=== PATIENT | male | born 1945 | race Caucasian/White ===

== ENCOUNTER → 2017-04-20 | Outpatient (CLI) | payer MEDICARE, OTHER ==
[2015-01-25 20:20] VITALS: BP 122/57
--- NOTE | 2017-04-20 11:28 | RAD ---
INDICATION: Abdominal pain. COMPARISON: None. TECHNIQUE: Grayscale and color ultrasound images obtained through the abdomen. FINDINGS: Aorta/IVC: Largely obscured. Pancreas: Poorly seen. Gallbladder: Gallbladder wall measures up to about 6 mm in portion. Liver: Echogenicity is unremarkable in the visualized portions. Common Bile Duct: Not dilated. Right Kidney: No hydronephrosis. Partially obscured. Left Kidney: No hydronephrosis. Spleen: Unremarkable. IMPRESSION: Thickening of the gallbladder wall is seen. This is a nonspecific finding and could be reactive to adjacent hepatic inflammation, from primary gallbladder inflammation or a systemic process such as hypoproteinemia. If further clarification is desired nuclear hepatobiliary scan may be helpful to further evaluate to ensure that this is not from causes such as cholecystitis. Common bile duct is not dilated.
== END | disposition home or self-care (01) ==
LOC: US 10:50
PROVIDERS: ATTEND Emergency Medicine
DX: K81.9 Cholecystitis, unspecified (principal)
CPT/HCPCS: 76700

== ENCOUNTER → 2017-05-28 | Outpatient (CLI) | payer MEDICARE, OTHER ==
[2015-01-25 20:20] VITALS: BP 122/57
[~2017-05-28] MED LIST: ALPR0.5T6 PO; ASPI-612 PO; CLON0.5T3 PO; ERGO500027 PO; ESOM40CA PO; GADOBUTROL 7.5 MMOL/7.5 ML VIAL IV ONE; IOHEXOL 300 MG/ML 100ML VIAL. IV ONE; LEVO50TA5 PO; LOVA20TA2 PO; MELO7.5T29 PO; PARO40TA3 PO; TAMS0.4C2 PO
--- NOTE | 2017-05-28 12:42 | KCIC ---
EXAM: Brain and internal auditory canal MRI with and without contrast. HISTORY: Retrocochlear masses. Cochlear implant preoperative evaluation. TECHNIQUE: Multiplanar, multisequence magnetic resonance imaging of the brain an internal auditory canals was performed prior to and following the administration of 7 cc Gadavist intravenous contrast. COMPARISON: Correlation is made with a temporal bone CT performed on the same date. FINDINGS: There is no restricted diffusion to suggest acute or subacute infarction. There is no susceptibility effect to suggest hemorrhage. There is no mass effect or midline shift. There is no hydrocephalus. There are a few scattered foci of T2/FLAIR hyperintensity within the cerebral white matter, a nonspecific finding. There is severe paranasal sinus mucosal thickening with maxillary sinus air-fluid levels. There is evidence of lens surgery. The mastoid air cells are clear. There are normal flow voids within the cerebral vessels. The internal auditory canals, membranous labyrinths, facial and vestibulocochlear nerves and trigeminal nerve complexes are unremarkable. The cerebellopontine angles are unremarkable. The postcontrast images are slightly limited due to motion. No suspicious enhancing lesion is seen. IMPRESSION: 1. No acute intracranial finding. 2. Few foci of signal change within the cerebral white matter, likely due to chronic small vessel disease. 3. Severe pansinusitis. 4. Unremarkable internal auditory canals. Please refer to the separate report for the temporal bone CT on the same date for additional findings. Electronically signed by: Malorie Castillo MD (05/28/2017 12:39 PM) [facility]
--- NOTE | 2017-05-28 13:19 | KCIC ---
EXAM: Temporal bone CT with and without contrast. HISTORY: Hearing loss. Cochlear implant preoperative evaluation. TECHNIQUE: Computed tomographic images of the temporal bones were obtained according to high-resolution protocol prior to and following the administration of 50 cc Omnipaque 300 intravenous contrast. *One or more of the following individualized dose reduction techniques were utilized for this examination: 1. Automated exposure control. 2. Adjustment of the mA and/or kV according to patient size. 3. Use of iterative reconstruction technique. COMPARISON: Correlation is made with a brain and internal auditory canal MRI performed on the same date. FINDINGS: The mastoid air cells are clear. The external auditory canals are clear. The tympanic membranes and ossicular chains are intact. There is no abnormal middle ear opacification. The bony labyrinths are unremarkable. There is no evidence of dehiscence. The carotid and jugular canals are normal in position. The temporomandibular joints are intact. There is severe paranasal sinus mucosal thickening with bilateral maxillary sinus air-fluid levels. There is a right maxillary sinus wall thickening due to the sequela of chronic sinusitis. The visualized portions of the brain and calvarium are unremarkable. IMPRESSION: 1. Unremarkable temporal bones. No findings correlate with hearing loss. 2. Severe pansinusitis. Electronically signed by: Malorie Castillo MD (05/28/2017 1:15 PM) [facility]
== END | disposition home or self-care (01) ==
LOC: KCIC MRI 09:58
DX: Z01.818 Encounter for other preprocedural examination (principal); J32.4 Chronic pansinusitis
CPT/HCPCS: 70553; 82565; A9585; Q9967

== ENCOUNTER 2018-10-10 01:58 | Inpatient (IN) | payer MEDICARE, OTHER ==
[2018-10-10] VITALS (8 sets, daily range): BP systolic 84–119; BP diastolic 46–67
[~2018-10-10] VITALS: Ht 177.8 cm; Wt 74.1 kg
[~2018-10-10 01:58] MED LIST changes: +CLON0.5T11 PO; -CLON0.5T3 PO; -GADOBUTROL 7.5 MMOL/7.5 ML VIAL IV ONE; -IOHEXOL 300 MG/ML 100ML VIAL. IV ONE
[2018-10-10 02:20] LABS: BASO % 0 % (0-3); EOS % 0 % (0-3); HEMATOCRIT 43.7 % (39.0-53.0); HEMOGLOBIN 14.8 g/dL (13.0-17.5); LYMPH # 0.2 x10^3/uL (1.0-4.8); LYMPH % 4 % (24-48); MEAN CORPUSCULAR HEMOGLOBIN 33 pg (25-35); MEAN CORPUSCULAR HGB CONC 34 g/dL (31-37); MEAN CORPUSCULAR VOLUME 97 fL (79-100); MONO # 0.1 x10^3/uL (0.0-1.1); MONO % 3 % (0-9); NEUT # 3.8 x10^3uL (1.8-7.7); NEUT % 93 % (31-73); PLATELET COUNT 208 x10^3/uL (140-400); RED BLOOD COUNT 4.53 x10^6/uL (4.30-5.70); RED CELL DISTRIBUTION WIDTH 13.3 % (11.5-14.5); WHITE BLOOD COUNT 4.1 x10^3/uL (4.0-11.0)
--- NOTE | 2018-10-10 02:28 | PHYS DOC ---
Past Medical History Past Medical History: Anxiety, Asthma, Depression, GERD, High Cholesterol, Other Additional Past Medical Histor: CHRONIC FOOT PAIN Past Surgical History: Tonsillectomy, Other Additional Past Surgical Histo: BILAT CATARACT REMOVAL Alcohol Use: None Drug Use: None Adult General Chief Complaint Chief Complaint: CHEST PAIN HPI HPI Patient is a 72 year old male who presents with abdominal pain. Pain started around 2pm yesterday. By 4pm he ate [employer] and the pain had gotten worse. The pain is located in his lower abdomen. Rated a 10/10 and sharp. Now the pain has moved up to his chest and he is SOA. Described as a cramping pain. He feels like he just "ran two miles" and cant catch his breath. He is nauseous, started vomiting and has dry heaves. No diarrhea. Denies any lung or heart conditions. Denies any abdominal surgeries. Denies fever, chills or recent illness. HE DOES DDRINK ALCOHOL BUT NOT EVERY DAY[] Review of Systems Review of Systems Constitutional: Denies fever or chills [] Eyes: Denies change in visual acuity, redness, or eye pain [] HENT: Denies nasal congestion or sore throat [] Respiratory: Denies cough. Complains of shortness of breath [] Cardiovascular: No additional information not addressed in HPI [] GI: Abdominal pain, nausea, vomiting. Denies bloody stools or diarrhea [] : Denies dysuria or hematuria [] Musculoskeletal: Denies back pain or joint pain [] Integument: Denies rash or skin lesions [] Neurologic: Denies headache, focal weakness or sensory changes [] Endocrine: Denies polyuria or polydipsia [] All other systems were reviewed and found to be within normal limits, except as documented in this note. Allergies Allergies Allergies Coded Allergies Type Severity Reaction Last Updated Verified bee venom protein (honey bee) Allergy Intermediate ITCHING, BLOTCHY 05/28/17 No venom-wasp Allergy Intermediate 05/28/17 No Physical Exam Physical Exam Constitutional: Well developed, well nourished, acute distress, non-toxic appearance. [] HENT: Normocephalic, atraumatic, bilateral external ears normal, oropharynx moist, no oral exudates, nose normal. [] Eyes: PERRLA, EOMI, conjunctiva normal, no discharge. [] Neck: Normal range of motion, no tenderness, supple, no stridor. [] Cardiovascular:HTACHYARDIA NO DEFINITE MURMURS Lungs & Thorax: Bilateral breath sounds clear to auscultation [] Abdomen: Bowel sounds normal, soft, no masses, no pulsatile masses. Diffuse tenderness with voluntary guarding. [] Skin: Warm, dry, no erythema, no rash. [] Back: No tenderness, no CVA tenderness. [] Extremities: No tenderness, no cyanosis, no clubbing, ROM intact, no edema. [] Neurologic: Alert and oriented X 3, normal motor function, normal sensory function, no focal deficits noted. [] Psychologic: Affect normal, judgement normal, mood normal. [] EKG EKG []EKG shows a probably sinus rhythm poor baseline no definite ischemia was identified this is a fairly poor quality EKG in general Radiology/Procedures Radiology/Procedures [] Impressions: IMPRESSION: 1. Acute pancreatitis. 2. Wall thickening throughout much of the colon suspicious for colitis. 3. The appendix is negative. 4. Pulmonary nodules of the right lung base largest measuring 4 mm. Per Fleischner guidelines in a patient with risk factors for malignancy optional CT follow-up in 12 months would be advised. Otherwise no follow-up is necessary. Electronically signed by: Philly Mercedes MD (10/10/2018 4:18 AM) [facility] [place] FINDINGS: Heart size normal. Mediastinal silhouette is normal. Calcified granulomas right lung base. No pneumothorax, pulmonary opacities or pleural effusions. Bones are unremarkable. IMPRESSION: No acute process. Electronically signed by: Philly Mercedes MD (10/10/2018 3:48 AM) [facility] [place] DICTATED and SIGNED BY: PHILLY MERCEDES MD DATE: 10/10/18 0348 Course & Med Decision Making Course & Med Decision Making Pertinent Labs and Imaging studies reviewed. (See chart for details) 72-year-old male presenting with abdominal pain burning pain cramping. Initially broad workup was performed initially some concern for chest pain but it sounded more like started with abdominal pain patient does drink alcohol but not every day did have a fatty meal at the onset of symptoms CT scan noted suspect acute pancreatitis lipase normal however but the LFTs are elevated. I did give a dose of Zosyn in the emergency room for possible colitis finding as well as pain control and IV fluids and he did feel better I spoke with Dr. Tucker per usual protocol at 5:30 AM abdominal ultrasound pending we reviewed the CT scan results as well as the need for follow-up of the pulmonary NODULE. inpt gi consult as well. Dragon Disclaimer Dragon Disclaimer This electronic medical record was generated, in whole or in part, using a voice recognition dictation system. Departure Departure Impression: Primary Impression: Elevated LFTs Additional Impressions: Acute pancreatitis Colitis Disposition: ADMITTED INPATIENT Admitting Physician: Enrike Briceño Condition: STABLE Referrals: ELEUTERIO JAQUEZ (PCP) Problem Qualifiers JAGUAR DYER MD Oct 10, 2018 02:28
[2018-10-10 02:29] LABS: PROTHROMBIN TIME PATIENT 13.1 SEC (11.7-14.0)
[2018-10-10 02:34] LABS: CALCIUM 8.7 mg/dL (8.5-10.1); CREATININE 0.8 mg/dL (0.7-1.3); GFR 94.5
[2018-10-10 02:40] LABS: ALBUMIN 3.5 g/dL (3.4-5.0); ALBUMIN/GLOBULIN RATIO 1.2 (1.0-1.7); TOTAL BILIRUBIN 1.2 mg/dL (0.2-1.0); TOTAL PROTEIN 6.5 g/dL (6.4-8.2)
[2018-10-10] MEDS ORDERED: ONDANSETRON PF 4 MG/2 ML VIAL. IV ONE (03:00)
[2018-10-10] MEDS ORDERED: LIDO:MAALOX 1:1 20 ML SINGLE DOSE. SWSW ONE (03:00)
[2018-10-10] MEDS ORDERED: fentaNYL PF VIAL 100 MCG/2 ML VIAL IV ONE (03:00)
[2018-10-10] MEDS ORDERED: CONTRAST GIVEN. MC PRN (03:30)
[2018-10-10] MEDS ORDERED: IV NORMAL SALINE 1000ML BAG 1,000 ML IV ONE ×2 (03:30→16:30)
--- NOTE | 2018-10-10 03:50 | RAD ---
AP chest x-ray HISTORY: Chest pain FINDINGS: Heart size normal. Mediastinal silhouette is normal. Calcified granulomas right lung base. No pneumothorax, pulmonary opacities or pleural effusions. Bones are unremarkable. IMPRESSION: No acute process. Electronically signed by: Giorgi Mercedes MD (10/10/2018 3:48 AM) [facility] [place]
[2018-10-10] MEDS ORDERED: IOHEXOL 300 MG/ML 100ML VIAL. IV ONE (04:00)
--- NOTE | 2018-10-10 04:20 | RAD ---
CT abdomen and pelvis with contrast PQRS statement: CT scans at this facility use dose reduction including either automated exposure control, iterative reconstructions, and /or weight based radiation dosing via mA and kV modification when appropriate to reduce radiation dose to as low as reasonably achievable. HISTORY: Abdominal pain, elevated liver function tests. TECHNIQUE: Helical CT imaging abdomen and pelvis with 75 mL Omnipaque 300 intravenous contrast. Abdomen findings: 4 mm pulmonary nodule right middle lobe image 4. 4 mm nodule right lower lobe image 10. Lower lumbar disc disease and facet arthritis with spinal canal and neural frontal stenoses of L5 on S1. Acute pancreatitis with edema throughout the gland. Liver, gallbladder, adrenals and spleen are unremarkable. Small scar left renal upper pole. Small right renal lower pole 2 mm calculus. Subcentimeter hypodense lesion right kidney too small to characterize. Descending duodenal diverticulum adjacent of the pancreas, as well as edema surrounding the duodenum as well as surrounding the neck of the gallbladder from pancreatitis. There is wall thickening of the cecum, ascending, transverse and ascending colon likely colitis. No bowel obstruction. Appendix is negative. No abdominal fluid or adenopathy. Pelvis findings: Bladder, prostate, rectum and bones are unremarkable. IMPRESSION: 1. Acute pancreatitis. 2. Wall thickening throughout much of the colon suspicious for colitis. 3. The appendix is negative. 4. Pulmonary nodules of the right lung base largest measuring 4 mm. Per Fleischner guidelines in a patient with risk factors for malignancy optional CT follow-up in 12 months would be advised. Otherwise no follow-up is necessary. Electronically signed by: Giorgi Mercedes MD (10/10/2018 4:18 AM) [facility]
[2018-10-10] MEDS ORDERED: ONDANSETRON PF 4 MG/2 ML VIAL. IV PRN (04:30)
[2018-10-10] MEDS ORDERED: TAMS0.4C97 PO (05:03)
[2018-10-10] MEDS ORDERED: GARL100T2 PO (05:03)
[2018-10-10] MEDS ORDERED: MULT1CAP12 PO (05:03)
[2018-10-10] MEDS ORDERED: OMEP40CA5 PO (05:03)
[2018-10-10] MEDS ORDERED: FLUT10.6 IH (05:03)
[2018-10-10] MEDS ORDERED: ALPR0.5T6 PO (05:03)
[2018-10-10] MEDS: MORPHINE SULFATE 4 MG/ML VIAL. IV PRN ×3 (05:05→21:04)
[2018-10-10 05:38] LABS: % BANDS 16 % (0-9); % LYMPHS 12 % (24-48); % MONOS 2 % (0-10); % SEGS 70 % (35-66)
[2018-10-10 05:39] LABS: PLT ESTIMATE ADEQUATE (ADEQUATE)
[2018-10-10] MEDS: IV NORMAL SALINE 1000ML BAG 1,000 ML IV SCH ×3 (06:01→21:00)
--- NOTE | 2018-10-10 08:50 | RAD ---
Ultrasound of the abdomen limited. HISTORY: Right upper quadrant pain, elevated LFTs Ultrasound was used to evaluate the right upper quadrant of the abdomen. Liver is difficult to fully evaluate. A focal liver lesion was not identified. Pancreas was obscured. Liver is normal in size. Vena cava at the liver was unremarkable. There is flow with color imaging in the portal vein. There is sludge noted in the gallbladder. Definite gallstones were not identified. Gallbladder wall is mildly thickened measuring 5 mm. Common duct was normal measuring 5 mm. Right kidney is 10.9 cm in length without hydronephrosis. IMPRESSION: 1. Sludge noted in the gallbladder with gallbladder wall thickening possible cholecystitis. 2. Liver incompletely evaluated but no focal liver lesion noted. 3. Poor visualization of the pancreas. 4. No right hydronephrosis. Electronically signed by: Aron Smith MD (10/10/2018 8:47 AM) [facility]
--- NOTE | 2018-10-10 10:27 | EKG ---
[facility] [address] [place] [address] Test Date: 2018-10-10 Test Time: 02:07:28 Pat Name: MAGI VIERA Department: Room: [facility] Gender: M [employer] Att[employer]: : 1945 Requested By: JAGUAR YDER Order Number: [id number] Reading MD: Kael Lawrence Measurements Intervals [place] Rate: 100 P: 0 UT: 92 QRS: -56 QRSD: 92 T: 26 QT: 330 QTc: 429 Interpretive Statements SINUS RHYTHM ABNORMAL LEFT AXIS DEVIATION LEFT ANTERIOR FASCICULAR BLOCK QRS(T) CONTOUR ABNORMALITY CONSIDER ANTEROLATERAL MYOCARDIAL DAMAGE ABNORMAL ECG Electronically Signed On 10-18-2018 12:50:41 CDT by Kael Lawrence
--- NOTE | 2018-10-10 11:08 | PDOC2 ---
CONSULT Date of Consult Date of Consult DATE: 10/10/18 TIME: 10:59 Reason for Consult Reason for Consult: abd and chest pain, pancreatitis on CT and abn LFT History of Present Illness Reason for Visit: This is a 72 yo male with history of GERD on nexium for several years and mild constipation on stool softeners, who presents with acute onset abdominal pain radiating into chest yesterday. No prior similar symptoms, but was told LFTS off a little on recent blood work by PCP, Dr. mitchell. Does drink alcohol regularly but has never been told he has liver disease or pancreatitis related. US from several years ago here showed sludge but was otherwise normal. Reports normal colonoscopy a few years ago as well Past Medical History GI: Constipation, GERD Musculoskeletal: Osteoarthritis Past Surgical History Past Surgical History: Cataract Removal, Tonsillectomy Social History Quit ALCOHOL: other (daily) Current Problem List Problem List Problems Medical Problems: (1) Acute pancreatitis Status: Acute (2) Colitis Status: Acute Current Medications Current Medications Current Medications Fentanyl Citrate (Fentanyl 2ml Vial) 50 mcg 1X ONCE IV Last administered on at 02:29; Start 10/10/18 at 03:00; Stop 10/10/18 at 03:01; Status DC Ondansetron HCl (Zofran) 4 mg 1X ONCE IV Last administered on 10/10/18at 02:29 ; Start 10/10/18 at 03:00; Stop 10/10/18 at 03:01; Status DC Multi-Ingredient Mouthwash/Gargle (Gi Cocktail) 20 ml 1X ONCE SWSW Last administered on 10/10/18at 02:30; Start 10/10/18 at 03:00; Stop 10/10/18 at 03:01 ; Status DC Sodium Chloride 1,000 ml @ 1,000 mls/hr 1X ONCE IV Last administered on at 03:18; Start 10/10/18 at 03:30; Stop 10/10/18 at 04:29; Status DC Iohexol (Omnipaque 300 Mg/ml) 75 ml 1X ONCE IV Last administered on 10/10/18at 03:49; Start 10/10/18 at 04:00; Stop 10/10/18 at 04:01; Status DC Info (CONTRAST GIVEN -- Rx MONITORING) 1 each PRN DAILY PRN MC SEE COMMENTS; Start 10/10/18 at 03:30; Stop 10/12/18 at 03:29 Ondansetron HCl (Zofran) 4 mg PRN Q8HRS PRN IV NAUSEA/VOMITING 1ST CHOICE; Start 10/10/18 at 04:30; Stop 10/11/18 at 04:29 Morphine Sulfate (Morphine Sulfate) 4 mg PRN Q2HR PRN IV SEVERE PAIN Last administered on 10/10/18at 05:05; Start 10/10/18 at 04:30; Stop 10/11/18 at 04:29 Sodium Chloride 1,000 ml @ 125 mls/hr Q8H IV Last administered on 10/10/18at 06 :01; Start 10/10/18 at 05:00; Stop 10/11/18 at 04:59 Active Scripts Active Reported Flovent 44MCG Hfa (Fluticasone Propionate) 10.6 Gm Aer.w.adap 2 Puff IH BID PRN Alprazolam 0.5 Mg Tablet 1 Tab PO DAILY PRN Omeprazole 40 Mg Capsule.dr 1 Cap PO HS Odor Free Garlic (Garlic) 100 Mg Tablet 100 Mg PO HS Urinozinc Prostate Formula Cap (Multivits-Min/Hrb Cb121) 1 Each Capsule 2 Each PO DAILY Flomax (Tamsulosin Hcl) 0.4 Mg Cap.er.24h 2 Cap PO DAILY Paroxetine Hcl 40 Mg Tablet 1 Tab PO DAILY Meloxicam 7.5 Mg Tablet 1 Tab PO DAILY Lovastatin 20 Mg Tablet 1 Tab PO DAILY Levothyroxine Sodium 50 Mcg Tablet 1 Tab PO DAILY Vitamin D2 (Ergocalciferol (Vitamin D2)) 50,000 Unit Capsule 1 Cap PO WEEKLY Aspirin Ec (Aspirin) 81 Mg Tablet.dr 1 Tab PO DAILY Allergies Allergies: Coded Allergies: bee venom protein (honey bee) (Unverified Allergy, Intermediate, ITCHING, BLOTCHY, 05/28/17) venom-wasp (Unverified Allergy, Intermediate, 05/28/17) ROS Cardiovascular: yes Chest Pain Gastrointestinal: Yes Abdominal Pain, Yes Constipation Physical Exam General: Alert, Oriented X3 HEENT: PERRLA Lungs: Clear to auscultation Heart: Regular rate, Normal S1, Normal S2 Abdomen: Normal bowel sounds, Soft, No hepatosplenomegaly, Other (very little tenderness today) Extremities: No clubbing, No cyanosis Skin: No rashes Psych/Mental Status: Mental status NL Vitals VITALS Vital Signs Date Time Temp Pulse Resp B/P (MAP) Pulse Ox O2 Delivery O2 Flow Rate FiO2 10/10/18 08:20 Nasal Cannula 2.0 10/10/18 07:00 97.6 119 20 100/52 (68) 92 97.6 Labs Labs Laboratory Tests Test 10/10/18 02:05 White Blood Count 4.1 x10^3/uL (4.0-11.0) Red Blood Count 4.53 x10^6/uL (4.30-5.70) Hemoglobin 14.8 g/dL (13.0-17.5) Hematocrit 43.7 % (39.0-53.0) Mean Corpuscular Volume 97 fL (79-100) Mean Corpuscular Hemoglobin 33 pg (25-35) Mean Corpuscular Hemoglobin Concent 34 g/dL (31-37) Red Cell Distribution Width 13.3 % (11.5-14.5) Platelet Count 208 x10^3/uL (140-400) Neutrophils (%) (Auto) 93 % (31-73) Lymphocytes (%) (Auto) 4 % (24-48) Monocytes (%) (Auto) 3 % (0-9) Eosinophils (%) (Auto) 0 % (0-3) Basophils (%) (Auto) 0 % (0-3) Neutrophils # (Auto) 3.8 x10^3uL (1.8-7.7) Lymphocytes # (Auto) 0.2 x10^3/uL (1.0-4.8) Monocytes # (Auto) 0.1 x10^3/uL (0.0-1.1) Eosinophils # (Auto) 0.0 x10^3/uL (0.0-0.7) Basophils # (Auto) 0.0 x10^3/uL (0.0-0.2) Segmented Neutrophils % 70 % (35-66) Band Neutrophils % 16 % (0-9) Lymphocytes % 12 % (24-48) Monocytes % 2 % (0-10) Platelet Estimate Adequate (ADEQUATE) Prothrombin Time 13.1 SEC (11.7-14.0) Prothromb Time International Ratio 1.0 (0.8-1.1) Sodium Level 142 mmol/L (136-145) Potassium Level 4.0 mmol/L (3.5-5.1) Chloride Level 103 mmol/L (98-107) Carbon Dioxide Level 23 mmol/L (21-32) Anion Gap 16 (6-14) Blood Urea Nitrogen 20 mg/dL (8-26) Creatinine 0.8 mg/dL (0.7-1.3) Estimated GFR (Cockcroft-Gault) 94.5 BUN/Creatinine Ratio 25 (6-20) Glucose Level 158 mg/dL (70-99) Calcium Level 8.7 mg/dL (8.5-10.1) Total Bilirubin 1.2 mg/dL (0.2-1.0) Aspartate Amino Transf (AST/SGOT) 523 U/L (15-37) Alanine Aminotransferase (ALT/SGPT) 183 U/L (16-63) Alkaline Phosphatase 433 U/L (46-116) Troponin I Quantitative < 0.017 ng/mL (0.000-0.055) GT-Fas-C-Type Natriuretic Peptide 289 pg/mL (0-124) Total Protein 6.5 g/dL (6.4-8.2) Albumin 3.5 g/dL (3.4-5.0) Albumin/Globulin Ratio 1.2 (1.0-1.7) Lipase 53 U/L (73-393) Laboratory Tests Test 10/10/18 02:05 White Blood Count 4.1 x10^3/uL (4.0-11.0) Red Blood Count 4.53 x10^6/uL (4.30-5.70) Hemoglobin 14.8 g/dL (13.0-17.5) Hematocrit 43.7 % (39.0-53.0) Mean Corpuscular Volume 97 fL (79-100) Mean Corpuscular Hemoglobin 33 pg (25-35) Mean Corpuscular Hemoglobin Concent 34 g/dL (31-37) Red Cell Distribution Width 13.3 % (11.5-14.5) Platelet Count 208 x10^3/uL (140-400) Neutrophils (%) (Auto) 93 % (31-73) Lymphocytes (%) (Auto) 4 % (24-48) Monocytes (%) (Auto) 3 % (0-9) Eosinophils (%) (Auto) 0 % (0-3) Basophils (%) (Auto) 0 % (0-3) Neutrophils # (Auto) 3.8 x10^3uL (1.8-7.7) Lymphocytes # (Auto) 0.2 x10^3/uL (1.0-4.8) Monocytes # (Auto) 0.1 x10^3/uL (0.0-1.1) Eosinophils # (Auto) 0.0 x10^3/uL (0.0-0.7) Basophils # (Auto) 0.0 x10^3/uL (0.0-0.2) Segmented Neutrophils % 70 % (35-66) Band Neutrophils % 16 % (0-9) Lymphocytes % 12 % (24-48) Monocytes % 2 % (0-10) Platelet Estimate Adequate (ADEQUATE) Prothrombin Time 13.1 SEC (11.7-14.0) Prothromb Time International Ratio 1.0 (0.8-1.1) Sodium Level 142 mmol/L (136-145) Potassium Level 4.0 mmol/L (3.5-5.1) Chloride Level 103 mmol/L (98-107) Carbon Dioxide Level 23 mmol/L (21-32) Anion Gap 16 (6-14) Blood Urea Nitrogen 20 mg/dL (8-26) Creatinine 0.8 mg/dL (0.7-1.3) Estimated GFR (Cockcroft-Gault) 94.5 BUN/Creatinine Ratio 25 (6-20) Glucose Level 158 mg/dL (70-99) Calcium Level 8.7 mg/dL (8.5-10.1) Total Bilirubin 1.2 mg/dL (0.2-1.0) Aspartate Amino Transf (AST/SGOT) 523 U/L (15-37) Alanine Aminotransferase (ALT/SGPT) 183 U/L (16-63) Alkaline Phosphatase 433 U/L (46-116) Troponin I Quantitative < 0.017 ng/mL (0.000-0.055) DN-Bcs-N-Type Natriuretic Peptide 289 pg/mL (0-124) Total Protein 6.5 g/dL (6.4-8.2) Albumin 3.5 g/dL (3.4-5.0) Albumin/Globulin Ratio 1.2 (1.0-1.7) Lipase 53 U/L (73-393) Images Images CT- pancreatitis- US sludge but no stones and normal CBD Assessment/Plan Assessment/Plan Acute onset abd pain rad into chest yesterday- with associated pancreatitis on CT but NORMAL lipase- however abnormal LFTS- with pattern that is mixed , could represent alcohol but also cant exclude passing gallstone etc- EKG reported as normal. Abn LFTS SGOT greater than SGPT- and pancreatitis with normal LIPASE- imaging mixed as well- unclear source Pancreatitis on CT- this fits with symptoms yesterday but none temder today and LIPASE normal Plan- repeat labs trial of liquid diet and monitor JEREMIAH CARRENO MD Oct 10, 2018 11:08
[2018-10-10] MEDS ORDERED: PANTOPRAZOLE IV PUSH 40 MG VIAL. IVP SCH (11:30)
--- NOTE | 2018-10-10 11:33 | PDOC1 ---
History and Physical Date of Admission Date of Admission DATE: 10/10/18 TIME: 11:33 Identification/Chief Complaint Chief Complaint presents with abdominal pain. Pain started around 2pm 10/09 By 4pm he ate [employer] and the pain had gotten worse. The pain is located in his lower abdomen. Rated a 10/10 and sharp. Now the pain has moved up to his chest and he is SOA. Described as a cramping pain. feels like he just "ran two miles" and cant catch his breath. He WAS nauseous, started vomiting and HAD dry heaves. Sludge noted in the gallbladder with gallbladder wall thickening possible cholecystitis. ON SONO Past Medical History Past Medical History Past Medical History Past Medical History Past Medical History: Anxiety, Asthma, Depression, GERD, High Cholesterol, Other Additional Past Medical Histor: CHRONIC FOOT PAIN Past Surgical History: Tonsillectomy, Other Additional Past Surgical Histo: BILAT CATARACT REMOVAL Alcohol Use: None Drug Use: None family hx hyperlipidemia Cardiovascular: Hyperlipidemia Pulmonary: COPD GI: Constipation, GERD Musculoskeletal: Osteoarthritis Rheumatologic: No pertinent hx ENT: No pertinent hx, Other (COCHLEAR IMPLANT [facility]) Past Surgical History Past Surgical History: Cataract Removal, Tonsillectomy Family History Family History Past Medical History GI: Constipation, GERD Musculoskeletal: Osteoarthritis Past Surgical History Past Surgical History: Cataract Removal, Tonsillectomy Social History Quit tobacco ALCOHOL: other (daily) Family History: High Cholestrol, Hypertension Social History Smoke: Quit ALCOHOL: other (THREE TIME A WEEK, 2 SHOTS [place]) Drugs: None Current Problem List Problem List Problems Medical Problems: (1) Acute pancreatitis Status: Acute (2) Colitis Status: Acute Current Medications Current Medications Current Medications Fentanyl Citrate (Fentanyl 2ml Vial) 50 mcg 1X ONCE IV Last administered on at 02:29; Start 10/10/18 at 03:00; Stop 10/10/18 at 03:01; Status DC Ondansetron HCl (Zofran) 4 mg 1X ONCE IV Last administered on 10/10/18at 02:29 ; Start 10/10/18 at 03:00; Stop 10/10/18 at 03:01; Status DC Multi-Ingredient Mouthwash/Gargle (Gi Cocktail) 20 ml 1X ONCE SWSW Last administered on 10/10/18at 02:30; Start 10/10/18 at 03:00; Stop 10/10/18 at 03:01 ; Status DC Sodium Chloride 1,000 ml @ 1,000 mls/hr 1X ONCE IV Last administered on at 03:18; Start 10/10/18 at 03:30; Stop 10/10/18 at 04:29; Status DC Iohexol (Omnipaque 300 Mg/ml) 75 ml 1X ONCE IV Last administered on 10/10/18at 03:49; Start 10/10/18 at 04:00; Stop 10/10/18 at 04:01; Status DC Info (CONTRAST GIVEN -- Rx MONITORING) 1 each PRN DAILY PRN MC SEE COMMENTS; Start 10/10/18 at 03:30; Stop 10/12/18 at 03:29 Ondansetron HCl (Zofran) 4 mg PRN Q8HRS PRN IV NAUSEA/VOMITING 1ST CHOICE; Start 10/10/18 at 04:30; Stop 10/11/18 at 04:29 Morphine Sulfate (Morphine Sulfate) 4 mg PRN Q2HR PRN IV SEVERE PAIN Last administered on 10/10/18at 05:05; Start 10/10/18 at 04:30; Stop 10/11/18 at 04:29 Sodium Chloride 1,000 ml @ 125 mls/hr Q8H IV Last administered on 10/10/18at 06 :01; Start 10/10/18 at 05:00; Stop 10/11/18 at 04:59 Active Scripts Active Reported Flovent 44MCG Hfa (Fluticasone Propionate) 10.6 Gm Aer.w.adap 2 Puff IH BID PRN Alprazolam 0.5 Mg Tablet 1 Tab PO DAILY PRN Omeprazole 40 Mg Capsule.dr Jolley Cap PO HS Odor Free Garlic (Garlic) 100 Mg Tablet 100 Mg PO HS Urinozinc Prostate Formula Cap (Multivits-Min/Hrb Cb121) 1 Each Capsule 2 Each PO DAILY Flomax (Tamsulosin Hcl) 0.4 Mg Cap.er.24h 2 Cap PO DAILY Paroxetine Hcl 40 Mg Tablet 1 Tab PO DAILY Meloxicam 7.5 Mg Tablet 1 Tab PO DAILY Lovastatin 20 Mg Tablet 1 Tab PO DAILY Levothyroxine Sodium 50 Mcg Tablet 1 Tab PO DAILY Vitamin D2 (Ergocalciferol (Vitamin D2)) 50,000 Unit Capsule 1 Cap PO WEEKLY Aspirin Ec (Aspirin) 81 Mg Tablet.dr 1 Tab PO DAILY Allergies Allergies: Coded Allergies: bee venom protein (honey bee) (Unverified Allergy, Intermediate, ITCHING, BLOTCHY, 05/28/17) venom-wasp (Unverified Allergy, Intermediate, 05/28/17) ROS Review of System Review of Systems Review of Systems Constitutional: Denies fever or chills [] Eyes: Denies change in visual acuity, redness, or eye pain [] HENT: Denies nasal congestion or sore throat [] Respiratory: Denies cough. Complains of shortness of breath [] Cardiovascular: No additional information not addressed in HPI [] GI: Abdominal pain, nausea, vomiting. Denies bloody stools or diarrhea [] : Denies dysuria or hematuria [] Musculoskeletal: Denies back pain or joint pain [] Integument: Denies rash or skin lesions [] Neurologic: Denies headache, focal weakness or sensory changes [] Endocrine: Denies polyuria or polydipsia [] 14 PT systems were reviewed and found to be within normal limits, except as documented Physical Exam Physical Exam Physical Exam Physical Exam Constitutional: Well developed, well nourished, acute distress, non-toxic appearance. [] HENT: Normocephalic, atraumatic, bilateral external ears normal, oropharynx moist, no oral exudates, nose normal. [] Eyes: PERRLA, EOMI, conjunctiva normal, no discharge. [] Neck: Normal range of motion, no tenderness, supple, no stridor. [] Cardiovascular:HTACHYARDIA NO DEFINITE MURMURS Lungs & Thorax: Bilateral breath sounds clear to auscultation [] Abdomen: Bowel sounds normal, soft, no masses, no pulsatile masses. Diffuse tenderness with voluntary guarding. [] Skin: Warm, dry, no erythema, no rash. [] Back: No tenderness, no CVA tenderness. [] Extremities: No tenderness, no cyanosis, no clubbing, ROM intact, no edema. [] Neurologic: Alert and oriented X 3, normal motor function, normal sensory function, no focal deficits noted. [] Psychologic: Affect normal, judgement normal, mood normal. [] General: Alert, Oriented X3, Cooperative, mild distress HEENT: Atraumatic, PERRLA Lungs: Clear to auscultation Heart: S1S2, no thrills, no rubs, no gallops, no murmurs Cardiovascular: S1 Abdomen: Normal bowel sounds, Soft Rectal Exam: not examined Neuro: Normal speech, Cranial nerves 3-12 NL Psych/Mental Status: Mental status NL, Mood NL Vitals Vitals Vital Signs Date Time Temp Pulse Resp B/P (MAP) Pulse Ox O2 Delivery O2 Flow Rate FiO2 10/10/18 11:05 110 90/51 (64) 10/10/18 11:00 98.0 18 91 Nasal Cannula 2.0 98.0 Labs Labs Laboratory Tests Test 10/10/18 02:05 White Blood Count 4.1 x10^3/uL (4.0-11.0) Red Blood Count 4.53 x10^6/uL (4.30-5.70) Hemoglobin 14.8 g/dL (13.0-17.5) Hematocrit 43.7 % (39.0-53.0) Mean Corpuscular Volume 97 fL (79-100) Mean Corpuscular Hemoglobin 33 pg (25-35) Mean Corpuscular Hemoglobin Concent 34 g/dL (31-37) Red Cell Distribution Width 13.3 % (11.5-14.5) Platelet Count 208 x10^3/uL (140-400) Neutrophils (%) (Auto) 93 % (31-73) Lymphocytes (%) (Auto) 4 % (24-48) Monocytes (%) (Auto) 3 % (0-9) Eosinophils (%) (Auto) 0 % (0-3) Basophils (%) (Auto) 0 % (0-3) Neutrophils # (Auto) 3.8 x10^3uL (1.8-7.7) Lymphocytes # (Auto) 0.2 x10^3/uL (1.0-4.8) Monocytes # (Auto) 0.1 x10^3/uL (0.0-1.1) Eosinophils # (Auto) 0.0 x10^3/uL (0.0-0.7) Basophils # (Auto) 0.0 x10^3/uL (0.0-0.2) Segmented Neutrophils % 70 % (35-66) Band Neutrophils % 16 % (0-9) Lymphocytes % 12 % (24-48) Monocytes % 2 % (0-10) Platelet Estimate Adequate (ADEQUATE) Prothrombin Time 13.1 SEC (11.7-14.0) Prothromb Time International Ratio 1.0 (0.8-1.1) Sodium Level 142 mmol/L (136-145) Potassium Level 4.0 mmol/L (3.5-5.1) Chloride Level 103 mmol/L (98-107) Carbon Dioxide Level 23 mmol/L (21-32) Anion Gap 16 (6-14) Blood Urea Nitrogen 20 mg/dL (8-26) Creatinine 0.8 mg/dL (0.7-1.3) Estimated GFR (Cockcroft-Gault) 94.5 BUN/Creatinine Ratio 25 (6-20) Glucose Level 158 mg/dL (70-99) Calcium Level 8.7 mg/dL (8.5-10.1) Total Bilirubin 1.2 mg/dL (0.2-1.0) Aspartate Amino Transf (AST/SGOT) 523 U/L (15-37) Alanine Aminotransferase (ALT/SGPT) 183 U/L (16-63) Alkaline Phosphatase 433 U/L (46-116) Troponin I Quantitative < 0.017 ng/mL (0.000-0.055) ZE-Qug-V-Type Natriuretic Peptide 289 pg/mL (0-124) Total Protein 6.5 g/dL (6.4-8.2) Albumin 3.5 g/dL (3.4-5.0) Albumin/Globulin Ratio 1.2 (1.0-1.7) Lipase 53 U/L (73-393) Laboratory Tests Test 10/10/18 02:05 White Blood Count 4.1 x10^3/uL (4.0-11.0) Red Blood Count 4.53 x10^6/uL (4.30-5.70) Hemoglobin 14.8 g/dL (13.0-17.5) Hematocrit 43.7 % (39.0-53.0) Mean Corpuscular Volume 97 fL (79-100) Mean Corpuscular Hemoglobin 33 pg (25-35) Mean Corpuscular Hemoglobin Concent 34 g/dL (31-37) Red Cell Distribution Width 13.3 % (11.5-14.5) Platelet Count 208 x10^3/uL (140-400) Neutrophils (%) (Auto) 93 % (31-73) Lymphocytes (%) (Auto) 4 % (24-48) Monocytes (%) (Auto) 3 % (0-9) Eosinophils (%) (Auto) 0 % (0-3) Basophils (%) (Auto) 0 % (0-3) Neutrophils # (Auto) 3.8 x10^3uL (1.8-7.7) Lymphocytes # (Auto) 0.2 x10^3/uL (1.0-4.8) Monocytes # (Auto) 0.1 x10^3/uL (0.0-1.1) Eosinophils # (Auto) 0.0 x10^3/uL (0.0-0.7) Basophils # (Auto) 0.0 x10^3/uL (0.0-0.2) Segmented Neutrophils % 70 % (35-66) Band Neutrophils % 16 % (0-9) Lymphocytes % 12 % (24-48) Monocytes % 2 % (0-10) Platelet Estimate Adequate (ADEQUATE) Prothrombin Time 13.1 SEC (11.7-14.0) Prothromb Time International Ratio 1.0 (0.8-1.1) Sodium Level 142 mmol/L (136-145) Potassium Level 4.0 mmol/L (3.5-5.1) Chloride Level 103 mmol/L (98-107) Carbon Dioxide Level 23 mmol/L (21-32) Anion Gap 16 (6-14) Blood Urea Nitrogen 20 mg/dL (8-26) Creatinine 0.8 mg/dL (0.7-1.3) Estimated GFR (Cockcroft-Gault) 94.5 BUN/Creatinine Ratio 25 (6-20) Glucose Level 158 mg/dL (70-99) Calcium Level 8.7 mg/dL (8.5-10.1) Total Bilirubin 1.2 mg/dL (0.2-1.0) Aspartate Amino Transf (AST/SGOT) 523 U/L (15-37) Alanine Aminotransferase (ALT/SGPT) 183 U/L (16-63) Alkaline Phosphatase 433 U/L (46-116) Troponin I Quantitative < 0.017 ng/mL (0.000-0.055) ZO-Olb-O-Type Natriuretic Peptide 289 pg/mL (0-124) Total Protein 6.5 g/dL (6.4-8.2) Albumin 3.5 g/dL (3.4-5.0) Albumin/Globulin Ratio 1.2 (1.0-1.7) Lipase 53 U/L (73-393) Images Images REASON: RUQ U/S, NEW PANCREATITIS, ELEV LFT'S, R/O GALLSTONE DISEASE PROCEDURE: ABDOMEN LTD Ultrasound of the abdomen limited. HISTORY: Right upper quadrant pain, elevated LFTs Ultrasound was used to evaluate the right upper quadrant of the abdomen. Liver is difficult to fully evaluate. A focal liver lesion was not identified. Pancreas was obscured. Liver is normal in size. Vena cava at the liver was unremarkable. There is flow with color imaging in the portal vein. There is sludge noted in the gallbladder. Definite gallstones were not identified. Gallbladder wall is mildly thickened measuring 5 mm. Common duct was normal measuring 5 mm. Right kidney is 10.9 cm in length without hydronephrosis. IMPRESSION: 1. Sludge noted in the gallbladder with gallbladder wall thickening possible cholecystitis. 2. Liver incompletely evaluated but no focal liver lesion noted. 3. Poor visualization of the pancreas. 4. No right hydronephrosis. Electronically signed by: Aron Smith MD (10/10/2018 8:47 AM) [facility] DICTATED and SIGNED BY: ARON SMITH MD DATE: 10/10/[address] abdomen and pelvis with contrast PQRS statement: CT scans at this facility use dose reduction including either automated exposure control, iterative reconstructions, and /or weight based radiation dosing via mA and kV modification when appropriate to reduce radiation dose to as low as reasonably achievable. HISTORY: Abdominal pain, elevated liver function tests. TECHNIQUE: Helical CT imaging abdomen and pelvis with 75 mL Omnipaque 300 intravenous contrast. Abdomen findings: 4 mm pulmonary nodule right middle lobe image 4. 4 mm nodule right lower lobe image 10. Lower lumbar disc disease and facet arthritis with spinal canal and neural frontal stenoses of L5 on S1. Acute pancreatitis with edema throughout the gland. Liver, gallbladder, adrenals and spleen are unremarkable. Small scar left renal upper pole. Small right renal lower pole 2 mm calculus. Subcentimeter hypodense lesion right kidney too small to characterize. Descending duodenal diverticulum adjacent of the pancreas, as well as edema surrounding the duodenum as well as surrounding the neck of the gallbladder from pancreatitis. There is wall thickening of the cecum, ascending, transverse and ascending colon likely colitis. No bowel obstruction. Appendix is negative. No abdominal fluid or adenopathy. Pelvis findings: Bladder, prostate, rectum and bones are unremarkable. IMPRESSION: 1. Acute pancreatitis. 2. Wall thickening throughout much of the colon suspicious for colitis. 3. The appendix is negative. 4. Pulmonary nodules of the right lung base largest measuring 4 mm. Per Fleischner guidelines in a patient with risk factors for malignancy optional CT follow-up in 12 months would be advised. Otherwise no follow-up is necessary. Electronically signed by: Philly Mercedes MD (10/10/2018 4:18 AM) [facility] DICTATED and SIGNED BY: PHILLY MERCEDES MD DATE: 10/10/18 0418 VTE Prophylaxis Ordered VTE Prophylaxis Devices: Yes VTE Pharmacological Prophylaxi: Yes Assessment/Plan Assessment/Plan IMPRESSION: 1. Acute pancreatitis.POSSIBLE PASSED STONE 2. Wall thickening throughout much of the colon suspicious for colitis. 3. The appendix is negative. 4. Pulmonary nodules of the right lung base largest measuring 4 mm. Per Fleischner guidelines in a patient with risk factors for malignancy optional CT follow-up in 12 months would be advised. 5. Sludge noted in the gallbladder with gallbladder wall thickening possible cholecystitis. 6.GERD 7.BPH 8.HYPERLIPIDEMIA plan gi consult gen surgery consult dvt prophylaxis iv fluid support iv protonix npo HOME MEDS 58 MIN PT EXAM, CHART REVIEW, > 50% of time spent with exam, chart review, pt care coordination KUMAR TALLEY MD Oct 10, 2018 11:33
[2018-10-10] MEDS: LEVOTHYROXINE 50 MCG TABLET PO SCH (15:00)
[2018-10-10] MEDS: ENOXAPARIN 40 MG/0.4 ML SYRINGE. SQ SCH (16:22)
[2018-10-10] MEDS: ASPIRIN ENTERIC COATED 81 MG TABLET.DR. PO SCH (16:23)
[2018-10-10] MEDS: PARoxetine 20 MG TABLET PO SCH (16:23)
[2018-10-10] MEDS: MULTIVITAMIN with MINERAL TABLET. PO SCH (16:23)
[2018-10-10] MEDS: TAMSULOSIN 0.4 MG CAP.ER.24H. PO SCH (16:24)
[2018-10-10] MEDS: ATORVASTATIN CALCIUM 10 MG TABLET. PO SCH (21:03)
[2018-10-10] MEDS: ALPRAZolam 0.5 MG TABLET PO PRN (21:04)
[2018-10-10] MEDS: BUDESONIDE 0.5 MG/2 ML NEBU. NEB SCH (21:37)
[2018-10-11 02:27] VITALS: BP 108/60
[2018-10-11 05:07] LABS: ALBUMIN 2.3 g/dL (3.4-5.0); DIRECT BILIRUBIN 2.9 mg/dL (0.0-0.2); TOTAL BILIRUBIN 3.7 mg/dL (0.2-1.0); TOTAL PROTEIN 5.2 g/dL (6.4-8.2)
[2018-10-11 06:55] VITALS: BP 116/66
[2018-10-11] MEDS: BUDESONIDE 0.5 MG/2 ML NEBU. NEB SCH ×2 (07:58→19:34)
[2018-10-11] MEDS: PARoxetine 20 MG TABLET PO SCH (09:00)
[2018-10-11] MEDS: TAMSULOSIN 0.4 MG CAP.ER.24H. PO SCH (09:00)
[2018-10-11] MEDS: PANTOPRAZOLE 40 MG TABLET.DR. PO SCH (09:00)
[2018-10-11] MEDS: ASPIRIN ENTERIC COATED 81 MG TABLET.DR. PO SCH (09:00)
[2018-10-11] MEDS: LEVOTHYROXINE 50 MCG TABLET PO SCH (09:00)
[2018-10-11] MEDS: MULTIVITAMIN with MINERAL TABLET. PO SCH (09:00)
[2018-10-11] MEDS ORDERED: ERGOCALCIFEROL (VITAMIN D2) 50,000 UNIT CAPSULE. PO SCH (09:00)
--- NOTE | 2018-10-11 09:28 | PDOC ---
PROGRESS NOTES History of Present Illness History of Present Illness Assessment/Plan Assessment/Plan IMPRESSION: 1. Acute pancreatitis.POSSIBLE PASSED STONE 2. Wall thickening throughout much of the colon suspicious for colitis. 3. The appendix is negative. 4. Pulmonary nodules of the right lung base largest measuring 4 mm. Per Fleischner guidelines in a patient with risk factors for malignancy optional CT follow-up in 12 months would be advised. 5. Sludge noted in the gallbladder with gallbladder wall thickening possible cholecystitis. 6.GERD 7.BPH 8.HYPERLIPIDEMIA 9. transaminitis plan gi following gen surgery consult dvt prophylaxis iv fluid support iv protonix trial of liquid diet and monitor HOME MEDS 33 MIN PT EXAM, CHART REVIEW, > 50% of time spent with exam, chart review, pt care coordination Vitals Vitals Vital Signs Date Time Temp Pulse Resp B/P (MAP) Pulse Ox O2 Delivery O2 Flow Rate FiO2 10/11/18 07:59 96 Nasal Cannula 2.0 10/11/18 06:55 98.1 94 24 116/66 (83) 98.1 Physical Exam General: Alert, Oriented X3, Cooperative, mild distress Heart: Regular rate, Normal S1, Normal S2 Lungs: Clear Abdomen: Normal bowel sounds, Soft, No tenderness Extremities: No clubbing, No cyanosis Skin: No rashes Labs LABS Laboratory Tests Test 10/11/18 03:35 Total Bilirubin 3.7 mg/dL (0.2-1.0) Direct Bilirubin 2.9 mg/dL (0.0-0.2) Aspartate Amino Transf (AST/SGOT) 281 U/L (15-37) Alanine Aminotransferase (ALT/SGPT) 298 U/L (16-63) Alkaline Phosphatase 217 U/L (46-116) Total Protein 5.2 g/dL (6.4-8.2) Albumin 2.3 g/dL (3.4-5.0) Lipase 4325 U/L (73-393) Assessment and Plan Assessmemt and Plan Problems Medical Problems: (1) Acute pancreatitis Status: Acute (2) Colitis Status: Acute Comment Review of Relevant I have reviewed the following items idalmis (where applicable) has been applied. Labs Laboratory Tests Test 10/10/18 02:05 10/11/18 03:35 White Blood Count 4.1 x10^3/uL (4.0-11.0) Red Blood Count 4.53 x10^6/uL (4.30-5.70) Hemoglobin 14.8 g/dL (13.0-17.5) Hematocrit 43.7 % (39.0-53.0) Mean Corpuscular Volume 97 fL (79-100) Mean Corpuscular Hemoglobin 33 pg (25-35) Mean Corpuscular Hemoglobin Concent 34 g/dL (31-37) Red Cell Distribution Width 13.3 % (11.5-14.5) Platelet Count 208 x10^3/uL (140-400) Neutrophils (%) (Auto) 93 % (31-73) Lymphocytes (%) (Auto) 4 % (24-48) Monocytes (%) (Auto) 3 % (0-9) Eosinophils (%) (Auto) 0 % (0-3) Basophils (%) (Auto) 0 % (0-3) Neutrophils # (Auto) 3.8 x10^3uL (1.8-7.7) Lymphocytes # (Auto) 0.2 x10^3/uL (1.0-4.8) Monocytes # (Auto) 0.1 x10^3/uL (0.0-1.1) Eosinophils # (Auto) 0.0 x10^3/uL (0.0-0.7) Basophils # (Auto) 0.0 x10^3/uL (0.0-0.2) Segmented Neutrophils % 70 % (35-66) Band Neutrophils % 16 % (0-9) Lymphocytes % 12 % (24-48) Monocytes % 2 % (0-10) Platelet Estimate Adequate (ADEQUATE) Prothrombin Time 13.1 SEC (11.7-14.0) Prothromb Time International Ratio 1.0 (0.8-1.1) Sodium Level 142 mmol/L (136-145) Potassium Level 4.0 mmol/L (3.5-5.1) Chloride Level 103 mmol/L (98-107) Carbon Dioxide Level 23 mmol/L (21-32) Anion Gap 16 (6-14) Blood Urea Nitrogen 20 mg/dL (8-26) Creatinine 0.8 mg/dL (0.7-1.3) Estimated GFR (Cockcroft-Gault) 94.5 BUN/Creatinine Ratio 25 (6-20) Glucose Level 158 mg/dL (70-99) Calcium Level 8.7 mg/dL (8.5-10.1) Total Bilirubin 1.2 mg/dL (0.2-1.0) 3.7 mg/dL (0.2-1.0) Aspartate Amino Transf (AST/SGOT) 523 U/L (15-37) 281 U/L (15-37) Alanine Aminotransferase (ALT/SGPT) 183 U/L (16-63) 298 U/L (16-63) Alkaline Phosphatase 433 U/L (46-116) 217 U/L (46-116) Troponin I Quantitative < 0.017 ng/mL (0.000-0.055) UW-Wmk-X-Type Natriuretic Peptide 289 pg/mL (0-124) Total Protein 6.5 g/dL (6.4-8.2) 5.2 g/dL (6.4-8.2) Albumin 3.5 g/dL (3.4-5.0) 2.3 g/dL (3.4-5.0) Albumin/Globulin Ratio 1.2 (1.0-1.7) Lipase 53 U/L (73-393) 4325 U/L (73-393) Direct Bilirubin 2.9 mg/dL (0.0-0.2) Laboratory Tests Test 10/11/18 03:35 Total Bilirubin 3.7 mg/dL (0.2-1.0) Direct Bilirubin 2.9 mg/dL (0.0-0.2) Aspartate Amino Transf (AST/SGOT) 281 U/L (15-37) Alanine Aminotransferase (ALT/SGPT) 298 U/L (16-63) Alkaline Phosphatase 217 U/L (46-116) Total Protein 5.2 g/dL (6.4-8.2) Albumin 2.3 g/dL (3.4-5.0) Lipase 4325 U/L (73-393) Medications Current Medications Fentanyl Citrate (Fentanyl 2ml Vial) 50 mcg 1X ONCE IV Last administered on at 02:29; Start 10/10/18 at 03:00; Stop 10/10/18 at 03:01; Status DC Ondansetron HCl (Zofran) 4 mg 1X ONCE IV Last administered on 10/10/18at 02:29 ; Start 10/10/18 at 03:00; Stop 10/10/18 at 03:01; Status DC Multi-Ingredient Mouthwash/Gargle (Gi Cocktail) 20 ml 1X ONCE SWSW Last administered on 10/10/18at 02:30; Start 10/10/18 at 03:00; Stop 10/10/18 at 03:01 ; Status DC Sodium Chloride 1,000 ml @ 1,000 mls/hr 1X ONCE IV Last administered on at 03:18; Start 10/10/18 at 03:30; Stop 10/10/18 at 04:29; Status DC Iohexol (Omnipaque 300 Mg/ml) 75 ml 1X ONCE IV Last administered on 10/10/18at 03:49; Start 10/10/18 at 04:00; Stop 10/10/18 at 04:01; Status DC Info (CONTRAST GIVEN -- Rx MONITORING) 1 each PRN DAILY PRN MC SEE COMMENTS; Start 10/10/18 at 03:30; Stop 10/12/18 at 03:29 Ondansetron HCl (Zofran) 4 mg PRN Q8HRS PRN IV NAUSEA/VOMITING 1ST CHOICE; Start 10/10/18 at 04:30; Stop 10/11/18 at 04:29; Status DC Morphine Sulfate (Morphine Sulfate) 4 mg PRN Q2HR PRN IV SEVERE PAIN Last administered on 10/10/18at 21:04; Start 10/10/18 at 04:30; Stop 10/11/18 at 04:29 ; Status DC Sodium Chloride 1,000 ml @ 125 mls/hr Q8H IV Last administered on 10/10/18at 12 :00; Start 10/10/18 at 05:00; Stop 10/11/18 at 04:59; Status DC Pantoprazole Sodium (PROTONIX VIAL for IV PUSH) 40 mg DAILYAC IVP Last administered on 10/10/18at 12:00; Start 10/10/18 at 11:30; Stop 10/10/18 at 14:42 ; Status DC Alprazolam (Xanax) 0.5 mg PRN DAILY PRN PO ANXIETY / AGITATION Last administered on 10/10/18at 21:04; Start 10/10/18 at 13:45 Aspirin (Ecotrin) 81 mg DAILY08 PO Last administered on 4/15/19at 09:00; Start 10/10/18 at 15:00 Ergocalciferol (Vitamin D2) 50,000 unit WEEKLY PO Last administered on 08:59; Start 10/11/18 at 09:00 Tamsulosin HCl (Flomax) 0.8 mg DAILY PO Last administered on 10/11/18 09:00; Start 10/10/18 at 15:00 Budesonide (Pulmicort) 0.5 mg RTBID NEB Last administered on 10/11/18 07:58; Start 10/10/18 at 20:00 Levothyroxine Sodium (Synthroid) 50 mcg DAILY06 PO Last administered on 09:00; Start 10/10/18 at 15:00 Atorvastatin Calcium (Lipitor) 5 mg QHS PO Last administered on 10/10/18 21:03 ; Start 10/10/18 at 21:00 Multivitamins (Thera M Plus) 1 tab DAILY PO Last administered on 10/11/18 09: 00; Start 10/10/18 at 15:00 Pantoprazole Sodium (Protonix) 40 mg DAILYAC PO Last administered on 10/11/18 09:00; Start 10/11/18 at 07:30 Paroxetine HCl (Paxil) 40 mg DAILY PO Last administered on 10/11/18 09:00; Start 10/10/18 at 15:00 Enoxaparin Sodium (Lovenox 40mg Syringe) 40 mg Q24H SQ Last administered on 16:22; Start 10/10/18 at 15:00 Sodium Chloride 1,000 ml @ 1,000 mls/hr 1X ONCE IV Last administered on 16:30; Start 10/10/18 at 16:30; Stop 10/10/18 at 17:29; Status DC Active Scripts Active Reported Flovent 44MCG Hfa (Fluticasone Propionate) 10.6 Gm Aer.w.adap 2 Puff IH BID PRN Alprazolam 0.5 Mg Tablet 1 Tab PO DAILY PRN Omeprazole 40 Mg Capsule.dr 1 Cap PO HS Odor Free Garlic (Garlic) 100 Mg Tablet 100 Mg PO HS Urinozinc Prostate Formula Cap (Multivits-Min/Hrb Cb121) 1 Each Capsule 2 Each PO DAILY Flomax (Tamsulosin Hcl) 0.4 Mg Cap.er.24h 2 Cap PO DAILY Paroxetine Hcl 40 Mg Tablet 1 Tab PO DAILY Meloxicam 7.5 Mg Tablet 1 Tab PO DAILY Lovastatin 20 Mg Tablet 1 Tab PO DAILY Levothyroxine Sodium 50 Mcg Tablet 1 Tab PO DAILY Vitamin D2 (Ergocalciferol (Vitamin D2)) 50,000 Unit Capsule 1 Cap PO WEEKLY Aspirin Ec (Aspirin) 81 Mg Tablet.dr 1 Tab PO DAILY Vitals/I & O Vital Sign - Last 24 Hours 10/10/18 10/10/18 10/10/18 10/10/18 11:00 11:05 12:00 12:56 Temp 98.0 98.0 Pulse 104 110 Resp 18 B/P (MAP) 87/51 (63) 90/51 (64) Pulse Ox 91 91 91 O2 Delivery Nasal Cannula Room Air O2 Flow Rate 2.0 2.0 10/10/18 10/10/18 10/10/18 10/10/18 15:00 16:26 19:54 20:10 Temp 97.3 97.3 97.9 97.3 97.3 97.9 Pulse 93 93 90 Resp 18 18 20 B/P (MAP) 84/46 (59) 93/56 (68) 103/61 (75) Pulse Ox 95 95 99 O2 Delivery Nasal Cannula Nasal Cannula Nasal Cannula Nasal Cannula O2 Flow Rate 2.0 2.0 2.0 2.0 10/10/18 10/10/18 10/10/18 10/10/18 21:04 21:34 21:39 22:57 Temp 98.1 98.1 Pulse 96 Resp 22 20 20 B/P (MAP) 115/57 (76) Pulse Ox 96 94 O2 Delivery Nasal Cannula Nasal Cannula Nasal Cannula Nasal Cannula O2 Flow Rate 2.0 2.0 10/11/18 10/11/18 10/11/18 02:27 06:55 07:59 Temp 98.2 98.1 98.2 98.1 Pulse 87 94 Resp 20 24 B/P (MAP) 108/60 (76) 116/66 (83) Pulse Ox 97 95 96 O2 Delivery Nasal Cannula Nasal Cannula Nasal Cannula O2 Flow Rate 2.0 2.0 2.0 Intake and Output 4/14/19 4/14/19 4/15/19 14:59 22:59 06:59 Intake Total 350 ml 100 ml Balance 350 ml 100 ml KUMAR TALLEY MD Oct 11, 2018 09:28
--- NOTE | 2018-10-11 09:57 | PDOC2 ---
BERTA CALDERON FIELD ARTILLERY CANNONEER 10/11/18 0957: CONSULT Date of Consult Date of Consult DATE: 10/11/18 TIME: 09:51 Reason for Consult Reason for Consult: pancreatitis Referring Physician Referring Physician: ER Identification/Chief Complaint Chief Complaint abdominal pain Source Source: Chart review, Patient History of Present Illness Reason for Visit: Acute onset abdominal pain with radiation to chest. Associated nausea and emesis. Denies diarrhea Currently feels better, wants to go home Reports frequent alcohol use(daily 3-4 shots) Past Medical History Cardiovascular: Hyperlipidemia Pulmonary: COPD GI: Constipation, GERD Musculoskeletal: Osteoarthritis Rheumatologic: No pertinent hx ENT: No pertinent hx, Other (CO[facility]LE[facility] IMPLANT [facility]) Past Surgical History Past Surgical History: Cataract Removal, Tonsillectomy Family History Family History: High Cholestrol, Hypertension Social History Quit ALCOHOL: other (THREE TIME A WEEK, 2 SHOTS [place]) Drugs: None Current Problem List Problem List Problems Medical Problems: (1) Acute pancreatitis Status: Acute (2) Colitis Status: Acute Current Medications Current Medications Current Medications Fentanyl Citrate (Fentanyl 2ml Vial) 50 mcg 1X ONCE IV Last administered on at 02:29; Start 10/10/18 at 03:00; Stop 10/10/18 at 03:01; Status DC Ondansetron HCl (Zofran) 4 mg 1X ONCE IV Last administered on 10/10/18at 02:29 ; Start 10/10/18 at 03:00; Stop 10/10/18 at 03:01; Status DC Multi-Ingredient Mouthwash/Gargle (Gi Cocktail) 20 ml 1X ONCE SWSW Last administered on 10/10/18at 02:30; Start 10/10/18 at 03:00; Stop 10/10/18 at 03:01 ; Status DC Sodium Chloride 1,000 ml @ 1,000 mls/hr 1X ONCE IV Last administered on at 03:18; Start 10/10/18 at 03:30; Stop 10/10/18 at 04:29; Status DC Iohexol (Omnipaque 300 Mg/ml) 75 ml 1X ONCE IV Last administered on 10/10/18at 03:49; Start 10/10/18 at 04:00; Stop 10/10/18 at 04:01; Status DC Info (CONTRAST GIVEN -- Rx MONITORING) 1 each PRN DAILY PRN MC SEE COMMENTS; Start 10/10/18 at 03:30; Stop 10/12/18 at 03:29 Ondansetron HCl (Zofran) 4 mg PRN Q8HRS PRN IV NAUSEA/VOMITING 1ST CHOICE; Start 10/10/18 at 04:30; Stop 10/11/18 at 04:29; Status DC Morphine Sulfate (Morphine Sulfate) 4 mg PRN Q2HR PRN IV SEVERE PAIN Last administered on 10/10/18at 21:04; Start 10/10/18 at 04:30; Stop 10/11/18 at 04:29 ; Status DC Sodium Chloride 1,000 ml @ 125 mls/hr Q8H IV Last administered on 10/10/18at 12 :00; Start 10/10/18 at 05:00; Stop 10/11/18 at 04:59; Status DC Pantoprazole Sodium (PROTONIX VIAL for IV PUSH) 40 mg DAILYAC IVP Last administered on 10/10/18 12:00; Start 10/10/18 at 11:30; Stop 10/10/18 at 14:42 ; Status DC Alprazolam (Xanax) 0.5 mg PRN DAILY PRN PO ANXIETY / AGITATION Last administered on 10/10/18 21:04; Start 10/10/18 at 13:45 Aspirin (Ecotrin) 81 mg DAILY08 PO Last administered on 10/11/18 09:00; Start 10/10/18 at 15:00 Ergocalciferol (Vitamin D2) 50,000 unit WEEKLY PO Last administered on 08:59; Start 10/11/18 at 09:00 Tamsulosin HCl (Flomax) 0.8 mg DAILY PO Last administered on 10/11/18 09:00; Start 10/10/18 at 15:00 Budesonide (Pulmicort) 0.5 mg RTBID NEB Last administered on 10/11/18 07:58; Start 10/10/18 at 20:00 Levothyroxine Sodium (Synthroid) 50 mcg DAILY06 PO Last administered on 09:00; Start 10/10/18 at 15:00 Atorvastatin Calcium (Lipitor) 5 mg QHS PO Last administered on 10/10/18at 21:03 ; Start 10/10/18 at 21:00 Multivitamins (Thera M Plus) 1 tab DAILY PO Last administered on 10/11/18at 09: 00; Start 10/10/18 at 15:00 Pantoprazole Sodium (Protonix) 40 mg DAILYAC PO Last administered on 10/11/18at 09:00; Start 10/11/18 at 07:30 Paroxetine HCl (Paxil) 40 mg DAILY PO Last administered on 10/11/18 09:00; Start 10/10/18 at 15:00 Enoxaparin Sodium (Lovenox 40mg Syringe) 40 mg Q24H SQ Last administered on 16:22; Start 10/10/18 at 15:00 Sodium Chloride 1,000 ml @ 1,000 mls/hr 1X ONCE IV Last administered on 16:30; Start 10/10/18 at 16:30; Stop 10/10/18 at 17:29; Status DC Active Scripts Active Reported Flovent 44MCG Hfa (Fluticasone Propionate) 10.6 Gm Aer.w.adap 2 Puff IH BID PRN Alprazolam 0.5 Mg Tablet 1 Tab PO DAILY PRN Omeprazole 40 Mg Capsule.dr 1 Cap PO HS Odor Free Garlic (Garlic) 100 Mg Tablet 100 Mg PO HS Urinozinc Prostate Formula Cap (Multivits-Min/Hrb Cb121) 1 Each Capsule 2 Each PO DAILY Flomax (Tamsulosin Hcl) 0.4 Mg Cap.er.24h 2 Cap PO DAILY Paroxetine Hcl 40 Mg Tablet 1 Tab PO DAILY Meloxicam 7.5 Mg Tablet 1 Tab PO DAILY Lovastatin 20 Mg Tablet 1 Tab PO DAILY Levothyroxine Sodium 50 Mcg Tablet 1 Tab PO DAILY Vitamin D2 (Ergocalciferol (Vitamin D2)) 50,000 Unit Capsule 1 Cap PO WEEKLY Aspirin Ec (Aspirin) 81 Mg Tablet.dr 1 Tab PO DAILY Allergies Allergies: Coded Allergies: bee venom protein (honey bee) (Unverified Allergy, Intermediate, ITCHING, BLOTCHY, 05/28/17) venom-wasp (Unverified Allergy, Intermediate, 05/28/17) ROS General: No: Chills, Other (fevers) PSYCHOLOGICAL ROS: No: Anxiety, Depression Eyes: No Blurry vision, No Double vision HEENT: No: Heacaches, Sore Throat Respiratory: YES: Shortness of breath; No: Cough Cardiovascular: yes Chest Pain; No Palpitations Gastrointestinal: Yes Other (see hpi) Genitourinary: No Dysuria, No Hematuria Musculoskeletal: No Joint Pain, No Muscle Pain Neurological: No Impaired Coord/balance, No Numbness/Tingling Skin: No Pruritus, No Rash Physical Exam General: Alert, Oriented X3, Cooperative, No acute distress HEENT: PERRLA, Mucous membr. moist/pink Lungs: Clear to auscultation, Normal air movement Heart: Regular rate, Normal S1, Normal S2, No murmurs Abdomen: Soft, No tenderness Extremities: No clubbing, No cyanosis Skin: No rashes, No breakdown Neuro: Normal gait, Normal speech Psych/Mental Status: Mental status NL, Mood NL MUSCULOSKELETAL: No deformity, No swelling Vitals VITALS Vital Signs Date Time Temp Pulse Resp B/P (MAP) Pulse Ox O2 Delivery O2 Flow Rate FiO2 10/11/18 07:59 96 Nasal Cannula 2.0 10/11/18 06:55 98.1 94 24 116/66 (83) 98.1 Labs Labs Laboratory Tests Test 10/10/18 02:05 10/11/18 03:35 White Blood Count 4.1 x10^3/uL (4.0-11.0) Red Blood Count 4.53 x10^6/uL (4.30-5.70) Hemoglobin 14.8 g/dL (13.0-17.5) Hematocrit 43.7 % (39.0-53.0) Mean Corpuscular Volume 97 fL (79-100) Mean Corpuscular Hemoglobin 33 pg (25-35) Mean Corpuscular Hemoglobin Concent 34 g/dL (31-37) Red Cell Distribution Width 13.3 % (11.5-14.5) Platelet Count 208 x10^3/uL (140-400) Neutrophils (%) (Auto) 93 % (31-73) Lymphocytes (%) (Auto) 4 % (24-48) Monocytes (%) (Auto) 3 % (0-9) Eosinophils (%) (Auto) 0 % (0-3) Basophils (%) (Auto) 0 % (0-3) Neutrophils # (Auto) 3.8 x10^3uL (1.8-7.7) Lymphocytes # (Auto) 0.2 x10^3/uL (1.0-4.8) Monocytes # (Auto) 0.1 x10^3/uL (0.0-1.1) Eosinophils # (Auto) 0.0 x10^3/uL (0.0-0.7) Basophils # (Auto) 0.0 x10^3/uL (0.0-0.2) Segmented Neutrophils % 70 % (35-66) Band Neutrophils % 16 % (0-9) Lymphocytes % 12 % (24-48) Monocytes % 2 % (0-10) Platelet Estimate Adequate (ADEQUATE) Prothrombin Time 13.1 SEC (11.7-14.0) Prothromb Time International Ratio 1.0 (0.8-1.1) Sodium Level 142 mmol/L (136-145) Potassium Level 4.0 mmol/L (3.5-5.1) Chloride Level 103 mmol/L (98-107) Carbon Dioxide Level 23 mmol/L (21-32) Anion Gap 16 (6-14) Blood Urea Nitrogen 20 mg/dL (8-26) Creatinine 0.8 mg/dL (0.7-1.3) Estimated GFR (Cockcroft-Gault) 94.5 BUN/Creatinine Ratio 25 (6-20) Glucose Level 158 mg/dL (70-99) Calcium Level 8.7 mg/dL (8.5-10.1) Total Bilirubin 1.2 mg/dL (0.2-1.0) 3.7 mg/dL (0.2-1.0) Aspartate Amino Transf (AST/SGOT) 523 U/L (15-37) 281 U/L (15-37) Alanine Aminotransferase (ALT/SGPT) 183 U/L (16-63) 298 U/L (16-63) Alkaline Phosphatase 433 U/L (46-116) 217 U/L (46-116) Troponin I Quantitative < 0.017 ng/mL (0.000-0.055) KZ-Gci-K-Type Natriuretic Peptide 289 pg/mL (0-124) Total Protein 6.5 g/dL (6.4-8.2) 5.2 g/dL (6.4-8.2) Albumin 3.5 g/dL (3.4-5.0) 2.3 g/dL (3.4-5.0) Albumin/Globulin Ratio 1.2 (1.0-1.7) Lipase 53 U/L (73-393) 4325 U/L (73-393) Direct Bilirubin 2.9 mg/dL (0.0-0.2) Hepatitis A IgM Antibody Nonreactive (Nonreactive) Hepatitis B Surface Antigen Nonreactive (Nonreactive) Hepatitis B Core IgM Antibody Nonreactive (Nonreactive) Hepatitis C IgG Antibody Nonreactive (Nonreactive) Laboratory Tests Test 10/11/18 03:35 Total Bilirubin 3.7 mg/dL (0.2-1.0) Direct Bilirubin 2.9 mg/dL (0.0-0.2) Aspartate Amino Transf (AST/SGOT) 281 U/L (15-37) Alanine Aminotransferase (ALT/SGPT) 298 U/L (16-63) Alkaline Phosphatase 217 U/L (46-116) Total Protein 5.2 g/dL (6.4-8.2) Albumin 2.3 g/dL (3.4-5.0) Lipase 4325 U/L (73-393) Hepatitis A IgM Antibody Nonreactive (Nonreactive) Hepatitis B Surface Antigen Nonreactive (Nonreactive) Hepatitis B Core IgM Antibody Nonreactive (Nonreactive) Hepatitis C IgG Antibody Nonreactive (Nonreactive) Assessment/Plan Assessment/Plan pancreatitis-elevated lipase today, no significant pain today noted T bili rising CT concerning for colitis also significant alcohol use GI management no current surgical plans WENDY VARELA MD 10/11/18 1622: CONSULT Assessment/Plan Assessment/Plan pt seen, interviewed and examined for MRCP tomorrow await those results Thanks for consult BERTA CALDERON [employer]ER Oct 11, 2018 09:57 WENDY VARELA MD Oct 11, 2018 16:22
[2018-10-11 10:31] VITALS: BP 105/58
[2018-10-11 11:23] LABS: BASO % 0 % (0-3); EOS % 0 % (0-3); HEMATOCRIT 36.8 % (39.0-53.0); LYMPH # 0.5 x10^3/uL (1.0-4.8); LYMPH % 4 % (24-48); MEAN CORPUSCULAR HEMOGLOBIN 32 pg (25-35); MEAN CORPUSCULAR HGB CONC 33 g/dL (31-37); MEAN CORPUSCULAR VOLUME 99 fL (79-100); MONO # 0.9 x10^3/uL (0.0-1.1); MONO % 7 % (0-9); NEUT # 11.7 x10^3uL (1.8-7.7); NEUT % 89 % (31-73); PLATELET COUNT 143 x10^3/uL (140-400); RED BLOOD COUNT 3.72 x10^6/uL (4.30-5.70); RED CELL DISTRIBUTION WIDTH 14.2 % (11.5-14.5); WHITE BLOOD COUNT 13.1 x10^3/uL (4.0-11.0)
--- NOTE | 2018-10-11 12:11 | PDOC ---
Subjective: Subjective: Abd is sore w/ movement from previous retching. Previously reported abd/chest pain has resolved. Asks to advance diet and go home - says "I'm really hungry" and doesn't want cream of wheat again. Has had three stools - denies diarrhea. Objective: Vital Signs: Vital Signs Date Time Temp Pulse Resp B/P (MAP) Pulse Ox O2 Delivery O2 Flow Rate FiO2 10/11/18 10:31 98.0 74 20 105/58 (74) 97 Nasal Cannula 2.0 98.0 Labs: Laboratory Tests Test 10/11/18 03:35 White Blood Count 13.1 x10^3/uL Red Blood Count 3.72 x10^6/uL Hemoglobin 12.0 g/dL Hematocrit 36.8 % Mean Corpuscular Volume 99 fL Mean Corpuscular Hemoglobin 32 pg Mean Corpuscular Hemoglobin Concent 33 g/dL Red Cell Distribution Width 14.2 % Platelet Count 143 x10^3/uL Neutrophils (%) (Auto) 89 % Lymphocytes (%) (Auto) 4 % Monocytes (%) (Auto) 7 % Eosinophils (%) (Auto) 0 % Basophils (%) (Auto) 0 % Neutrophils # (Auto) 11.7 x10^3uL Lymphocytes # (Auto) 0.5 x10^3/uL Monocytes # (Auto) 0.9 x10^3/uL Eosinophils # (Auto) 0.0 x10^3/uL Basophils # (Auto) 0.0 x10^3/uL Platelet Estimate Pending Total Bilirubin 3.7 mg/dL Direct Bilirubin 2.9 mg/dL Aspartate Amino Transf (AST/SGOT) 281 U/L Alanine Aminotransferase (ALT/SGPT) 298 U/L Alkaline Phosphatase 217 U/L Total Protein 5.2 g/dL Albumin 2.3 g/dL Lipase 4325 U/L Hepatitis A IgM Antibody Nonreactive Hepatitis B Surface Antigen Nonreactive Hepatitis B Core IgM Antibody Nonreactive Hepatitis C IgG Antibody Nonreactive Imaging: CT A/P 10/10 IMPRESSION: 1. Acute pancreatitis. 2. Wall thickening throughout much of the colon suspicious for colitis. 3. The appendix is negative. 4. Pulmonary nodules of the right lung base largest measuring 4 mm. Per Fleischner guidelines in a patient with risk factors for malignancy optional CT follow-up in 12 months would be advised. Otherwise no follow-up is necessary. Abd US IMPRESSION: 1. Sludge noted in the gallbladder with gallbladder wall thickening possible cholecystitis. 2. Liver incompletely evaluated but no focal liver lesion noted. 3. Poor visualization of the pancreas. 4. No right hydronephrosis. PE: GEN: NAD LUNGS: NC HEART: RRR ABD: soft, very mild periumbilical discomfort, BS+ NEURO/PSYCH: A & O 3 A/P: Abdominal soreness Pancreatitis - on CT, now w/ elevated lipase as well, no cholelithiasis, CBD WNL Abnormal LFTs - bili worse, AP better Leukocytosis, normocytic anemia -- Reviewed w/ Propeck - check MRCP. He asks to advance diet. Unclear significance of colonic wall thickening on CT w/o diarrhea, bleeding, etc. ARIANA SARMIENTO Oct 11, 2018 12:11
[2018-10-11 12:49] LABS: % BANDS 8 % (0-9); % LYMPHS 8 % (24-48); % MONOS 2 % (0-10); % SEGS 82 % (35-66); PLT ESTIMATE ADEQUATE (ADEQUATE)
[2018-10-11 14:23] VITALS: BP 109/56
[2018-10-11] MEDS: ENOXAPARIN 40 MG/0.4 ML SYRINGE. SQ SCH (15:26)
--- NOTE | 2018-10-11 15:44 | NUR ---
SW following pt for anticipated dc needs. Chart reviewed and DW RN. Pt lives at home with family. RN reported pt does not need skilled intervention at this time. No discharge recommendations noted at this time. Will continue to evaluate needs.
[2018-10-11 18:55] VITALS: BP 119/71
[2018-10-11] MEDS: ALPRAZolam 0.5 MG TABLET PO PRN (20:42)
[2018-10-11] MEDS: ATORVASTATIN CALCIUM 10 MG TABLET. PO SCH (20:42)
[2018-10-11 23:00] VITALS: BP 116/66
[2018-10-12 03:00] VITALS: BP 135/70
[2018-10-12 04:22] LABS: HEMATOCRIT 36.9 % (39.0-53.0); HEMOGLOBIN 12.2 g/dL (13.0-17.5); RED BLOOD COUNT 3.82 x10^6/uL (4.30-5.70); RED CELL DISTRIBUTION WIDTH 13.3 % (11.5-14.5); WHITE BLOOD COUNT 11.2 x10^3/uL (4.0-11.0)
[2018-10-12 04:29] LABS: ALBUMIN 2.3 g/dL (3.4-5.0); ALBUMIN/GLOBULIN RATIO 0.7 (1.0-1.7); CALCIUM 8.1 mg/dL (8.5-10.1); CREATININE 0.9 mg/dL (0.7-1.3); GFR 82.5; POTASSIUM 3.4 mmol/L (3.5-5.1); TOTAL BILIRUBIN 4.3 mg/dL (0.2-1.0); TOTAL PROTEIN 5.5 g/dL (6.4-8.2)
[2018-10-12 04:32] LABS: CHOLESTEROL/HDL RATIO 2.9
[2018-10-12] MEDS: LEVOTHYROXINE 50 MCG TABLET PO SCH (05:34)
[2018-10-12 07:00] VITALS: BP 103/59
[2018-10-12] MEDS: BUDESONIDE 0.5 MG/2 ML NEBU. NEB SCH ×2 (07:16→19:27)
--- NOTE | 2018-10-12 09:44 | PDOC ---
BERTA CALDERON CONSULTING SOLUTION MANAGER 10/12/18 0944: SURGICAL PROGRESS NOTE Subjective no pain no n/v awaiting MRCP Vital Signs Vital Signs Date Time Temp Pulse Resp B/P (MAP) Pulse Ox O2 Delivery O2 Flow Rate FiO2 10/12/18 07:16 92 Room Air 10/12/18 07:00 97.9 82 20 103/59 (74) 2.0 97.9 I&O Intake and Output 10/12/18 06:59 Intake Total 1780 ml Balance 1780 ml Intake Oral 1780 ml # Voids 6 # Bowel Movements 2 General: Alert, Oriented X3, Cooperative, No acute distress Abdomen: Soft, No tenderness Labs Laboratory Tests Test 10/11/18 03:35 10/11/18 19:45 10/12/18 03:50 White Blood Count 13.1 x10^3/uL (4.0-11.0) 11.2 x10^3/uL (4.0-11.0) Red Blood Count 3.72 x10^6/uL (4.30-5.70) 3.82 x10^6/uL (4.30-5.70) Hemoglobin 12.0 g/dL (13.0-17.5) 12.2 g/dL (13.0-17.5) Hematocrit 36.8 % (39.0-53.0) 36.9 % (39.0-53.0) Mean Corpuscular Volume 99 fL (79-100) 97 fL (79-100) Mean Corpuscular Hemoglobin 32 pg (25-35) 32 pg (25-35) Mean Corpuscular Hemoglobin Concent 33 g/dL (31-37) 33 g/dL (31-37) Red Cell Distribution Width 14.2 % (11.5-14.5) 13.3 % (11.5-14.5) Platelet Count 143 x10^3/uL (140-400) 141 x10^3/uL (140-400) Neutrophils (%) (Auto) 89 % (31-73) Lymphocytes (%) (Auto) 4 % (24-48) Monocytes (%) (Auto) 7 % (0-9) Eosinophils (%) (Auto) 0 % (0-3) Basophils (%) (Auto) 0 % (0-3) Neutrophils # (Auto) 11.7 x10^3uL (1.8-7.7) Lymphocytes # (Auto) 0.5 x10^3/uL (1.0-4.8) Monocytes # (Auto) 0.9 x10^3/uL (0.0-1.1) Eosinophils # (Auto) 0.0 x10^3/uL (0.0-0.7) Basophils # (Auto) 0.0 x10^3/uL (0.0-0.2) Segmented Neutrophils % 82 % (35-66) Band Neutrophils % 8 % (0-9) Lymphocytes % 8 % (24-48) Monocytes % 2 % (0-10) Platelet Estimate Adequate (ADEQUATE) Total Bilirubin 3.7 mg/dL (0.2-1.0) 4.3 mg/dL (0.2-1.0) Direct Bilirubin 2.9 mg/dL (0.0-0.2) Aspartate Amino Transf (AST/SGOT) 281 U/L (15-37) 109 U/L (15-37) Alanine Aminotransferase (ALT/SGPT) 298 U/L (16-63) 196 U/L (16-63) Alkaline Phosphatase 217 U/L (46-116) 200 U/L (46-116) Total Protein 5.2 g/dL (6.4-8.2) 5.5 g/dL (6.4-8.2) Albumin 2.3 g/dL (3.4-5.0) 2.3 g/dL (3.4-5.0) Lipase 4325 U/L (73-393) Hepatitis A IgM Antibody Nonreactive (Nonreactive) Hepatitis B Surface Antigen Nonreactive (Nonreactive) Hepatitis B Core IgM Antibody Nonreactive (Nonreactive) Hepatitis C IgG Antibody Nonreactive (Nonreactive) Heparin Anti-Xa Act, Unfractionated 0.18 IU/mL (0.30-0.70) Sodium Level 139 mmol/L (136-145) Potassium Level 3.4 mmol/L (3.5-5.1) Chloride Level 104 mmol/L (98-107) Carbon Dioxide Level 23 mmol/L (21-32) Anion Gap 12 (6-14) Blood Urea Nitrogen 14 mg/dL (8-26) Creatinine 0.9 mg/dL (0.7-1.3) Estimated GFR (Cockcroft-Gault) 82.5 BUN/Creatinine Ratio 16 (6-20) Glucose Level 87 mg/dL (70-99) Calcium Level 8.1 mg/dL (8.5-10.1) Albumin/Globulin Ratio 0.7 (1.0-1.7) Triglycerides Level 61 mg/dL (0-150) Cholesterol Level 106 mg/dL (0-200) LDL Cholesterol, Calculated 57 mg/dL (0-100) VLDL Cholesterol, Calculated 12 mg/dL (0-40) Non-HDL Cholesterol Calculated 69 mg/dL (0-129) HDL Cholesterol 37 mg/dL (40-60) Cholesterol/HDL Ratio 2.9 Laboratory Tests Test 10/11/18 19:45 10/12/18 03:50 Heparin Anti-Xa Act, Unfractionated 0.18 IU/mL (0.30-0.70) White Blood Count 11.2 x10^3/uL (4.0-11.0) Red Blood Count 3.82 x10^6/uL (4.30-5.70) Hemoglobin 12.2 g/dL (13.0-17.5) Hematocrit 36.9 % (39.0-53.0) Mean Corpuscular Volume 97 fL (79-100) Mean Corpuscular Hemoglobin 32 pg (25-35) Mean Corpuscular Hemoglobin Concent 33 g/dL (31-37) Red Cell Distribution Width 13.3 % (11.5-14.5) Platelet Count 141 x10^3/uL (140-400) Sodium Level 139 mmol/L (136-145) Potassium Level 3.4 mmol/L (3.5-5.1) Chloride Level 104 mmol/L (98-107) Carbon Dioxide Level 23 mmol/L (21-32) Anion Gap 12 (6-14) Blood Urea Nitrogen 14 mg/dL (8-26) Creatinine 0.9 mg/dL (0.7-1.3) Estimated GFR (Cockcroft-Gault) 82.5 BUN/Creatinine Ratio 16 (6-20) Glucose Level 87 mg/dL (70-99) Calcium Level 8.1 mg/dL (8.5-10.1) Total Bilirubin 4.3 mg/dL (0.2-1.0) Aspartate Amino Transf (AST/SGOT) 109 U/L (15-37) Alanine Aminotransferase (ALT/SGPT) 196 U/L (16-63) Alkaline Phosphatase 200 U/L (46-116) Total Protein 5.5 g/dL (6.4-8.2) Albumin 2.3 g/dL (3.4-5.0) Albumin/Globulin Ratio 0.7 (1.0-1.7) Triglycerides Level 61 mg/dL (0-150) Cholesterol Level 106 mg/dL (0-200) LDL Cholesterol, Calculated 57 mg/dL (0-100) VLDL Cholesterol, Calculated 12 mg/dL (0-40) Non-HDL Cholesterol Calculated 69 mg/dL (0-129) HDL Cholesterol 37 mg/dL (40-60) Cholesterol/HDL Ratio 2.9 Problem List Problems Medical Problems: (1) Acute pancreatitis Status: Acute (2) Colitis Status: Acute Assessment/Plan await MRCP WENDY VARELA MD 10/12/18 1335: SURGICAL PROGRESS NOTE Assessment/Plan pt seen awaiting equipment to facilitate MRCP BERTA CALDERON CONSULTING SOLUTION MANAGER Oct 12, 2018 09:44 WENDY VARELA MD Oct 12, 2018 13:35
[2018-10-12 10:44] VITALS: BP 110/64
--- NOTE | 2018-10-12 10:45 | PDOC ---
PROGRESS NOTES History of Present Illness History of Present Illness Assessment/Plan Assessment/Plan IMPRESSION: 1. Acute pancreatitis.POSSIBLE PASSED STONE 2. Wall thickening throughout much of the colon suspicious for colitis. 3. The appendix is negative. 4. Pulmonary nodules of the right lung base largest measuring 4 mm. Per Fleischner guidelines in a patient with risk factors for malignancy optional CT follow-up in 12 months would be advised. 5. Sludge noted in the gallbladder with gallbladder wall thickening possible cholecystitis. 6.GERD 7.BPH 8.HYPERLIPIDEMIA 9.transaminitis, IMPROVING 10. ALCOHOL ABUSE plan gi following gen surgery consult dvt prophylaxis iv fluid support iv protonix trial of liquid diet and monitor ALCOHOL WITHDRAWAL PRECAUTIONS HOME MEDS MRCP postponed - has cochlear implants 10/12 36 MIN PT EXAM, CHART REVIEW, > 50% of time spent with exam, chart review, pt care coordination Vitals Vitals Vital Signs Date Time Temp Pulse Resp B/P (MAP) Pulse Ox O2 Delivery O2 Flow Rate FiO2 10/12/18 07:16 92 Room Air 10/12/18 07:00 97.9 82 20 103/59 (74) 2.0 97.9 Physical Exam General: Alert, Oriented X3, Cooperative, No acute distress Heart: Regular rate, Normal S1, Normal S2, No murmurs Lungs: Clear Abdomen: Soft, No tenderness Extremities: No clubbing, No cyanosis Skin: No rashes, No breakdown Labs LABS Laboratory Tests Test 10/11/18 19:45 10/12/18 03:50 Heparin Anti-Xa Act, Unfractionated 0.18 IU/mL (0.30-0.70) White Blood Count 11.2 x10^3/uL (4.0-11.0) Red Blood Count 3.82 x10^6/uL (4.30-5.70) Hemoglobin 12.2 g/dL (13.0-17.5) Hematocrit 36.9 % (39.0-53.0) Mean Corpuscular Volume 97 fL (79-100) Mean Corpuscular Hemoglobin 32 pg (25-35) Mean Corpuscular Hemoglobin Concent 33 g/dL (31-37) Red Cell Distribution Width 13.3 % (11.5-14.5) Platelet Count 141 x10^3/uL (140-400) Sodium Level 139 mmol/L (136-145) Potassium Level 3.4 mmol/L (3.5-5.1) Chloride Level 104 mmol/L (98-107) Carbon Dioxide Level 23 mmol/L (21-32) Anion Gap 12 (6-14) Blood Urea Nitrogen 14 mg/dL (8-26) Creatinine 0.9 mg/dL (0.7-1.3) Estimated GFR (Cockcroft-Gault) 82.5 BUN/Creatinine Ratio 16 (6-20) Glucose Level 87 mg/dL (70-99) Calcium Level 8.1 mg/dL (8.5-10.1) Total Bilirubin 4.3 mg/dL (0.2-1.0) Aspartate Amino Transf (AST/SGOT) 109 U/L (15-37) Alanine Aminotransferase (ALT/SGPT) 196 U/L (16-63) Alkaline Phosphatase 200 U/L (46-116) Total Protein 5.5 g/dL (6.4-8.2) Albumin 2.3 g/dL (3.4-5.0) Albumin/Globulin Ratio 0.7 (1.0-1.7) Triglycerides Level 61 mg/dL (0-150) Cholesterol Level 106 mg/dL (0-200) LDL Cholesterol, Calculated 57 mg/dL (0-100) VLDL Cholesterol, Calculated 12 mg/dL (0-40) Non-HDL Cholesterol Calculated 69 mg/dL (0-129) HDL Cholesterol 37 mg/dL (40-60) Cholesterol/HDL Ratio 2.9 Assessment and Plan Assessmemt and Plan Problems Medical Problems: (1) Acute pancreatitis Status: Acute (2) Colitis Status: Acute Comment Review of Relevant I have reviewed the following items idalmis (where applicable) has been applied. Labs Laboratory Tests Test 10/11/18 03:35 10/11/18 19:45 10/12/18 03:50 White Blood Count 13.1 x10^3/uL (4.0-11.0) 11.2 x10^3/uL (4.0-11.0) Red Blood Count 3.72 x10^6/uL (4.30-5.70) 3.82 x10^6/uL (4.30-5.70) Hemoglobin 12.0 g/dL (13.0-17.5) 12.2 g/dL (13.0-17.5) Hematocrit 36.8 % (39.0-53.0) 36.9 % (39.0-53.0) Mean Corpuscular Volume 99 fL (79-100) 97 fL (79-100) Mean Corpuscular Hemoglobin 32 pg (25-35) 32 pg (25-35) Mean Corpuscular Hemoglobin Concent 33 g/dL (31-37) 33 g/dL (31-37) Red Cell Distribution Width 14.2 % (11.5-14.5) 13.3 % (11.5-14.5) Platelet Count 143 x10^3/uL (140-400) 141 x10^3/uL (140-400) Neutrophils (%) (Auto) 89 % (31-73) Lymphocytes (%) (Auto) 4 % (24-48) Monocytes (%) (Auto) 7 % (0-9) Eosinophils (%) (Auto) 0 % (0-3) Basophils (%) (Auto) 0 % (0-3) Neutrophils # (Auto) 11.7 x10^3uL (1.8-7.7) Lymphocytes # (Auto) 0.5 x10^3/uL (1.0-4.8) Monocytes # (Auto) 0.9 x10^3/uL (0.0-1.1) Eosinophils # (Auto) 0.0 x10^3/uL (0.0-0.7) Basophils # (Auto) 0.0 x10^3/uL (0.0-0.2) Segmented Neutrophils % 82 % (35-66) Band Neutrophils % 8 % (0-9) Lymphocytes % 8 % (24-48) Monocytes % 2 % (0-10) Platelet Estimate Adequate (ADEQUATE) Total Bilirubin 3.7 mg/dL (0.2-1.0) 4.3 mg/dL (0.2-1.0) Direct Bilirubin 2.9 mg/dL (0.0-0.2) Aspartate Amino Transf (AST/SGOT) 281 U/L (15-37) 109 U/L (15-37) Alanine Aminotransferase (ALT/SGPT) 298 U/L (16-63) 196 U/L (16-63) Alkaline Phosphatase 217 U/L (46-116) 200 U/L (46-116) Total Protein 5.2 g/dL (6.4-8.2) 5.5 g/dL (6.4-8.2) Albumin 2.3 g/dL (3.4-5.0) 2.3 g/dL (3.4-5.0) Lipase 4325 U/L (73-393) Hepatitis A IgM Antibody Nonreactive (Nonreactive) Hepatitis B Surface Antigen Nonreactive (Nonreactive) Hepatitis B Core IgM Antibody Nonreactive (Nonreactive) Hepatitis C IgG Antibody Nonreactive (Nonreactive) Heparin Anti-Xa Act, Unfractionated 0.18 IU/mL (0.30-0.70) Sodium Level 139 mmol/L (136-145) Potassium Level 3.4 mmol/L (3.5-5.1) Chloride Level 104 mmol/L (98-107) Carbon Dioxide Level 23 mmol/L (21-32) Anion Gap 12 (6-14) Blood Urea Nitrogen 14 mg/dL (8-26) Creatinine 0.9 mg/dL (0.7-1.3) Estimated GFR (Cockcroft-Gault) 82.5 BUN/Creatinine Ratio 16 (6-20) Glucose Level 87 mg/dL (70-99) Calcium Level 8.1 mg/dL (8.5-10.1) Albumin/Globulin Ratio 0.7 (1.0-1.7) Triglycerides Level 61 mg/dL (0-150) Cholesterol Level 106 mg/dL (0-200) LDL Cholesterol, Calculated 57 mg/dL (0-100) VLDL Cholesterol, Calculated 12 mg/dL (0-40) Non-HDL Cholesterol Calculated 69 mg/dL (0-129) HDL Cholesterol 37 mg/dL (40-60) Cholesterol/HDL Ratio 2.9 Laboratory Tests Test 10/11/18 19:45 10/12/18 03:50 Heparin Anti-Xa Act, Unfractionated 0.18 IU/mL (0.30-0.70) White Blood Count 11.2 x10^3/uL (4.0-11.0) Red Blood Count 3.82 x10^6/uL (4.30-5.70) Hemoglobin 12.2 g/dL (13.0-17.5) Hematocrit 36.9 % (39.0-53.0) Mean Corpuscular Volume 97 fL (79-100) Mean Corpuscular Hemoglobin 32 pg (25-35) Mean Corpuscular Hemoglobin Concent 33 g/dL (31-37) Red Cell Distribution Width 13.3 % (11.5-14.5) Platelet Count 141 x10^3/uL (140-400) Sodium Level 139 mmol/L (136-145) Potassium Level 3.4 mmol/L (3.5-5.1) Chloride Level 104 mmol/L (98-107) Carbon Dioxide Level 23 mmol/L (21-32) Anion Gap 12 (6-14) Blood Urea Nitrogen 14 mg/dL (8-26) Creatinine 0.9 mg/dL (0.7-1.3) Estimated GFR (Cockcroft-Gault) 82.5 BUN/Creatinine Ratio 16 (6-20) Glucose Level 87 mg/dL (70-99) Calcium Level 8.1 mg/dL (8.5-10.1) Total Bilirubin 4.3 mg/dL (0.2-1.0) Aspartate Amino Transf (AST/SGOT) 109 U/L (15-37) Alanine Aminotransferase (ALT/SGPT) 196 U/L (16-63) Alkaline Phosphatase 200 U/L (46-116) Total Protein 5.5 g/dL (6.4-8.2) Albumin 2.3 g/dL (3.4-5.0) Albumin/Globulin Ratio 0.7 (1.0-1.7) Triglycerides Level 61 mg/dL (0-150) Cholesterol Level 106 mg/dL (0-200) LDL Cholesterol, Calculated 57 mg/dL (0-100) VLDL Cholesterol, Calculated 12 mg/dL (0-40) Non-HDL Cholesterol Calculated 69 mg/dL (0-129) HDL Cholesterol 37 mg/dL (40-60) Cholesterol/HDL Ratio 2.9 Medications Current Medications Fentanyl Citrate (Fentanyl 2ml Vial) 50 mcg 1X ONCE IV Last administered on at 02:29; Start 10/10/18 at 03:00; Stop 10/10/18 at 03:01; Status DC Ondansetron HCl (Zofran) 4 mg 1X ONCE IV Last administered on 10/10/18at 02:29 ; Start 10/10/18 at 03:00; Stop 10/10/18 at 03:01; Status DC Multi-Ingredient Mouthwash/Gargle (Gi Cocktail) 20 ml 1X ONCE SWSW Last administered on 10/10/18at 02:30; Start 10/10/18 at 03:00; Stop 10/10/18 at 03:01 ; Status DC Sodium Chloride 1,000 ml @ 1,000 mls/hr 1X ONCE IV Last administered on at 03:18; Start 10/10/18 at 03:30; Stop 10/10/18 at 04:29; Status DC Iohexol (Omnipaque 300 Mg/ml) 75 ml 1X ONCE IV Last administered on 10/10/18at 03:49; Start 10/10/18 at 04:00; Stop 10/10/18 at 04:01; Status DC Info (CONTRAST GIVEN -- Rx MONITORING) 1 each PRN DAILY PRN MC SEE COMMENTS; Start 10/10/18 at 03:30; Stop 10/12/18 at 03:29; Status DC Ondansetron HCl (Zofran) 4 mg PRN Q8HRS PRN IV NAUSEA/VOMITING 1ST CHOICE; Start 10/10/18 at 04:30; Stop 10/11/18 at 04:29; Status DC Morphine Sulfate (Morphine Sulfate) 4 mg PRN Q2HR PRN IV SEVERE PAIN Last administered on 10/10/18at 21:04; Start 10/10/18 at 04:30; Stop 10/11/18 at 04:29 ; Status DC Sodium Chloride 1,000 ml @ 125 mls/hr Q8H IV Last administered on 10/10/18at 12 :00; Start 10/10/18 at 05:00; Stop 10/11/18 at 04:59; Status DC Pantoprazole Sodium (PROTONIX VIAL for IV PUSH) 40 mg DAILYAC IVP Last administered on 10/10/18at 12:00; Start 10/10/18 at 11:30; Stop 10/10/18 at 14:42 ; Status DC Alprazolam (Xanax) 0.5 mg PRN DAILY PRN PO ANXIETY / AGITATION Last administered on 10/11/18at 20:42; Start 10/10/18 at 13:45 Aspirin (Ecotrin) 81 mg DAILY08 PO Last administered on 10/11/18at 09:00; Start 10/10/18 at 15:00 Ergocalciferol (Vitamin D2) 50,000 unit WEEKLY PO Last administered on 08:59; Start 10/11/18 at 09:00 Tamsulosin HCl (Flomax) 0.8 mg DAILY PO Last administered on 10/11/18 09:00; Start 10/10/18 at 15:00 Budesonide (Pulmicort) 0.5 mg RTBID NEB Last administered on 10/12/18 07:16; Start 10/10/18 at 20:00 Levothyroxine Sodium (Synthroid) 50 mcg DAILY06 PO Last administered on 05:34; Start 10/10/18 at 15:00 Atorvastatin Calcium (Lipitor) 5 mg QHS PO Last administered on 10/11/18 20:42 ; Start 10/10/18 at 21:00 Multivitamins (Thera M Plus) 1 tab DAILY PO Last administered on 10/11/18 09: 00; Start 10/10/18 at 15:00 Pantoprazole Sodium (Protonix) 40 mg DAILYAC PO Last administered on 10/11/18 09:00; Start 10/11/18 at 07:30 Paroxetine HCl (Paxil) 40 mg DAILY PO Last administered on 10/11/18 09:00; Start 10/10/18 at 15:00 Enoxaparin Sodium (Lovenox 40mg Syringe) 40 mg Q24H SQ Last administered on 15:26; Start 10/10/18 at 15:00 Sodium Chloride 1,000 ml @ 1,000 mls/hr 1X ONCE IV Last administered on 16:30; Start 10/10/18 at 16:30; Stop 10/10/18 at 17:29; Status DC Active Scripts Active Reported Flovent 44MCG Hfa (Fluticasone Propionate) 10.6 Gm Aer.w.adap 2 Puff IH BID PRN Alprazolam 0.5 Mg Tablet 1 Tab PO DAILY PRN Omeprazole 40 Mg Capsule.dr 1 Cap PO HS Odor Free Garlic (Garlic) 100 Mg Tablet 100 Mg PO HS Urinozinc Prostate Formula Cap (Multivits-Min/Hrb Cb121) 1 Each Capsule 2 Each PO DAILY Flomax (Tamsulosin Hcl) 0.4 Mg Cap.er.24h 2 Cap PO DAILY Paroxetine Hcl 40 Mg Tablet 1 Tab PO DAILY Meloxicam 7.5 Mg Tablet 1 Tab PO DAILY Lovastatin 20 Mg Tablet 1 Tab PO DAILY Levothyroxine Sodium 50 Mcg Tablet 1 Tab PO DAILY Vitamin D2 (Ergocalciferol (Vitamin D2)) 50,000 Unit Capsule 1 Cap PO WEEKLY Aspirin Ec (Aspirin) 81 Mg Tablet. 1 Tab PO DAILY Vitals/I & O Vital Sign - Last 24 Hours 10/11/18 10/11/18 10/11/18 10/11/18 14:23 18:55 19:36 20:00 Temp 98.4 98.1 98.4 98.1 Pulse 87 101 Resp 22 18 B/P (MAP) 109/56 (73) 119/71 (87) Pulse Ox 96 93 94 O2 Delivery Nasal Cannula Nasal Cannula Room Air Room Air O2 Flow Rate 2.0 2.0 10/11/18 10/12/18 10/12/18 10/12/18 23:00 03:00 07:00 07:16 Temp 98.3 98.1 97.9 98.3 98.1 97.9 Pulse 90 88 82 Resp 20 20 20 B/P (MAP) 116/66 (83) 135/70 (91) 103/59 (74) Pulse Ox 92 92 93 92 O2 Delivery Nasal Cannula Nasal Cannula Nasal Cannula Room Air O2 Flow Rate 2.0 2.0 2.0 Intake and Output 10/11/18 10/11/18 10/12/18 14:59 22:59 06:59 Intake Total 360 ml 1020 ml 400 ml Balance 360 ml 1020 ml 400 ml KUMAR TALLEY MD Oct 12, 2018 10:45
--- NOTE | 2018-10-12 12:17 | PDOC ---
Subjective: Subjective: Frustrated - MRCP postponed - has cochlear implants, covering to be shipped overnight in hopes to proceed w/ MRCP tomorrow. Denies abd pain and n/v. Wants to go home and do MRCP as an outpt. Frustrated that he was NPO this morning. Has had diarrhea - frequent stools since 3:30 a.m. - slowing now. Was constipated prior to admission. and daughter would like him to stay - daughter concerned he looks yellow. Objective: Vital Signs: Vital Signs Date Time Temp Pulse Resp B/P (MAP) Pulse Ox O2 Delivery O2 Flow Rate FiO2 10/12/18 10:44 97.8 80 20 110/64 (79) 93 Nasal Cannula 2.0 97.8 Labs: Laboratory Tests Test 10/11/18 19:45 10/12/18 03:50 Heparin Anti-Xa Act, Unfractionated 0.18 IU/mL White Blood Count 11.2 x10^3/uL Red Blood Count 3.82 x10^6/uL Hemoglobin 12.2 g/dL Hematocrit 36.9 % Mean Corpuscular Volume 97 fL Mean Corpuscular Hemoglobin 32 pg Mean Corpuscular Hemoglobin Concent 33 g/dL Red Cell Distribution Width 13.3 % Platelet Count 141 x10^3/uL Sodium Level 139 mmol/L Potassium Level 3.4 mmol/L Chloride Level 104 mmol/L Carbon Dioxide Level 23 mmol/L Anion Gap 12 Blood Urea Nitrogen 14 mg/dL Creatinine 0.9 mg/dL Estimated GFR (Cockcroft-Gault) 82.5 BUN/Creatinine Ratio 16 Glucose Level 87 mg/dL Calcium Level 8.1 mg/dL Total Bilirubin 4.3 mg/dL Aspartate Amino Transf (AST/SGOT) 109 U/L Alanine Aminotransferase (ALT/SGPT) 196 U/L Alkaline Phosphatase 200 U/L Total Protein 5.5 g/dL Albumin 2.3 g/dL Albumin/Globulin Ratio 0.7 Triglycerides Level 61 mg/dL Cholesterol Level 106 mg/dL LDL Cholesterol, Calculated 57 mg/dL VLDL Cholesterol, Calculated 12 mg/dL Non-HDL Cholesterol Calculated 69 mg/dL HDL Cholesterol 37 mg/dL Cholesterol/HDL Ratio 2.9 PE: GEN: NAD LUNGS: CTAB HEART: RRR ABD: NABS, S/ND/NT NEURO/PSYCH: A & O 3, frustrated A/P: Pancreatitis - on CT, now w/ elevated lipase as well, no cholelithiasis, CBD WNL , some h/o alcohol Abnormal LFTs - bili worse (3.7 to 4.3) but AST, ALT, and Alk Phos improved Diarrhea Leukocytosis - better Normocytic anemia - stable Cochlear implants -- Ideally would remain inpt for MRCP if can be done w/ cochlear implants - I returned to his room to discuss and also talked w/ RN. Consider stool studies if indicated. ARIANA SARMIENTO Oct 12, 2018 12:17
[2018-10-12] MEDS: MULTIVITAMIN with MINERAL TABLET. PO SCH (13:13)
[2018-10-12] MEDS: ASPIRIN ENTERIC COATED 81 MG TABLET.DR. PO SCH (13:14)
[2018-10-12] MEDS: PANTOPRAZOLE 40 MG TABLET.DR. PO SCH (13:14)
[2018-10-12] MEDS: TAMSULOSIN 0.4 MG CAP.ER.24H. PO SCH (13:14)
[2018-10-12] MEDS: PARoxetine 20 MG TABLET PO SCH (13:15)
[2018-10-12] MEDS: LORazepam 1 MG TABLET PO SCH ×2 (13:18→20:30)
[2018-10-12 14:46] VITALS: BP 119/66
[2018-10-12] MEDS: ENOXAPARIN 40 MG/0.4 ML SYRINGE. SQ SCH (15:33)
[2018-10-12 19:00] VITALS: BP 120/69
[2018-10-12 20:21] LABS: BILIRUBIN,URINE LARGE (NEG); CLARITY,URINE CLEAR; COLOR,URINE ORANGE; NITRITE,URINE NEGATIVE (NEG); PH,URINE 6.5; PROTEIN,URINE 30 mg/dL (NEG-TRACE); UROBILINOGEN,URINE 0.2 mg/dL (0.2 mg/dL)
[2018-10-12 20:29] LABS: BACTERIA,URINE 0 /HPF (0-FEW); RBC,URINE OCC /HPF (0-2); SQUAMOUS EPITHELIAL CELL,UR FEW /LPF; WBC,URINE OCC /HPF (0-4)
[2018-10-12] MEDS: ATORVASTATIN CALCIUM 10 MG TABLET. PO SCH (20:30)
[2018-10-12 23:00] VITALS: BP 117/68
[2018-10-13] MEDS: LORazepam 1 MG TABLET PO SCH ×5 (00:43→19:00)
[2018-10-13 03:00] VITALS: BP 111/76
--- NOTE | 2018-10-13 04:50 | NUR ---
ct scan technician went into draw Patient's lab, he refused to had his blood drawn, this nurse went in to reproach with lab and Patient refused again, Patient's , Lea, was called and notified, she said she would try to come around 07:00 AM and try to see if she could talk him into having his blood drawn.
[2018-10-13] MEDS: LEVOTHYROXINE 50 MCG TABLET PO SCH (06:04)
[2018-10-13] MEDS: BUDESONIDE 0.5 MG/2 ML NEBU. NEB SCH ×2 (06:09→20:02)
--- NOTE | 2018-10-13 06:15 | NUR ---
This nurse went into room to administer scheduled Ativan and Synthroid, Patient pretend that he was going to take the medications, he had all three pills in his hand and pretended to put them into his mouth then pretend to point towards the television attempting to distract this nurse saying, "Look there! Look there!" This nurse noticed that the pills were still in his hands and he had wet one them, the Ativan were still sort of intact but the Synthroid was desegregating into pieses, as this nurse was asking for the pills back, Pari, from Respiratory Therapy walked into the room to give patient his breathing therapy which he also refused, so she helped this nurse retrieved the reset of the Ativan pills, which was wasted into the proper container with Christen.
[2018-10-13 07:00] VITALS: BP 117/68
[2018-10-13 08:49] LABS: BASO % 0 % (0-3); EOS # 0.3 x10^3/uL (0.0-0.7); EOS % 3 % (0-3); HEMATOCRIT 38.4 % (39.0-53.0); HEMOGLOBIN 12.9 g/dL (13.0-17.5); LYMPH # 0.4 x10^3/uL (1.0-4.8); LYMPH % 5 % (24-48); MEAN CORPUSCULAR HEMOGLOBIN 32 pg (25-35); MEAN CORPUSCULAR HGB CONC 34 g/dL (31-37); MEAN CORPUSCULAR VOLUME 95 fL (79-100); MONO % 12 % (0-9); NEUT # 6.9 x10^3uL (1.8-7.7); NEUT % 80 % (31-73); PLATELET COUNT 168 x10^3/uL (140-400); RED BLOOD COUNT 4.04 x10^6/uL (4.30-5.70); RED CELL DISTRIBUTION WIDTH 13.2 % (11.5-14.5); WHITE BLOOD COUNT 8.7 x10^3/uL (4.0-11.0)
--- NOTE | 2018-10-13 08:56 | PDOC ---
Objective: Objective: Per RN - MRCP to be done this afternoon, apparently helmet for cochlear implants arrived. No c/o pain. Reviewed notes - ?some confusion earlier - refused labs, wouldn't take meds, etc. Vital Signs: Vital Signs Date Time Temp Pulse Resp B/P (MAP) Pulse Ox O2 Delivery O2 Flow Rate FiO2 10/13/18 07:00 98.5 88 18 117/68 (84) 92 Nasal Cannula 2.0 98.5 Labs: Laboratory Tests Test 10/12/18 20:15 Urine Collection Type Unknown Urine Color [place] Urine Clarity Clear Urine pH 6.5 Urine Specific [place] 1.015 Urine Protein 30 mg/dL Urine Glucose (UA) Negative mg/dL Urine Ketones (Stick) Negative mg/dL Urine Blood Negative Urine Nitrite Negative Urine Bilirubin Large Urine Urobilinogen Dipstick 0.2 mg/dL Urine Leukocyte Esterase Negative Urine RBC Occ /HPF Urine WBC Occ /HPF Urine Squamous Epithelial Cells Few /LPF Urine Bacteria 0 /HPF Urine Mucus Slight /LPF PE: GEN: NAD NEURO/PSYCH: sleeping, not awakened A/P: Pancreatitis, abnormal LFTs, GB sludge - normal CBD on US -- H/o alcohol use... ?withdrawal Await MRCP w/ helmet for cochlear implants if he'll cooperate. Labs pending. ARIANA SARMIENTO Oct 13, 2018 08:56
[2018-10-13] MEDS ORDERED: MULTIVITAMIN with MINERAL TABLET. PO SCH (09:00)
[2018-10-13 09:01] LABS: ALBUMIN 2.2 g/dL (3.4-5.0); ALBUMIN/GLOBULIN RATIO 0.6 (1.0-1.7); CALCIUM 8.3 mg/dL (8.5-10.1); CREATININE 0.9 mg/dL (0.7-1.3); GFR 82.5; TOTAL PROTEIN 5.6 g/dL (6.4-8.2)
[2018-10-13 09:02] LABS: POTASSIUM 3.4 mmol/L (3.5-5.1)
[2018-10-13] MEDS: THIAMINE INJ 100 MG in IV DEXTROSE 5% 50 ML IV SCH (09:44)
--- NOTE | 2018-10-13 10:14 | PDOC ---
PROGRESS NOTES History of Present Illness History of Present Illness Assessment/Plan Assessment/Plan IMPRESSION: 1. Acute pancreatitis.POSSIBLE PASSED STONE 2. Wall thickening throughout much of the colon suspicious for colitis. 3. The appendix is negative. 4. Pulmonary nodules of the right lung base largest measuring 4 mm. Per Fleischner guidelines in a patient with risk factors for malignancy optional CT follow-up in 12 months would be advised. 5. Sludge noted in the gallbladder with gallbladder wall thickening possible cholecystitis. 6.GERD 7.BPH 8.HYPERLIPIDEMIA 9.transaminitis, IMPROVING 10. ALCOHOL ABUSE 11. ALCOHOL WITHDRAWAL symptoms, confusion earlier today 10/13 plan gi following gen surgery consult dvt prophylaxis iv fluid support iv protonix trial of liquid diet and monitor ALCOHOL WITHDRAWAL PRECAUTIONS HOME MEDS MRCP postponed - has cochlear implants 10/12 36 MIN PT EXAM, CHART REVIEW, > 50% of time spent with exam, chart review, pt care coordination Vitals Vitals Vital Signs Date Time Temp Pulse Resp B/P (MAP) Pulse Ox O2 Delivery O2 Flow Rate FiO2 10/13/18 07:00 98.5 88 18 117/68 (84) 92 Nasal Cannula 2.0 98.5 Physical Exam General: Alert, Oriented X3, Cooperative, No acute distress Heart: Regular rate, Normal S1, Normal S2, No murmurs Lungs: Clear Abdomen: Soft, No tenderness Extremities: No clubbing, No cyanosis Skin: No rashes, No breakdown Labs LABS Laboratory Tests Test 10/12/18 20:15 10/13/18 08:00 Urine Collection Type Unknown Urine Color [place] Urine Clarity Clear Urine pH 6.5 Urine Specific [place] 1.015 Urine Protein 30 mg/dL (NEG-TRACE) Urine Glucose (UA) Negative mg/dL (NEG) Urine Ketones (Stick) Negative mg/dL (NEG) Urine Blood Negative (NEG) Urine Nitrite Negative (NEG) Urine Bilirubin Large (NEG) Urine Urobilinogen Dipstick 0.2 mg/dL (0.2 mg/dL) Urine Leukocyte Esterase Negative (NEG) Urine RBC Occ /HPF (0-2) Urine WBC Occ /HPF (0-4) Urine Squamous Epithelial Cells Few /LPF Urine Bacteria 0 /HPF (0-FEW) Urine Mucus Slight /LPF White Blood Count 8.7 x10^3/uL (4.0-11.0) Red Blood Count 4.04 x10^6/uL (4.30-5.70) Hemoglobin 12.9 g/dL (13.0-17.5) Hematocrit 38.4 % (39.0-53.0) Mean Corpuscular Volume 95 fL (79-100) Mean Corpuscular Hemoglobin 32 pg (25-35) Mean Corpuscular Hemoglobin Concent 34 g/dL (31-37) Red Cell Distribution Width 13.2 % (11.5-14.5) Platelet Count 168 x10^3/uL (140-400) Neutrophils (%) (Auto) 80 % (31-73) Lymphocytes (%) (Auto) 5 % (24-48) Monocytes (%) (Auto) 12 % (0-9) Eosinophils (%) (Auto) 3 % (0-3) Basophils (%) (Auto) 0 % (0-3) Neutrophils # (Auto) 6.9 x10^3uL (1.8-7.7) Lymphocytes # (Auto) 0.4 x10^3/uL (1.0-4.8) Monocytes # (Auto) 1.0 x10^3/uL (0.0-1.1) Eosinophils # (Auto) 0.3 x10^3/uL (0.0-0.7) Basophils # (Auto) 0.0 x10^3/uL (0.0-0.2) Sodium Level 142 mmol/L (136-145) Potassium Level 3.4 mmol/L (3.5-5.1) Chloride Level 107 mmol/L (98-107) Carbon Dioxide Level 25 mmol/L (21-32) Anion Gap 10 (6-14) Blood Urea Nitrogen 10 mg/dL (8-26) Creatinine 0.9 mg/dL (0.7-1.3) Estimated GFR (Cockcroft-Gault) 82.5 BUN/Creatinine Ratio 11 (6-20) Glucose Level 99 mg/dL (70-99) Calcium Level 8.3 mg/dL (8.5-10.1) Total Bilirubin 6.0 mg/dL (0.2-1.0) Aspartate Amino Transf (AST/SGOT) 102 U/L (15-37) Alanine Aminotransferase (ALT/SGPT) 167 U/L (16-63) Alkaline Phosphatase 257 U/L (46-116) Total Protein 5.6 g/dL (6.4-8.2) Albumin 2.2 g/dL (3.4-5.0) Albumin/Globulin Ratio 0.6 (1.0-1.7) Lipase 2864 U/L (73-393) Assessment and Plan Assessmemt and Plan Problems Medical Problems: (1) Acute pancreatitis Status: Acute (2) Colitis Status: Acute Comment Review of Relevant I have reviewed the following items idalmis (where applicable) has been applied. Labs Laboratory Tests Test 10/11/18 19:45 10/12/18 03:50 10/12/18 20:15 10/13/18 08:00 Heparin Anti-Xa Act, Unfractionated 0.18 IU/mL (0.30-0.70) White Blood Count 11.2 x10^3/uL (4.0-11.0) 8.7 x10^3/uL (4.0-11.0) Red Blood Count 3.82 x10^6/uL (4.30-5.70) 4.04 x10^6/uL (4.30-5.70) Hemoglobin 12.2 g/dL (13.0-17.5) 12.9 g/dL (13.0-17.5) Hematocrit 36.9 % (39.0-53.0) 38.4 % (39.0-53.0) Mean Corpuscular Volume 97 fL (79-100) 95 fL (79-100) Mean Corpuscular Hemoglobin 32 pg (25-35) 32 pg (25-35) Mean Corpuscular Hemoglobin Concent 33 g/dL (31-37) 34 g/dL (31-37) Red Cell Distribution Width 13.3 % (11.5-14.5) 13.2 % (11.5-14.5) Platelet Count 141 x10^3/uL (140-400) 168 x10^3/uL (140-400) Sodium Level 139 mmol/L (136-145) 142 mmol/L (136-145) Potassium Level 3.4 mmol/L (3.5-5.1) 3.4 mmol/L (3.5-5.1) Chloride Level 104 mmol/L (98-107) 107 mmol/L (98-107) Carbon Dioxide Level 23 mmol/L (21-32) 25 mmol/L (21-32) Anion Gap 12 (6-14) 10 (6-14) Blood Urea Nitrogen 14 mg/dL (8-26) 10 mg/dL (8-26) Creatinine 0.9 mg/dL (0.7-1.3) 0.9 mg/dL (0.7-1.3) Estimated GFR (Cockcroft-Gault) 82.5 82.5 BUN/Creatinine Ratio 16 (6-20) 11 (6-20) Glucose Level 87 mg/dL (70-99) 99 mg/dL (70-99) Calcium Level 8.1 mg/dL (8.5-10.1) 8.3 mg/dL (8.5-10.1) Total Bilirubin 4.3 mg/dL (0.2-1.0) 6.0 mg/dL (0.2-1.0) Aspartate Amino Transf (AST/SGOT) 109 U/L (15-37) 102 U/L (15-37) Alanine Aminotransferase (ALT/SGPT) 196 U/L (16-63) 167 U/L (16-63) Alkaline Phosphatase 200 U/L (46-116) 257 U/L (46-116) Total Protein 5.5 g/dL (6.4-8.2) 5.6 g/dL (6.4-8.2) Albumin 2.3 g/dL (3.4-5.0) 2.2 g/dL (3.4-5.0) Albumin/Globulin Ratio 0.7 (1.0-1.7) 0.6 (1.0-1.7) Triglycerides Level 61 mg/dL (0-150) Cholesterol Level 106 mg/dL (0-200) LDL Cholesterol, Calculated 57 mg/dL (0-100) VLDL Cholesterol, Calculated 12 mg/dL (0-40) Non-HDL Cholesterol Calculated 69 mg/dL (0-129) HDL Cholesterol 37 mg/dL (40-60) Cholesterol/HDL Ratio 2.9 Urine Collection Type Unknown Urine Color [place] Urine Clarity Clear Urine pH 6.5 Urine Specific [place] 1.015 Urine Protein 30 mg/dL (NEG-TRACE) Urine Glucose (UA) Negative mg/dL (NEG) Urine Ketones (Stick) Negative mg/dL (NEG) Urine Blood Negative (NEG) Urine Nitrite Negative (NEG) Urine Bilirubin Large (NEG) Urine Urobilinogen Dipstick 0.2 mg/dL (0.2 mg/dL) Urine Leukocyte Esterase Negative (NEG) Urine RBC Occ /HPF (0-2) Urine WBC Occ /HPF (0-4) Urine Squamous Epithelial Cells Few /LPF Urine Bacteria 0 /HPF (0-FEW) Urine Mucus Slight /LPF Neutrophils (%) (Auto) 80 % (31-73) Lymphocytes (%) (Auto) 5 % (24-48) Monocytes (%) (Auto) 12 % (0-9) Eosinophils (%) (Auto) 3 % (0-3) Basophils (%) (Auto) 0 % (0-3) Neutrophils # (Auto) 6.9 x10^3uL (1.8-7.7) Lymphocytes # (Auto) 0.4 x10^3/uL (1.0-4.8) Monocytes # (Auto) 1.0 x10^3/uL (0.0-1.1) Eosinophils # (Auto) 0.3 x10^3/uL (0.0-0.7) Basophils # (Auto) 0.0 x10^3/uL (0.0-0.2) Lipase 2864 U/L (73-393) Laboratory Tests Test 10/12/18 20:15 10/13/18 08:00 Urine Collection Type Unknown Urine Color [place] Urine Clarity Clear Urine pH 6.5 Urine Specific [place] 1.015 Urine Protein 30 mg/dL (NEG-TRACE) Urine Glucose (UA) Negative mg/dL (NEG) Urine Ketones (Stick) Negative mg/dL (NEG) Urine Blood Negative (NEG) Urine Nitrite Negative (NEG) Urine Bilirubin Large (NEG) Urine Urobilinogen Dipstick 0.2 mg/dL (0.2 mg/dL) Urine Leukocyte Esterase Negative (NEG) Urine RBC Occ /HPF (0-2) Urine WBC Occ /HPF (0-4) Urine Squamous Epithelial Cells Few /LPF Urine Bacteria 0 /HPF (0-FEW) Urine Mucus Slight /LPF White Blood Count 8.7 x10^3/uL (4.0-11.0) Red Blood Count 4.04 x10^6/uL (4.30-5.70) Hemoglobin 12.9 g/dL (13.0-17.5) Hematocrit 38.4 % (39.0-53.0) Mean Corpuscular Volume 95 fL (79-100) Mean Corpuscular Hemoglobin 32 pg (25-35) Mean Corpuscular Hemoglobin Concent 34 g/dL (31-37) Red Cell Distribution Width 13.2 % (11.5-14.5) Platelet Count 168 x10^3/uL (140-400) Neutrophils (%) (Auto) 80 % (31-73) Lymphocytes (%) (Auto) 5 % (24-48) Monocytes (%) (Auto) 12 % (0-9) Eosinophils (%) (Auto) 3 % (0-3) Basophils (%) (Auto) 0 % (0-3) Neutrophils # (Auto) 6.9 x10^3uL (1.8-7.7) Lymphocytes # (Auto) 0.4 x10^3/uL (1.0-4.8) Monocytes # (Auto) 1.0 x10^3/uL (0.0-1.1) Eosinophils # (Auto) 0.3 x10^3/uL (0.0-0.7) Basophils # (Auto) 0.0 x10^3/uL (0.0-0.2) Sodium Level 142 mmol/L (136-145) Potassium Level 3.4 mmol/L (3.5-5.1) Chloride Level 107 mmol/L (98-107) Carbon Dioxide Level 25 mmol/L (21-32) Anion Gap 10 (6-14) Blood Urea Nitrogen 10 mg/dL (8-26) Creatinine 0.9 mg/dL (0.7-1.3) Estimated GFR (Cockcroft-Gault) 82.5 BUN/Creatinine Ratio 11 (6-20) Glucose Level 99 mg/dL (70-99) Calcium Level 8.3 mg/dL (8.5-10.1) Total Bilirubin 6.0 mg/dL (0.2-1.0) Aspartate Amino Transf (AST/SGOT) 102 U/L (15-37) Alanine Aminotransferase (ALT/SGPT) 167 U/L (16-63) Alkaline Phosphatase 257 U/L (46-116) Total Protein 5.6 g/dL (6.4-8.2) Albumin 2.2 g/dL (3.4-5.0) Albumin/Globulin Ratio 0.6 (1.0-1.7) Lipase 2864 U/L (73-393) Medications Current Medications Fentanyl Citrate (Fentanyl 2ml Vial) 50 mcg 1X ONCE IV Last administered on 02:29; Start 10/10/18 at 03:00; Stop 10/10/18 at 03:01; Status DC Ondansetron HCl (Zofran) 4 mg 1X ONCE IV Last administered on 10/10/18 02:29 ; Start 10/10/18 at 03:00; Stop 10/10/18 at 03:01; Status DC Multi-Ingredient Mouthwash/Gargle (Gi Cocktail) 20 ml 1X ONCE SWSW Last administered on 10/10/18at 02:30; Start 10/10/18 at 03:00; Stop 10/10/18 at 03:01 ; Status DC Sodium Chloride 1,000 ml @ 1,000 mls/hr 1X ONCE IV Last administered on at 03:18; Start 10/10/18 at 03:30; Stop 10/10/18 at 04:29; Status DC Iohexol (Omnipaque 300 Mg/ml) 75 ml 1X ONCE IV Last administered on 10/10/18at 03:49; Start 10/10/18 at 04:00; Stop 10/10/18 at 04:01; Status DC Info (CONTRAST GIVEN -- Rx MONITORING) 1 each PRN DAILY PRN MC SEE COMMENTS; Start 10/10/18 at 03:30; Stop 10/12/18 at 03:29; Status DC Ondansetron HCl (Zofran) 4 mg PRN Q8HRS PRN IV NAUSEA/VOMITING 1ST CHOICE; Start 10/10/18 at 04:30; Stop 10/11/18 at 04:29; Status DC Morphine Sulfate (Morphine Sulfate) 4 mg PRN Q2HR PRN IV SEVERE PAIN Last administered on 10/10/18at 21:04; Start 10/10/18 at 04:30; Stop 10/11/18 at 04:29 ; Status DC Sodium Chloride 1,000 ml @ 125 mls/hr Q8H IV Last administered on 10/10/18at 12 :00; Start 10/10/18 at 05:00; Stop 10/11/18 at 04:59; Status DC Pantoprazole Sodium (PROTONIX VIAL for IV PUSH) 40 mg DAILYAC IVP Last administered on 10/10/18 12:00; Start 10/10/18 at 11:30; Stop 10/10/18 at 14:42 ; Status DC Alprazolam (Xanax) 0.5 mg PRN DAILY PRN PO ANXIETY / AGITATION Last administered on 10/11/18 20:42; Start 10/10/18 at 13:45 Aspirin (Ecotrin) 81 mg DAILY08 PO Last administered on 10/12/18 13:14; Start 10/10/18 at 15:00 Ergocalciferol (Vitamin D2) 50,000 unit WEEKLY PO Last administered on 08:59; Start 10/11/18 at 09:00 Tamsulosin HCl (Flomax) 0.8 mg DAILY PO Last administered on 10/12/18 13:14; Start 10/10/18 at 15:00 Budesonide (Pulmicort) 0.5 mg RTBID NEB Last administered on 10/12/18 19:27; Start 10/10/18 at 20:00 Levothyroxine Sodium (Synthroid) 50 mcg DAILY06 PO Last administered on 06:04; Start 10/10/18 at 15:00 Atorvastatin Calcium (Lipitor) 5 mg QHS PO Last administered on 10/12/18 20:30 ; Start 10/10/18 at 21:00 Multivitamins (Thera M Plus) 1 tab DAILY PO Last administered on 10/12/18 13: 13; Start 10/10/18 at 15:00 Pantoprazole Sodium (Protonix) 40 mg DAILYAC PO Last administered on 10/12/18 13:14; Start 10/11/18 at 07:30 Paroxetine HCl (Paxil) 40 mg DAILY PO Last administered on 10/12/18 13:15; Start 10/10/18 at 15:00 Enoxaparin Sodium (Lovenox 40mg Syringe) 40 mg Q24H SQ Last administered on 15:33; Start 10/10/18 at 15:00 Sodium Chloride 1,000 ml @ 1,000 mls/hr 1X ONCE IV Last administered on at 16:30; Start 10/10/18 at 16:30; Stop 10/10/18 at 17:29; Status DC Multivitamins (Thera M Plus) 1 tab DAILY PO ; Start 10/13/18 at 09:00; Status UNV Folic Acid (Folic Acid) 1 mg DAILY PO ; Start 10/13/18 at 09:00 Thiamine HCl 100 mg/Dextrose 51 ml @ 100 mls/hr DAILY IV Last administered on 10/13/18at 09:44; Start 10/13/18 at 09:00; Stop 10/17/18 at 09:31 Lorazepam (Ativan) 2 mg Q6H PO Last administered on 10/13/18at 00:43; Start at 13:00; Stop 10/13/18 at 19:01 Active Scripts Active Reported Flovent 44MCG Hfa (Fluticasone Propionate) 10.6 Gm Aer.w.adap 2 Puff IH BID PRN Alprazolam 0.5 Mg Tablet 1 Tab PO DAILY PRN Omeprazole 40 Mg Capsule.dr 1 Cap PO HS Odor Free Garlic (Garlic) 100 Mg Tablet 100 Mg PO HS Urinozinc Prostate Formula Cap (Multivits-Min/Hrb Cb121) 1 Each Capsule 2 Each PO DAILY Flomax (Tamsulosin Hcl) 0.4 Mg Cap.er.24h 2 Cap PO DAILY Paroxetine Hcl 40 Mg Tablet 1 Tab PO DAILY Meloxicam 7.5 Mg Tablet 1 Tab PO DAILY Lovastatin 20 Mg Tablet 1 Tab PO DAILY Levothyroxine Sodium 50 Mcg Tablet 1 Tab PO DAILY Vitamin D2 (Ergocalciferol (Vitamin D2)) 50,000 Unit Capsule 1 Cap PO WEEKLY Aspirin Ec (Aspirin) 81 Mg Tablet. 1 Tab PO DAILY Vitals/I & O Vital Sign - Last 24 Hours 10/12/18 10/12/18 10/12/18 10/12/18 10:44 14:46 19:00 19:27 Temp 97.8 97.9 98.6 97.8 97.9 98.6 Pulse 80 86 86 Resp 20 20 20 B/P (MAP) 110/64 (79) 119/66 (83) 120/69 (86) Pulse Ox 93 94 94 93 O2 Delivery Nasal Cannula Room Air Room Air O2 Flow Rate 2.0 10/12/18 10/12/18 10/13/18 10/13/18 20:00 23:00 03:00 07:00 Temp 99.4 99.2 98.5 99.4 99.2 98.5 Pulse 86 86 88 Resp 22 22 18 B/P (MAP) 117/68 (84) 111/76 (88) 117/68 (84) Pulse Ox 93 92 92 O2 Delivery Nasal Cannula Room Air Nasal Cannula O2 Flow Rate 2.0 2.0 Intake and Output 10/12/18 10/12/18 10/13/18 15:00 23:00 07:00 Intake Total 300 ml 420 ml 170 ml Balance 300 ml 420 ml 170 ml KUMAR TALLEY MD Oct 13, 2018 10:14
[2018-10-13 11:00] VITALS: BP 117/69
[2018-10-13] MEDS ORDERED: LORazepam 1 MG TABLET PO SCH (12:45)
--- NOTE | 2018-10-13 13:01 | PDOC ---
SURGICAL PROGRESS NOTE Subjective pt sleeping soundly some family at bedside Vital Signs Vital Signs Date Time Temp Pulse Resp B/P (MAP) Pulse Ox O2 Delivery O2 Flow Rate FiO2 10/13/18 11:00 98.7 85 18 117/69 (85) 93 98.7 10/13/18 08:00 Nasal Cannula 2.0 I&O Intake and Output 10/13/18 07:00 Intake Total 890 ml Balance 890 ml Intake Oral 890 ml # Voids 3 # Bowel Movements 1 PATIENT HAS A JOHNS: No Lungs: Normal air movement Labs Laboratory Tests Test 10/11/18 19:45 10/12/18 03:50 10/12/18 20:15 10/13/18 08:00 Heparin Anti-Xa Act, Unfractionated 0.18 IU/mL (0.30-0.70) White Blood Count 11.2 x10^3/uL (4.0-11.0) 8.7 x10^3/uL (4.0-11.0) Red Blood Count 3.82 x10^6/uL (4.30-5.70) 4.04 x10^6/uL (4.30-5.70) Hemoglobin 12.2 g/dL (13.0-17.5) 12.9 g/dL (13.0-17.5) Hematocrit 36.9 % (39.0-53.0) 38.4 % (39.0-53.0) Mean Corpuscular Volume 97 fL (79-100) 95 fL (79-100) Mean Corpuscular Hemoglobin 32 pg (25-35) 32 pg (25-35) Mean Corpuscular Hemoglobin Concent 33 g/dL (31-37) 34 g/dL (31-37) Red Cell Distribution Width 13.3 % (11.5-14.5) 13.2 % (11.5-14.5) Platelet Count 141 x10^3/uL (140-400) 168 x10^3/uL (140-400) Sodium Level 139 mmol/L (136-145) 142 mmol/L (136-145) Potassium Level 3.4 mmol/L (3.5-5.1) 3.4 mmol/L (3.5-5.1) Chloride Level 104 mmol/L (98-107) 107 mmol/L (98-107) Carbon Dioxide Level 23 mmol/L (21-32) 25 mmol/L (21-32) Anion Gap 12 (6-14) 10 (6-14) Blood Urea Nitrogen 14 mg/dL (8-26) 10 mg/dL (8-26) Creatinine 0.9 mg/dL (0.7-1.3) 0.9 mg/dL (0.7-1.3) Estimated GFR (Cockcroft-Gault) 82.5 82.5 BUN/Creatinine Ratio 16 (6-20) 11 (6-20) Glucose Level 87 mg/dL (70-99) 99 mg/dL (70-99) Calcium Level 8.1 mg/dL (8.5-10.1) 8.3 mg/dL (8.5-10.1) Total Bilirubin 4.3 mg/dL (0.2-1.0) 6.0 mg/dL (0.2-1.0) Aspartate Amino Transf (AST/SGOT) 109 U/L (15-37) 102 U/L (15-37) Alanine Aminotransferase (ALT/SGPT) 196 U/L (16-63) 167 U/L (16-63) Alkaline Phosphatase 200 U/L (46-116) 257 U/L (46-116) Total Protein 5.5 g/dL (6.4-8.2) 5.6 g/dL (6.4-8.2) Albumin 2.3 g/dL (3.4-5.0) 2.2 g/dL (3.4-5.0) Albumin/Globulin Ratio 0.7 (1.0-1.7) 0.6 (1.0-1.7) Triglycerides Level 61 mg/dL (0-150) Cholesterol Level 106 mg/dL (0-200) LDL Cholesterol, Calculated 57 mg/dL (0-100) VLDL Cholesterol, Calculated 12 mg/dL (0-40) Non-HDL Cholesterol Calculated 69 mg/dL (0-129) HDL Cholesterol 37 mg/dL (40-60) Cholesterol/HDL Ratio 2.9 Urine Collection Type Unknown Urine Color [place] Urine Clarity Clear Urine pH 6.5 Urine Specific [place] 1.015 Urine Protein 30 mg/dL (NEG-TRACE) Urine Glucose (UA) Negative mg/dL (NEG) Urine Ketones (Stick) Negative mg/dL (NEG) Urine Blood Negative (NEG) Urine Nitrite Negative (NEG) Urine Bilirubin Large (NEG) Urine Urobilinogen Dipstick 0.2 mg/dL (0.2 mg/dL) Urine Leukocyte Esterase Negative (NEG) Urine RBC Occ /HPF (0-2) Urine WBC Occ /HPF (0-4) Urine Squamous Epithelial Cells Few /LPF Urine Bacteria 0 /HPF (0-FEW) Urine Mucus Slight /LPF Neutrophils (%) (Auto) 80 % (31-73) Lymphocytes (%) (Auto) 5 % (24-48) Monocytes (%) (Auto) 12 % (0-9) Eosinophils (%) (Auto) 3 % (0-3) Basophils (%) (Auto) 0 % (0-3) Neutrophils # (Auto) 6.9 x10^3uL (1.8-7.7) Lymphocytes # (Auto) 0.4 x10^3/uL (1.0-4.8) Monocytes # (Auto) 1.0 x10^3/uL (0.0-1.1) Eosinophils # (Auto) 0.3 x10^3/uL (0.0-0.7) Basophils # (Auto) 0.0 x10^3/uL (0.0-0.2) Lipase 2864 U/L (73-393) Laboratory Tests Test 10/12/18 20:15 10/13/18 08:00 Urine Collection Type Unknown Urine Color [place] Urine Clarity Clear Urine pH 6.5 Urine Specific [place] 1.015 Urine Protein 30 mg/dL (NEG-TRACE) Urine Glucose (UA) Negative mg/dL (NEG) Urine Ketones (Stick) Negative mg/dL (NEG) Urine Blood Negative (NEG) Urine Nitrite Negative (NEG) Urine Bilirubin Large (NEG) Urine Urobilinogen Dipstick 0.2 mg/dL (0.2 mg/dL) Urine Leukocyte Esterase Negative (NEG) Urine RBC Occ /HPF (0-2) Urine WBC Occ /HPF (0-4) Urine Squamous Epithelial Cells Few /LPF Urine Bacteria 0 /HPF (0-FEW) Urine Mucus Slight /LPF White Blood Count 8.7 x10^3/uL (4.0-11.0) Red Blood Count 4.04 x10^6/uL (4.30-5.70) Hemoglobin 12.9 g/dL (13.0-17.5) Hematocrit 38.4 % (39.0-53.0) Mean Corpuscular Volume 95 fL (79-100) Mean Corpuscular Hemoglobin 32 pg (25-35) Mean Corpuscular Hemoglobin Concent 34 g/dL (31-37) Red Cell Distribution Width 13.2 % (11.5-14.5) Platelet Count 168 x10^3/uL (140-400) Neutrophils (%) (Auto) 80 % (31-73) Lymphocytes (%) (Auto) 5 % (24-48) Monocytes (%) (Auto) 12 % (0-9) Eosinophils (%) (Auto) 3 % (0-3) Basophils (%) (Auto) 0 % (0-3) Neutrophils # (Auto) 6.9 x10^3uL (1.8-7.7) Lymphocytes # (Auto) 0.4 x10^3/uL (1.0-4.8) Monocytes # (Auto) 1.0 x10^3/uL (0.0-1.1) Eosinophils # (Auto) 0.3 x10^3/uL (0.0-0.7) Basophils # (Auto) 0.0 x10^3/uL (0.0-0.2) Sodium Level 142 mmol/L (136-145) Potassium Level 3.4 mmol/L (3.5-5.1) Chloride Level 107 mmol/L (98-107) Carbon Dioxide Level 25 mmol/L (21-32) Anion Gap 10 (6-14) Blood Urea Nitrogen 10 mg/dL (8-26) Creatinine 0.9 mg/dL (0.7-1.3) Estimated GFR (Cockcroft-Gault) 82.5 BUN/Creatinine Ratio 11 (6-20) Glucose Level 99 mg/dL (70-99) Calcium Level 8.3 mg/dL (8.5-10.1) Total Bilirubin 6.0 mg/dL (0.2-1.0) Aspartate Amino Transf (AST/SGOT) 102 U/L (15-37) Alanine Aminotransferase (ALT/SGPT) 167 U/L (16-63) Alkaline Phosphatase 257 U/L (46-116) Total Protein 5.6 g/dL (6.4-8.2) Albumin 2.2 g/dL (3.4-5.0) Albumin/Globulin Ratio 0.6 (1.0-1.7) Lipase 2864 U/L (73-393) Problem List Problems Medical Problems: (1) Acute pancreatitis Status: Acute (2) Colitis Status: Acute Assessment/Plan pancreatitis elevated LFT's for MRCP today await those results WENDY VARELA MD Oct 13, 2018 13:01
[2018-10-13] MEDS ORDERED: POTASSIUM CHLORIDE 20 MEQ TABLET.ER. PO ONE (13:30)
--- NOTE | 2018-10-13 14:13 | RAD ---
Examination: MRCP WO CONTRAST History: ELEVATED LFTs, NO SX HX, NO PRIORS, UNABLE TO OBTAIN CORONAL VIEWS DUE TO MRI CONDITIONAL COCHLEAR IMPLANT BRYCE LIMITATIONS Comparison/Correlation: CT abdomen and pelvis with IV contrast 10/10/2018, right upper quadrant ultrasound exam 10/10/2018 Findings: Multiplanar, multisequence images of the abdomen were obtained according to MRCP protocol. Thick slab images were provided. MIP images provided. Motion limits evaluation of thick slab images. Coronal images could not be obtained due to the patient having a MRI conditional cochlear implant. Bibasilar pleural effusions and adjacent atelectasis are present. Gallbladder is normal. Liver and spleen are normal. Pancreas is normal. Adrenal glands are normal. Small bilateral renal cysts are present. No enlarged upper abdominal lymph nodes. No ascites. Common duct measures 0.7 cm diameter. No suspicious filling defect. No stricture of the common duct. No definite calculi gallbladder. No pericholecystic fluid collection. No pancreatic dilatation or evidence of pancreatic divisum. Impression: Bilateral pleural effusions and adjacent atelectasis at the posterior basilar aspect. No biliary dilatation. Electronically signed by: Damian Ayala MD (10/13/2018 2:10 PM) [id number]
[2018-10-13 15:00] VITALS: BP 125/72
[2018-10-13] MEDS: MULTIVITAMIN with MINERAL TABLET. PO SCH (15:44)
[2018-10-13] MEDS: FOLIC ACID 1 MG TABLET. PO SCH (15:44)
[2018-10-13] MEDS: ASPIRIN ENTERIC COATED 81 MG TABLET.DR. PO SCH (15:44)
[2018-10-13] MEDS: TAMSULOSIN 0.4 MG CAP.ER.24H. PO SCH (15:44)
[2018-10-13] MEDS: PARoxetine 20 MG TABLET PO SCH (15:44)
[2018-10-13] MEDS: PANTOPRAZOLE 40 MG TABLET.DR. PO SCH (15:45)
[2018-10-13] MEDS: ENOXAPARIN 40 MG/0.4 ML SYRINGE. SQ SCH (15:47)
--- NOTE | 2018-10-13 19:26 | NUR ---
After patient returned from [facility], patients called this nurse into the room to check on patient. states that patients cochlear implant is not working and wont magnetize to hearing aid. This nurse attempted to try and unable to get magnet to work. Spoke with air analysis technician. air analysis technician spoke with cochlear implant company and was unable assist without seeing patient. Patients spoke with patients hearing aid dr and they want to see patient as soon as he is discharged. Will continue to monitor.
[2018-10-13 19:54] VITALS: BP 129/67
[2018-10-13] MEDS: ATORVASTATIN CALCIUM 10 MG TABLET. PO SCH (21:23)
[2018-10-13] MEDS: ALPRAZolam 0.5 MG TABLET PO PRN (21:23)
[2018-10-13 23:14] VITALS: BP 107/54
[2018-10-14 03:10] VITALS: BP 108/60
--- NOTE | 2018-10-14 04:00 | NUR ---
Assumed care of patient at this time, assessment as documented. No new complaints or concerns at this time.
[2018-10-14 06:05] LABS: ALBUMIN 2.1 g/dL (3.4-5.0); ALBUMIN/GLOBULIN RATIO 0.6 (1.0-1.7); CALCIUM 8.2 mg/dL (8.5-10.1); CREATININE 0.8 mg/dL (0.7-1.3); GFR 94.5; POTASSIUM 3.4 mmol/L (3.5-5.1); TOTAL BILIRUBIN 5.5 mg/dL (0.2-1.0); TOTAL PROTEIN 5.7 g/dL (6.4-8.2)
[2018-10-14] MEDS: PANTOPRAZOLE 40 MG TABLET.DR. PO SCH (06:19)
[2018-10-14] MEDS: LEVOTHYROXINE 50 MCG TABLET PO SCH (06:19)
[2018-10-14 07:05] VITALS: BP 155/68
[2018-10-14] MEDS ORDERED: POTASSIUM CHLORIDE 20 MEQ TABLET.ER. PO SCH (08:00)
[2018-10-14] MEDS: BUDESONIDE 0.5 MG/2 ML NEBU. NEB SCH (08:01)
[2018-10-14] MEDS: TAMSULOSIN 0.4 MG CAP.ER.24H. PO SCH (08:55)
[2018-10-14] MEDS: PARoxetine 20 MG TABLET PO SCH (08:55)
[2018-10-14] MEDS: FOLIC ACID 1 MG TABLET. PO SCH (08:55)
[2018-10-14] MEDS: ASPIRIN ENTERIC COATED 81 MG TABLET.DR. PO SCH (08:55)
[2018-10-14] MEDS: THIAMINE INJ 100 MG in IV DEXTROSE 5% 50 ML IV SCH (08:55)
[2018-10-14] MEDS: MULTIVITAMIN with MINERAL TABLET. PO SCH (08:55)
--- NOTE | 2018-10-14 10:18 | PDOC ---
BERTA CALDERON PAI GOW MANAGER 10/14/18 1018: SURGICAL PROGRESS NOTE Subjective denies pain tolerating diet Vital Signs Vital Signs Date Time Temp Pulse Resp B/P (MAP) Pulse Ox O2 Delivery O2 Flow Rate FiO2 10/14/18 08:01 95 Room Air 10/14/18 07:05 97.9 69 20 155/68 (97) 97.9 10/13/18 20:04 2.0 I&O Intake and Output 10/14/18 07:00 Intake Total 200 ml Balance 200 ml Intake Oral 200 ml # Voids 5 # Bowel Movements 1 General: Alert, Oriented X3, Cooperative, No acute distress Abdomen: Soft, No tenderness Labs Laboratory Tests Test 10/12/18 20:15 10/13/18 08:00 10/14/18 05:05 Urine Collection Type Unknown Urine Color [place] Urine Clarity Clear Urine pH 6.5 Urine Specific [place] 1.015 Urine Protein 30 mg/dL (NEG-TRACE) Urine Glucose (UA) Negative mg/dL (NEG) Urine Ketones (Stick) Negative mg/dL (NEG) Urine Blood Negative (NEG) Urine Nitrite Negative (NEG) Urine Bilirubin Large (NEG) Urine Urobilinogen Dipstick 0.2 mg/dL (0.2 mg/dL) Urine Leukocyte Esterase Negative (NEG) Urine RBC Occ /HPF (0-2) Urine WBC Occ /HPF (0-4) Urine Squamous Epithelial Cells Few /LPF Urine Bacteria 0 /HPF (0-FEW) Urine Mucus Slight /LPF White Blood Count 8.7 x10^3/uL (4.0-11.0) Red Blood Count 4.04 x10^6/uL (4.30-5.70) Hemoglobin 12.9 g/dL (13.0-17.5) Hematocrit 38.4 % (39.0-53.0) Mean Corpuscular Volume 95 fL (79-100) Mean Corpuscular Hemoglobin 32 pg (25-35) Mean Corpuscular Hemoglobin Concent 34 g/dL (31-37) Red Cell Distribution Width 13.2 % (11.5-14.5) Platelet Count 168 x10^3/uL (140-400) Neutrophils (%) (Auto) 80 % (31-73) Lymphocytes (%) (Auto) 5 % (24-48) Monocytes (%) (Auto) 12 % (0-9) Eosinophils (%) (Auto) 3 % (0-3) Basophils (%) (Auto) 0 % (0-3) Neutrophils # (Auto) 6.9 x10^3uL (1.8-7.7) Lymphocytes # (Auto) 0.4 x10^3/uL (1.0-4.8) Monocytes # (Auto) 1.0 x10^3/uL (0.0-1.1) Eosinophils # (Auto) 0.3 x10^3/uL (0.0-0.7) Basophils # (Auto) 0.0 x10^3/uL (0.0-0.2) Sodium Level 142 mmol/L (136-145) 143 mmol/L (136-145) Potassium Level 3.4 mmol/L (3.5-5.1) 3.4 mmol/L (3.5-5.1) Chloride Level 107 mmol/L (98-107) 108 mmol/L (98-107) Carbon Dioxide Level 25 mmol/L (21-32) 25 mmol/L (21-32) Anion Gap 10 (6-14) 10 (6-14) Blood Urea Nitrogen 10 mg/dL (8-26) 13 mg/dL (8-26) Creatinine 0.9 mg/dL (0.7-1.3) 0.8 mg/dL (0.7-1.3) Estimated GFR (Cockcroft-Gault) 82.5 94.5 BUN/Creatinine Ratio 11 (6-20) 16 (6-20) Glucose Level 99 mg/dL (70-99) 90 mg/dL (70-99) Calcium Level 8.3 mg/dL (8.5-10.1) 8.2 mg/dL (8.5-10.1) Total Bilirubin 6.0 mg/dL (0.2-1.0) 5.5 mg/dL (0.2-1.0) Aspartate Amino Transf (AST/SGOT) 102 U/L (15-37) 119 U/L (15-37) Alanine Aminotransferase (ALT/SGPT) 167 U/L (16-63) 172 U/L (16-63) Alkaline Phosphatase 257 U/L (46-116) 313 U/L (46-116) Total Protein 5.6 g/dL (6.4-8.2) 5.7 g/dL (6.4-8.2) Albumin 2.2 g/dL (3.4-5.0) 2.1 g/dL (3.4-5.0) Albumin/Globulin Ratio 0.6 (1.0-1.7) 0.6 (1.0-1.7) Lipase 2864 U/L (73-393) Laboratory Tests Test 10/14/18 05:05 Sodium Level 143 mmol/L (136-145) Potassium Level 3.4 mmol/L (3.5-5.1) Chloride Level 108 mmol/L (98-107) Carbon Dioxide Level 25 mmol/L (21-32) Anion Gap 10 (6-14) Blood Urea Nitrogen 13 mg/dL (8-26) Creatinine 0.8 mg/dL (0.7-1.3) Estimated GFR (Cockcroft-Gault) 94.5 BUN/Creatinine Ratio 16 (6-20) Glucose Level 90 mg/dL (70-99) Calcium Level 8.2 mg/dL (8.5-10.1) Total Bilirubin 5.5 mg/dL (0.2-1.0) Aspartate Amino Transf (AST/SGOT) 119 U/L (15-37) Alanine Aminotransferase (ALT/SGPT) 172 U/L (16-63) Alkaline Phosphatase 313 U/L (46-116) Total Protein 5.7 g/dL (6.4-8.2) Albumin 2.1 g/dL (3.4-5.0) Albumin/Globulin Ratio 0.6 (1.0-1.7) Problem List Problems Medical Problems: (1) Acute pancreatitis Status: Acute (2) Colitis Status: Acute Assessment/Plan mrcp reviewed elevated LFTs GI following, will review with WENDY Cano MD 10/14/18 1230: SURGICAL PROGRESS NOTE Assessment/Plan as above pt is clinically improved suggest expectant treatment as don't think gall bladder is source for elevated LFT's/pancreatitis given MRCP results and hx of EtOH could follow as outpatient BERTA CALDERON APRN Oct 14, 2018 10:18 WENDY VARELA MD Oct 14, 2018 12:30
[2018-10-14 10:55] VITALS: BP 121/68
--- NOTE | 2018-10-14 11:15 | PDOC ---
PROGRESS NOTES History of Present Illness History of Present Illness Assessment/Plan Assessment/Plan IMPRESSION: 1. Acute pancreatitis.POSSIBLE PASSED STONE 2. Wall thickening throughout much of the colon suspicious for colitis. 3. The appendix is negative. 4. Pulmonary nodules of the right lung base largest measuring 4 mm. Per Fleischner guidelines in a patient with risk factors for malignancy optional CT follow-up in 12 months would be advised. 5. Sludge noted in the gallbladder with gallbladder wall thickening possible cholecystitis. 6.GERD 7.BPH 8.HYPERLIPIDEMIA 9.transaminitis, IMPROVING 10. ALCOHOL ABUSE 11. ALCOHOL WITHDRAWAL symptoms, confusion earlier today 10/13 12. Cholestasis worsening. bili higher Bilateral pleural effusions and adjacent atelectasis at the posterior basilar aspect. No biliary dilatation. ON MRCP plan gi following ? home per GI gen surgery consult dvt prophylaxis iv fluid support iv protonix trial of liquid diet and monitor ALCOHOL WITHDRAWAL PRECAUTIONS HOME MEDS MRCP OK 36 MIN PT EXAM, CHART REVIEW, > 50% of time spent with exam, chart review, pt care coordination Vitals Vitals Vital Signs Date Time Temp Pulse Resp B/P (MAP) Pulse Ox O2 Delivery O2 Flow Rate FiO2 10/14/18 10:55 97.7 74 18 121/68 (85) 94 Room Air 97.7 10/14/18 08:00 2.0 Physical Exam General: Alert, Oriented X3, Cooperative, No acute distress Heart: Regular rate, Normal S1, Normal S2, No murmurs Lungs: Clear Abdomen: Soft, No tenderness Extremities: No clubbing, No cyanosis Skin: No rashes, No breakdown Labs LABS Examination: MRCP WO CONTRAST History: ELEVATED LFTs, NO SX HX, NO PRIORS, UNABLE TO OBTAIN CORONAL VIEWS DUE TO MRI CONDITIONAL COCHLEAR IMPLANT BRYCE LIMITATIONS Comparison/Correlation: CT abdomen and pelvis with IV contrast 10/10/2018, right upper quadrant ultrasound exam 10/10/2018 Findings: Multiplanar, multisequence images of the abdomen were obtained according to MRCP protocol. Thick slab images were provided. MIP images provided. Motion limits evaluation of thick slab images. Coronal images could not be obtained due to the patient having a MRI conditional cochlear implant. Bibasilar pleural effusions and adjacent atelectasis are present. Gallbladder is normal. Liver and spleen are normal. Pancreas is normal. Adrenal glands are normal. Small bilateral renal cysts are present. No enlarged upper abdominal lymph nodes. No ascites. Common duct measures 0.7 cm diameter. No suspicious filling defect. No stricture of the common duct. No definite calculi gallbladder. No pericholecystic fluid collection. No pancreatic dilatation or evidence of pancreatic divisum. Impression: Bilateral pleural effusions and adjacent atelectasis at the posterior basilar aspect. No biliary dilatation. Electronically signed by: Damian Ayala MD (10/13/2018 2:10 PM) [id number] Laboratory Tests Test 10/14/18 05:05 Sodium Level 143 mmol/L (136-145) Potassium Level 3.4 mmol/L (3.5-5.1) Chloride Level 108 mmol/L (98-107) Carbon Dioxide Level 25 mmol/L (21-32) Anion Gap 10 (6-14) Blood Urea Nitrogen 13 mg/dL (8-26) Creatinine 0.8 mg/dL (0.7-1.3) Estimated GFR (Cockcroft-Gault) 94.5 BUN/Creatinine Ratio 16 (6-20) Glucose Level 90 mg/dL (70-99) Calcium Level 8.2 mg/dL (8.5-10.1) Total Bilirubin 5.5 mg/dL (0.2-1.0) Aspartate Amino Transf (AST/SGOT) 119 U/L (15-37) Alanine Aminotransferase (ALT/SGPT) 172 U/L (16-63) Alkaline Phosphatase 313 U/L (46-116) Total Protein 5.7 g/dL (6.4-8.2) Albumin 2.1 g/dL (3.4-5.0) Albumin/Globulin Ratio 0.6 (1.0-1.7) Assessment and Plan Assessmemt and Plan Problems Medical Problems: (1) Acute pancreatitis Status: Acute (2) Colitis Status: Acute Comment Review of Relevant I have reviewed the following items idalmis (where applicable) has been applied. Labs Laboratory Tests Test 10/12/18 20:15 10/13/18 08:00 10/14/18 05:05 Urine Collection Type Unknown Urine Color [place] Urine Clarity Clear Urine pH 6.5 Urine Specific [place] 1.015 Urine Protein 30 mg/dL (NEG-TRACE) Urine Glucose (UA) Negative mg/dL (NEG) Urine Ketones (Stick) Negative mg/dL (NEG) Urine Blood Negative (NEG) Urine Nitrite Negative (NEG) Urine Bilirubin Large (NEG) Urine Urobilinogen Dipstick 0.2 mg/dL (0.2 mg/dL) Urine Leukocyte Esterase Negative (NEG) Urine RBC Occ /HPF (0-2) Urine WBC Occ /HPF (0-4) Urine Squamous Epithelial Cells Few /LPF Urine Bacteria 0 /HPF (0-FEW) Urine Mucus Slight /LPF White Blood Count 8.7 x10^3/uL (4.0-11.0) Red Blood Count 4.04 x10^6/uL (4.30-5.70) Hemoglobin 12.9 g/dL (13.0-17.5) Hematocrit 38.4 % (39.0-53.0) Mean Corpuscular Volume 95 fL (79-100) Mean Corpuscular Hemoglobin 32 pg (25-35) Mean Corpuscular Hemoglobin Concent 34 g/dL (31-37) Red Cell Distribution Width 13.2 % (11.5-14.5) Platelet Count 168 x10^3/uL (140-400) Neutrophils (%) (Auto) 80 % (31-73) Lymphocytes (%) (Auto) 5 % (24-48) Monocytes (%) (Auto) 12 % (0-9) Eosinophils (%) (Auto) 3 % (0-3) Basophils (%) (Auto) 0 % (0-3) Neutrophils # (Auto) 6.9 x10^3uL (1.8-7.7) Lymphocytes # (Auto) 0.4 x10^3/uL (1.0-4.8) Monocytes # (Auto) 1.0 x10^3/uL (0.0-1.1) Eosinophils # (Auto) 0.3 x10^3/uL (0.0-0.7) Basophils # (Auto) 0.0 x10^3/uL (0.0-0.2) Sodium Level 142 mmol/L (136-145) 143 mmol/L (136-145) Potassium Level 3.4 mmol/L (3.5-5.1) 3.4 mmol/L (3.5-5.1) Chloride Level 107 mmol/L (98-107) 108 mmol/L (98-107) Carbon Dioxide Level 25 mmol/L (21-32) 25 mmol/L (21-32) Anion Gap 10 (6-14) 10 (6-14) Blood Urea Nitrogen 10 mg/dL (8-26) 13 mg/dL (8-26) Creatinine 0.9 mg/dL (0.7-1.3) 0.8 mg/dL (0.7-1.3) Estimated GFR (Cockcroft-Gault) 82.5 94.5 BUN/Creatinine Ratio 11 (6-20) 16 (6-20) Glucose Level 99 mg/dL (70-99) 90 mg/dL (70-99) Calcium Level 8.3 mg/dL (8.5-10.1) 8.2 mg/dL (8.5-10.1) Total Bilirubin 6.0 mg/dL (0.2-1.0) 5.5 mg/dL (0.2-1.0) Aspartate Amino Transf (AST/SGOT) 102 U/L (15-37) 119 U/L (15-37) Alanine Aminotransferase (ALT/SGPT) 167 U/L (16-63) 172 U/L (16-63) Alkaline Phosphatase 257 U/L (46-116) 313 U/L (46-116) Total Protein 5.6 g/dL (6.4-8.2) 5.7 g/dL (6.4-8.2) Albumin 2.2 g/dL (3.4-5.0) 2.1 g/dL (3.4-5.0) Albumin/Globulin Ratio 0.6 (1.0-1.7) 0.6 (1.0-1.7) Lipase 2864 U/L (73-393) Laboratory Tests Test 10/14/18 05:05 Sodium Level 143 mmol/L (136-145) Potassium Level 3.4 mmol/L (3.5-5.1) Chloride Level 108 mmol/L (98-107) Carbon Dioxide Level 25 mmol/L (21-32) Anion Gap 10 (6-14) Blood Urea Nitrogen 13 mg/dL (8-26) Creatinine 0.8 mg/dL (0.7-1.3) Estimated GFR (Cockcroft-Gault) 94.5 BUN/Creatinine Ratio 16 (6-20) Glucose Level 90 mg/dL (70-99) Calcium Level 8.2 mg/dL (8.5-10.1) Total Bilirubin 5.5 mg/dL (0.2-1.0) Aspartate Amino Transf (AST/SGOT) 119 U/L (15-37) Alanine Aminotransferase (ALT/SGPT) 172 U/L (16-63) Alkaline Phosphatase 313 U/L (46-116) Total Protein 5.7 g/dL (6.4-8.2) Albumin 2.1 g/dL (3.4-5.0) Albumin/Globulin Ratio 0.6 (1.0-1.7) Medications Current Medications Fentanyl Citrate (Fentanyl 2ml Vial) 50 mcg 1X ONCE IV Last administered on at 02:29; Start 10/10/18 at 03:00; Stop 10/10/18 at 03:01; Status DC Ondansetron HCl (Zofran) 4 mg 1X ONCE IV Last administered on 10/10/18at 02:29 ; Start 10/10/18 at 03:00; Stop 10/10/18 at 03:01; Status DC Multi-Ingredient Mouthwash/Gargle (Gi Cocktail) 20 ml 1X ONCE SWSW Last administered on 10/10/18at 02:30; Start 10/10/18 at 03:00; Stop 10/10/18 at 03:01 ; Status DC Sodium Chloride 1,000 ml @ 1,000 mls/hr 1X ONCE IV Last administered on at 03:18; Start 10/10/18 at 03:30; Stop 10/10/18 at 04:29; Status DC Iohexol (Omnipaque 300 Mg/ml) 75 ml 1X ONCE IV Last administered on 10/10/18at 03:49; Start 10/10/18 at 04:00; Stop 10/10/18 at 04:01; Status DC Info (CONTRAST GIVEN -- Rx MONITORING) 1 each PRN DAILY PRN MC SEE COMMENTS; Start 10/10/18 at 03:30; Stop 10/12/18 at 03:29; Status DC Ondansetron HCl (Zofran) 4 mg PRN Q8HRS PRN IV NAUSEA/VOMITING 1ST CHOICE; Start 10/10/18 at 04:30; Stop 10/11/18 at 04:29; Status DC Morphine Sulfate (Morphine Sulfate) 4 mg PRN Q2HR PRN IV SEVERE PAIN Last administered on 10/10/18 21:04; Start 10/10/18 at 04:30; Stop 10/11/18 at 04:29 ; Status DC Sodium Chloride 1,000 ml @ 125 mls/hr Q8H IV Last administered on 10/10/18 12 :00; Start 10/10/18 at 05:00; Stop 10/11/18 at 04:59; Status DC Pantoprazole Sodium (PROTONIX VIAL for IV PUSH) 40 mg DAILYAC IVP Last administered on 10/10/18 12:00; Start 10/10/18 at 11:30; Stop 10/10/18 at 14:42 ; Status DC Alprazolam (Xanax) 0.5 mg PRN DAILY PRN PO ANXIETY / AGITATION Last administered on 10/13/18 21:23; Start 10/10/18 at 13:45 Aspirin (Ecotrin) 81 mg DAILY08 PO Last administered on 10/14/18 08:55; Start 10/10/18 at 15:00 Ergocalciferol (Vitamin D2) 50,000 unit WEEKLY PO Last administered on 08:59; Start 10/11/18 at 09:00 Tamsulosin HCl (Flomax) 0.8 mg DAILY PO Last administered on 10/14/18 08:55; Start 10/10/18 at 15:00 Budesonide (Pulmicort) 0.5 mg RTBID NEB Last administered on 10/14/18 08:01; Start 10/10/18 at 20:00 Levothyroxine Sodium (Synthroid) 50 mcg DAILY06 PO Last administered on 06:19; Start 10/10/18 at 15:00 Atorvastatin Calcium (Lipitor) 5 mg QHS PO Last administered on 10/13/18 21:23 ; Start 10/10/18 at 21:00 Multivitamins (Thera M Plus) 1 tab DAILY PO Last administered on 10/14/18 08: 55; Start 10/10/18 at 15:00 Pantoprazole Sodium (Protonix) 40 mg DAILYAC PO Last administered on 10/14/18 06:19; Start 10/11/18 at 07:30 Paroxetine HCl (Paxil) 40 mg DAILY PO Last administered on 10/14/18 08:55; Start 10/10/18 at 15:00 Enoxaparin Sodium (Lovenox 40mg Syringe) 40 mg Q24H SQ Last administered on at 15:47; Start 10/10/18 at 15:00 Sodium Chloride 1,000 ml @ 1,000 mls/hr 1X ONCE IV Last administered on 16:30; Start 10/10/18 at 16:30; Stop 10/10/18 at 17:29; Status DC Multivitamins (Thera M Plus) 1 tab DAILY PO ; Start 10/13/18 at 09:00; Status UNV Folic Acid (Folic Acid) 1 mg DAILY PO Last administered on 10/14/18 08:55; Start 10/13/18 at 09:00 Thiamine HCl 100 mg/Dextrose 51 ml @ 100 mls/hr DAILY IV Last administered on 10/14/18 08:55; Start 10/13/18 at 09:00; Stop 10/17/18 at 09:31 Lorazepam (Ativan) 2 mg Q6H PO Last administered on 10/13/18at 19:00; Start at 13:00; Stop 10/13/18 at 19:01; Status DC Lorazepam (Ativan) 2 mg Q6H PO ; Start 10/13/18 at 12:45; Stop 10/13/18 at 12:45 ; Status DC Potassium Chloride (Klor-Con) 40 meq 1X ONCE PO Last administered on at 15:43; Start 10/13/18 at 13:30; Stop 10/13/18 at 13:31; Status DC Potassium Chloride (Klor-Con) 20 meq DAILYWBKFT PO Last administered on at 08:55; Start 10/14/18 at 08:00 Active Scripts Active Reported Flovent 44MCG Hfa (Fluticasone Propionate) 10.6 Gm Aer.w.adap 2 Puff IH BID PRN Alprazolam 0.5 Mg Tablet 1 Tab PO DAILY PRN Omeprazole 40 Mg Capsule.dr 1 Cap PO HS Odor Free Garlic (Garlic) 100 Mg Tablet 100 Mg PO HS Urinozinc Prostate Formula Cap (Multivits-Min/Hrb [id number]) 1 Each Capsule 2 Each PO DAILY Flomax (Tamsulosin Hcl) 0.4 Mg Cap.er.24h 2 Cap PO DAILY Paroxetine Hcl 40 Mg Tablet 1 Tab PO DAILY Meloxicam 7.5 Mg Tablet 1 Tab PO DAILY Lovastatin 20 Mg Tablet 1 Tab PO DAILY Levothyroxine Sodium 50 Mcg Tablet 1 Tab PO DAILY Vitamin D2 (Ergocalciferol (Vitamin D2)) 50,000 Unit Capsule 1 Cap PO WEEKLY Aspirin Ec (Aspirin) 81 Mg Tablet. 1 Tab PO DAILY Vitals/I & O Vital Sign - Last 24 Hours 10/13/18 10/13/18 10/13/18 10/13/18 15:00 19:54 20:00 20:04 Temp 98.2 97.6 98.2 97.6 Pulse 89 79 Resp 18 16 B/P (MAP) 125/72 (89) 129/67 (87) Pulse Ox 94 95 95 O2 Delivery Nasal Cannula Nasal Cannula Nasal Cannula Nasal Cannula O2 Flow Rate 2.0 2.0 2.0 2.0 10/13/18 10/14/18 10/14/18 10/14/18 23:14 03:10 04:00 07:05 Temp 98.2 97.4 97.9 98.2 97.4 97.9 Pulse 77 79 69 Resp 16 16 20 B/P (MAP) 107/54 (71) 108/60 (76) 155/68 (97) Pulse Ox 93 91 95 O2 Delivery Room Air Room Air Room Air Room Air 10/14/18 10/14/18 10/14/18 08:00 08:01 10:55 Temp 97.7 97.7 Pulse 74 Resp 18 B/P (MAP) 121/68 (85) Pulse Ox 95 94 O2 Delivery Room Air Room Air Room Air O2 Flow Rate 2.0 Intake and Output 10/13/18 10/13/18 10/14/18 14:59 22:59 06:59 Intake Total 0 ml 200 ml Balance 0 ml 200 ml KUMAR TALLEY MD Oct 14, 2018 11:15
--- NOTE | 2018-10-14 12:04 | PDOC ---
Subjective: Subjective: Tolerating PO w/o n/v or abd pain. No diarrhea or constipation. Feels weak and thinks it's because he hasn't had as many snacks as he usually does. Asks if he can go home. Objective: Vital Signs: Vital Signs Date Time Temp Pulse Resp B/P (MAP) Pulse Ox O2 Delivery O2 Flow Rate FiO2 10/14/18 10:55 97.7 74 18 121/68 (85) 94 Room Air 97.7 10/14/18 08:00 2.0 Labs: Laboratory Tests Test 10/14/18 05:05 Sodium Level 143 mmol/L Potassium Level 3.4 mmol/L Chloride Level 108 mmol/L Carbon Dioxide Level 25 mmol/L Anion Gap 10 Blood Urea Nitrogen 13 mg/dL Creatinine 0.8 mg/dL Estimated GFR (Cockcroft-Gault) 94.5 BUN/Creatinine Ratio 16 Glucose Level 90 mg/dL Calcium Level 8.2 mg/dL Total Bilirubin 5.5 mg/dL Aspartate Amino Transf (AST/SGOT) 119 U/L Alanine Aminotransferase (ALT/SGPT) 172 U/L Alkaline Phosphatase 313 U/L Total Protein 5.7 g/dL Albumin 2.1 g/dL Albumin/Globulin Ratio 0.6 Imaging: MRCP 10/13 Bibasilar pleural effusions and adjacent atelectasis are present. Gallbladder is normal. Liver and spleen are normal. Pancreas is normal. Adrenal glands are normal. Small bilateral renal cysts are present. No enlarged upper abdominal lymph nodes. No ascites. Common duct measures 0.7 cm diameter. No suspicious filling defect. No stricture of the common duct. No definite calculi gallbladder. No pericholecystic fluid collection. No pancreatic dilatation or evidence of pancreatic divisum. Impression: Bilateral pleural effusions and adjacent atelectasis at the posterior basilar aspect. No biliary dilatation. PE: GEN: NAD LUNGS: CTAB HEART: RRR ABD: NABS, S/ND/NT NEURO/PSYCH: A & O 3 A/P: Pancreatitis, abnormal LFTs - normal MRCP as above, LFTs remain elevated (AP worse) -- Need to review w/ Dr. Mcfadden. ARIANA SARMIENTO Oct 14, 2018 12:04
--- NOTE | 2018-10-14 14:26 | NUR ---
SW following pt. [facility] cancelled inpatient transfer request made to after RN reported pt's will be following up with outpatient.
--- NOTE | 2018-10-14 14:32 | NUR ---
Pt has right hearing aid and magnet for cochlear implant in place. Patient and report it is working. reports that she is to make an appointment with the outpatient clinic at to have the implant evaluated.
[2018-10-14 15:05] VITALS: BP 131/70
--- NOTE | 2018-10-14 15:19 | NUR ---
Pt was seen and discharge approved by GI. Pt still needs to be seen by Dr Tucker. Pt removed telemetry and is dressed and ready for discharge. Dr Tucker is on the unit and was notified.
--- NOTE | 2018-10-14 15:42 | PDOC3 ---
Discharge Summary Date of Admission: Oct 10, 2018 Date of Discharge: Oct 14, 2018 Follow-Up: 3-5 days Admitting Diagnosis comment: discharge dx Assessment/Plan IMPRESSION: 1. Acute pancreatitis.POSSIBLE PASSED STONE 2. Wall thickening throughout much of the colon suspicious for colitis. 3. The appendix is negative. 4. Pulmonary nodules of the right lung base largest measuring 4 mm. Per Fleischner guidelines in a patient with risk factors for malignancy optional CT follow-up in 12 months would be advised. 5. Sludge noted in the gallbladder with gallbladder wall thickening possible cholecystitis. 6.GERD 7.BPH 8.HYPERLIPIDEMIA 9.transaminitis, IMPROVING 10. ALCOHOL ABUSE 11. ALCOHOL WITHDRAWAL symptoms, confusion earlier today 10/13 12. Cholestasis worsening. bili higher Bilateral pleural effusions and adjacent atelectasis at the posterior basilar aspect. No biliary dilatation. ON MRCP plan gi following ? home per GI today propeck ok with d/c TODAY per XIN ramirez surgery consult dvt prophylaxis iv fluid support iv protonix trial of liquid diet and monitor ALCOHOL WITHDRAWAL PRECAUTIONS HOME MEDS MRCP OK 36 d/c planning time MIN PT EXAM, CHART REVIEW, > 50% of time spent with exam, chart review, pt care coordination Vitals Vitals Vital Signs Date Time Temp Pulse Resp B/P (MAP) Pulse Ox O2 Delivery O2 Flow Rate FiO2 10/14/18 10:55 97.7 74 18 121/68 (85) 94 Room Air 97.7 10/14/18 08:00 2.0 Physical Exam General: Alert, Oriented X3, Cooperative, No acute distress Heart: Regular rate, Normal S1, Normal S2, No murmurs Lungs: Clear Abdomen: Soft, No tenderness Extremities: No clubbing, No cyanosis Skin: No rashes, No breakdown Labs LABS Examination: MRCP WO CONTRAST History: ELEVATED LFTs, NO SX HX, NO PRIORS, UNABLE TO OBTAIN CORONAL VIEWS DUE TO MRI CONDITIONAL COCHLEAR IMPLANT BRYCE LIMITATIONS Comparison/Correlation: CT abdomen and pelvis with IV contrast 10/10/2018, right upper quadrant ultrasound exam 10/10/2018 Findings: Multiplanar, multisequence images of the abdomen were obtained according to MRCP protocol. Thick slab images were provided. MIP images provided. Motion limits evaluation of thick slab images. Coronal images could not be obtained due to the patient having a MRI conditional cochlear implant. Bibasilar pleural effusions and adjacent atelectasis are present. Gallbladder is normal. Liver and spleen are normal. Pancreas is normal. Adrenal glands are normal. Small bilateral renal cysts are present. No enlarged upper abdominal lymph nodes. No ascites. Common duct measures 0.7 cm diameter. No suspicious filling defect. No stricture of the common duct. No definite calculi gallbladder. No pericholecystic fluid collection. No pancreatic dilatation or evidence of pancreatic divisum. Impression: Bilateral pleural effusions and adjacent atelectasis at the posterior basilar aspect. No biliary dilatation. FINAL DIAGNOSIS Problems Medical Problems: (1) Acute pancreatitis Status: Acute (2) Colitis Status: Acute Brief Hospital Course Mr. Nguyen is a 72 old [sex] who presented with [ ABDOMINAL PAIN/ TRANSAMINITIS] CONDITION AT DISCHARGE: Improved Discharge Medications Current Medications Fentanyl Citrate (Fentanyl 2ml Vial) 50 mcg 1X ONCE IV Last administered on at 02:29; Start 10/10/18 at 03:00; Stop 10/10/18 at 03:01; Status DC Ondansetron HCl (Zofran) 4 mg 1X ONCE IV Last administered on 10/10/18at 02:29 ; Start 10/10/18 at 03:00; Stop 10/10/18 at 03:01; Status DC Multi-Ingredient Mouthwash/Gargle (Gi Cocktail) 20 ml 1X ONCE SWSW Last administered on 10/10/18at 02:30; Start 10/10/18 at 03:00; Stop 10/10/18 at 03:01 ; Status DC Sodium Chloride 1,000 ml @ 1,000 mls/hr 1X ONCE IV Last administered on at 03:18; Start 10/10/18 at 03:30; Stop 10/10/18 at 04:29; Status DC Iohexol (Omnipaque 300 Mg/ml) 75 ml 1X ONCE IV Last administered on 10/10/18at 03:49; Start 10/10/18 at 04:00; Stop 10/10/18 at 04:01; Status DC Info (CONTRAST GIVEN -- Rx MONITORING) 1 each PRN DAILY PRN MC SEE COMMENTS; Start 10/10/18 at 03:30; Stop 10/12/18 at 03:29; Status DC Ondansetron HCl (Zofran) 4 mg PRN Q8HRS PRN IV NAUSEA/VOMITING 1ST CHOICE; Start 10/10/18 at 04:30; Stop 10/11/18 at 04:29; Status DC Morphine Sulfate (Morphine Sulfate) 4 mg PRN Q2HR PRN IV SEVERE PAIN Last administered on 10/10/18 21:04; Start 10/10/18 at 04:30; Stop 10/11/18 at 04:29 ; Status DC Sodium Chloride 1,000 ml @ 125 mls/hr Q8H IV Last administered on 10/10/18 12 :00; Start 10/10/18 at 05:00; Stop 10/11/18 at 04:59; Status DC Pantoprazole Sodium (PROTONIX VIAL for IV PUSH) 40 mg DAILYAC IVP Last administered on 10/10/18 12:00; Start 10/10/18 at 11:30; Stop 10/10/18 at 14:42 ; Status DC Alprazolam (Xanax) 0.5 mg PRN DAILY PRN PO ANXIETY / AGITATION Last administered on 10/13/18 21:23; Start 10/10/18 at 13:45 Aspirin (Ecotrin) 81 mg DAILY08 PO Last administered on 10/14/18 08:55; Start 10/10/18 at 15:00 Ergocalciferol (Vitamin D2) 50,000 unit WEEKLY PO Last administered on 08:59; Start 10/11/18 at 09:00 Tamsulosin HCl (Flomax) 0.8 mg DAILY PO Last administered on 10/14/18 08:55; Start 10/10/18 at 15:00 Budesonide (Pulmicort) 0.5 mg RTBID NEB Last administered on 10/14/18 08:01; Start 10/10/18 at 20:00 Levothyroxine Sodium (Synthroid) 50 mcg DAILY06 PO Last administered on 06:19; Start 10/10/18 at 15:00 Atorvastatin Calcium (Lipitor) 5 mg QHS PO Last administered on 10/13/18 21:23 ; Start 10/10/18 at 21:00 Multivitamins (Thera M Plus) 1 tab DAILY PO Last administered on 10/14/18 08: 55; Start 10/10/18 at 15:00 Pantoprazole Sodium (Protonix) 40 mg DAILYAC PO Last administered on 10/14/18 06:19; Start 10/11/18 at 07:30 Paroxetine HCl (Paxil) 40 mg DAILY PO Last administered on 10/14/18at 08:55; Start 10/10/18 at 15:00 Enoxaparin Sodium (Lovenox 40mg Syringe) 40 mg Q24H SQ Last administered on at 15:47; Start 10/10/18 at 15:00 Sodium Chloride 1,000 ml @ 1,000 mls/hr 1X ONCE IV Last administered on at 16:30; Start 10/10/18 at 16:30; Stop 10/10/18 at 17:29; Status DC Multivitamins (Thera M Plus) 1 tab DAILY PO ; Start 10/13/18 at 09:00; Status UNV Folic Acid (Folic Acid) 1 mg DAILY PO Last administered on 10/14/18at 08:55; Start 10/13/18 at 09:00 Thiamine HCl 100 mg/Dextrose 51 ml @ 100 mls/hr DAILY IV Last administered on 10/14/18at 08:55; Start 10/13/18 at 09:00; Stop 10/17/18 at 09:31 Lorazepam (Ativan) 2 mg Q6H PO Last administered on 10/13/18at 19:00; Start at 13:00; Stop 10/13/18 at 19:01; Status DC Lorazepam (Ativan) 2 mg Q6H PO ; Start 10/13/18 at 12:45; Stop 10/13/18 at 12:45 ; Status DC Potassium Chloride (Klor-Con) 40 meq 1X ONCE PO Last administered on at 15:43; Start 10/13/18 at 13:30; Stop 10/13/18 at 13:31; Status DC Potassium Chloride (Klor-Con) 20 meq DAILYWBKFT PO Last administered on at 08:55; Start 10/14/18 at 08:00 Active Scripts Active Reported Flovent 44MCG Hfa (Fluticasone Propionate) 10.6 Gm Aer.w.adap 2 Puff IH BID PRN Alprazolam 0.5 Mg Tablet 1 Tab PO DAILY PRN Omeprazole 40 Mg Capsule.dr 1 Cap PO HS Odor Free Garlic (Garlic) 100 Mg Tablet 100 Mg PO HS Urinozinc Prostate Formula Cap (Multivits-Min/Hrb Cb121) 1 Each Capsule 2 Each PO DAILY Flomax (Tamsulosin Hcl) 0.4 Mg Cap.er.24h 2 Cap PO DAILY Paroxetine Hcl 40 Mg Tablet 1 Tab PO DAILY Meloxicam 7.5 Mg Tablet 1 Tab PO DAILY Lovastatin 20 Mg Tablet 1 Tab PO DAILY Levothyroxine Sodium 50 Mcg Tablet 1 Tab PO DAILY Vitamin D2 (Ergocalciferol (Vitamin D2)) 50,000 Unit Capsule 1 Cap PO WEEKLY Aspirin Ec (Aspirin) 81 Mg Tablet.dr 1 Tab PO DAILY Vital Signs Vital Signs Date Time Temp Pulse Resp B/P (MAP) Pulse Ox O2 Delivery O2 Flow Rate FiO2 10/14/18 15:05 97.9 76 22 131/70 (90) 95 Room Air 97.9 10/14/18 08:00 2.0 Labs Laboratory Tests Test 10/12/18 20:15 10/13/18 08:00 10/14/18 05:05 Urine Collection Type Unknown Urine Color [place] Urine Clarity Clear Urine pH 6.5 Urine Specific [place] 1.015 Urine Protein 30 mg/dL (NEG-TRACE) Urine Glucose (UA) Negative mg/dL (NEG) Urine Ketones (Stick) Negative mg/dL (NEG) Urine Blood Negative (NEG) Urine Nitrite Negative (NEG) Urine Bilirubin Large (NEG) Urine Urobilinogen Dipstick 0.2 mg/dL (0.2 mg/dL) Urine Leukocyte Esterase Negative (NEG) Urine RBC Occ /HPF (0-2) Urine WBC Occ /HPF (0-4) Urine Squamous Epithelial Cells Few /LPF Urine Bacteria 0 /HPF (0-FEW) Urine Mucus Slight /LPF White Blood Count 8.7 x10^3/uL (4.0-11.0) Red Blood Count 4.04 x10^6/uL (4.30-5.70) Hemoglobin 12.9 g/dL (13.0-17.5) Hematocrit 38.4 % (39.0-53.0) Mean Corpuscular Volume 95 fL (79-100) Mean Corpuscular Hemoglobin 32 pg (25-35) Mean Corpuscular Hemoglobin Concent 34 g/dL (31-37) Red Cell Distribution Width 13.2 % (11.5-14.5) Platelet Count 168 x10^3/uL (140-400) Neutrophils (%) (Auto) 80 % (31-73) Lymphocytes (%) (Auto) 5 % (24-48) Monocytes (%) (Auto) 12 % (0-9) Eosinophils (%) (Auto) 3 % (0-3) Basophils (%) (Auto) 0 % (0-3) Neutrophils # (Auto) 6.9 x10^3uL (1.8-7.7) Lymphocytes # (Auto) 0.4 x10^3/uL (1.0-4.8) Monocytes # (Auto) 1.0 x10^3/uL (0.0-1.1) Eosinophils # (Auto) 0.3 x10^3/uL (0.0-0.7) Basophils # (Auto) 0.0 x10^3/uL (0.0-0.2) Sodium Level 142 mmol/L (136-145) 143 mmol/L (136-145) Potassium Level 3.4 mmol/L (3.5-5.1) 3.4 mmol/L (3.5-5.1) Chloride Level 107 mmol/L (98-107) 108 mmol/L (98-107) Carbon Dioxide Level 25 mmol/L (21-32) 25 mmol/L (21-32) Anion Gap 10 (6-14) 10 (6-14) Blood Urea Nitrogen 10 mg/dL (8-26) 13 mg/dL (8-26) Creatinine 0.9 mg/dL (0.7-1.3) 0.8 mg/dL (0.7-1.3) Estimated GFR (Cockcroft-Gault) 82.5 94.5 BUN/Creatinine Ratio 11 (6-20) 16 (6-20) Glucose Level 99 mg/dL (70-99) 90 mg/dL (70-99) Calcium Level 8.3 mg/dL (8.5-10.1) 8.2 mg/dL (8.5-10.1) Total Bilirubin 6.0 mg/dL (0.2-1.0) 5.5 mg/dL (0.2-1.0) Aspartate Amino Transf (AST/SGOT) 102 U/L (15-37) 119 U/L (15-37) Alanine Aminotransferase (ALT/SGPT) 167 U/L (16-63) 172 U/L (16-63) Alkaline Phosphatase 257 U/L (46-116) 313 U/L (46-116) Total Protein 5.6 g/dL (6.4-8.2) 5.7 g/dL (6.4-8.2) Albumin 2.2 g/dL (3.4-5.0) 2.1 g/dL (3.4-5.0) Albumin/Globulin Ratio 0.6 (1.0-1.7) 0.6 (1.0-1.7) Lipase 2864 U/L (73-393) Laboratory Tests Test 10/14/18 05:05 Sodium Level 143 mmol/L (136-145) Potassium Level 3.4 mmol/L (3.5-5.1) Chloride Level 108 mmol/L (98-107) Carbon Dioxide Level 25 mmol/L (21-32) Anion Gap 10 (6-14) Blood Urea Nitrogen 13 mg/dL (8-26) Creatinine 0.8 mg/dL (0.7-1.3) Estimated GFR (Cockcroft-Gault) 94.5 BUN/Creatinine Ratio 16 (6-20) Glucose Level 90 mg/dL (70-99) Calcium Level 8.2 mg/dL (8.5-10.1) Total Bilirubin 5.5 mg/dL (0.2-1.0) Aspartate Amino Transf (AST/SGOT) 119 U/L (15-37) Alanine Aminotransferase (ALT/SGPT) 172 U/L (16-63) Alkaline Phosphatase 313 U/L (46-116) Total Protein 5.7 g/dL (6.4-8.2) Albumin 2.1 g/dL (3.4-5.0) Albumin/Globulin Ratio 0.6 (1.0-1.7) Allergies Allergies Coded Allergies Type Severity Reaction Last Updated Verified bee venom protein (honey bee) Allergy Intermediate ITCHING, BLOTCHY 10/14/18 Yes venom-wasp Allergy Intermediate 10/14/18 Yes Disposition/Orders: D/C to Home (D/C PLANNING 36 MIN) Patient Instructions D/C PLANNING 36 MIN KUMAR TALLEY MD Oct 14, 2018 15:42
[2018-10-14] MEDS ORDERED: THIA100T22 PO (15:45)
[2018-10-14] MEDS ORDERED: FOLI1TAB16 PO (15:45)
--- NOTE | 2018-10-14 15:49 | DISCH ---
DISCHARGE INSTRUCTIONS Condition on Discharge Condition on Discharge: Guarded Activity After Discharge Activity Instructions for Disc: Activity as tolerated Lifting Instructions after Dis: No heavy lifting, No pulling or pushing Exercise Instruction after Dis: Walk 10 min, 3 x per day Driving Instructions after Dis: Do not drive Diet after Discharge Diet after Discharge: Cardiac Checks after Discharge Checks after discharge: Check blood press - daily (SEE PCP NEXT WEEK, BLOOD WORK) KUMAR TALLEY MD Oct 14, 2018 15:49
--- NOTE | 2018-10-14 16:10 | NUR ---
Pt discharged to home with . Reviewed discharge instructions including the need to follow up with his primary doctor in one week for repeat liver function labs. Pt and verbalized understanding.
== END 2018-10-14 16:10 | disposition home or self-care (01) | DRG 438 ==
LOC: ER 01:58 → 6 SOUTH 02:00
PROVIDERS: ADMIT Family Medicine; ATTEND Family Medicine
DX: K85.90 Acute pancreatitis without necrosis or infection, unspecified (principal); R65.11 Systemic inflammatory response syndrome (SIRS) of non-infectious origin with acute organ dysfunction; K83.1 Obstruction of bile duct; F10.239 Alcohol dependence with withdrawal, unspecified; J90 Pleural effusion, not elsewhere classified; J98.11 Atelectasis; K52.9 Noninfective gastroenteritis and colitis, unspecified; F32.9 Major depressive disorder, single episode, unspecified; F41.9 Anxiety disorder, unspecified; G89.29 Other chronic pain; M19.90 Unspecified osteoarthritis, unspecified site; D64.9 Anemia, unspecified; E78.00 Pure hypercholesterolemia, unspecified; E78.5 Hyperlipidemia, unspecified; J44.9 Chronic obstructive pulmonary disease, unspecified; K21.9 Gastro-esophageal reflux disease without esophagitis; Z79.899 Other long term (current) drug therapy; N40.0 Benign prostatic hyperplasia without lower urinary tract symptoms; Z82.49 Family history of ischemic heart disease and other diseases of the circulatory system; Z87.891 Personal history of nicotine dependence; Z91.030 Bee allergy status; K81.9 Cholecystitis, unspecified
CPT/HCPCS: 36415; 71045; 74177; 74181; 76705; 80053; 80061; 80076; 81001; 83690; 83880; 84484; 85007; 85025; 85027; 85520; 85610; 86705; 86709; 86803; 87340; 93005; 94640; 94760; 96361; 96374; 96375; C9113; J1650; J2270; J2405; J3010; J7030; J7626; Q9967; 99285-25

== ENCOUNTER → 2018-11-04 | Outpatient (CLI) | payer MEDICARE, OTHER ==
[2018-10-14 15:05] VITALS: BP 131/70
[~2018-11-04] MED LIST changes: +CONTRAST GIVEN. MC PRN; +FLUT10.6 IH; +FOLI1TAB16 PO; +GARL100T2 PO; +IOHEXOL 240 MG/ML 50ML VIAL. PO ONE; +IOHEXOL 300 MG/ML 100ML VIAL. IV ONE; +MULT1CAP12 PO; +OMEP40CA5 PO; +TAMS0.4C97 PO; +THIA100T22 PO
--- NOTE | 2018-11-04 08:21 | RAD ---
Abdominal ultrasound, 11/04/2018: HISTORY: Pancreatitis, cholecystitis The gallbladder is within normal limits in size. There is no sonographic evidence of cholelithiasis. The gallbladder wall is at the upper limits of normal in thickness measuring 3-4 mm. The common hepatic duct measures 3 mm which is within normal limits. There is no evidence of a hepatic mass. The spleen is within normal limits in size. No renal abnormality is detected. The pancreas and much of the central retroperitoneum including the aorta and inferior vena cava were obscured by overlying bowel. No free fluid is evident in the abdomen. IMPRESSION: 1. Minimal gallbladder wall thickening which can be due to a variety of causes including liver disease, renal disease, hypoproteinemia or cholecystitis. 2. No evidence of cholelithiasis. 3. Obscuration of the pancreas and central retroperitoneum by overlying bowel Electronically signed by: yKrie Garcia MD (11/04/2018 8:18 AM) [facility]
--- NOTE | 2018-11-04 16:44 | RAD ---
CT of the abdomen and pelvis with contrast, 11/04/2017: HISTORY: Pancreatitis, cholecystitis Multidetector CT imaging was performed following oral and IV administration of contrast. Comparison is made to a study from 10/10/2018. Several tiny subpleural nodules are present in both lower lobes and appear unchanged. There is linear atelectasis and/or scarring in the lung bases. No hepatic abnormality is evident. No dense gallstones are seen. The gallbladder dougherty are not thickened and there is no pericholecystic edema. The pancreas is unremarkable. Previously seen mild peripancreatic edema has resolved. The spleen is of normal size. There is a tiny nonobstructing intrarenal calculus on the right. A tiny low-density lesion in the upper pole the left kidney is too small to definitively characterize but is probably a cyst. The kidneys show no evidence of obstruction. No adrenal abnormality is detected. Aortoiliac calcific plaquing is present. No abdominal or pelvic adenopathy is seen. There is mild diffuse bladder wall thickening. The prostate gland measures 4 cm in width. Scattered colonic diverticula are present. No paracolonic inflammatory process is seen. The bowel loops are not dilated. No free air or free fluid is evident in the abdomen or pelvis. Moderate degenerative change is evident in the lower lumbar spine. IMPRESSION: 1. Peripancreatic inflammation inflammatory changes have resolved. 2. Colonic diverticulosis. 3. Mild diffuse bladder wall thickening may reflect chronic bladder outlet obstruction or cystitis. Clinical correlation suggested. 4. Tiny nonobstructing right intrarenal calculus. 5. Unchanged tiny subpleural basilar pulmonary nodules. PQRS Compliance Statement: One or more of the following individualized dose reduction techniques were utilized for this examination: 1. Automated exposure control 2. Adjustment of the mA and/or kV according to patient size 3. Use of iterative reconstruction technique Electronically signed by: Kyrie Garcia MD (11/04/2018 4:41 PM) [facility]
== END | disposition home or self-care (01) ==
LOC: US 06:44
PROVIDERS: ATTEND Internal Medicine Gastroenterology
DX: J98.11 Atelectasis (principal); K57.30 Diverticulosis of large intestine without perforation or abscess without bleeding; N20.0 Calculus of kidney; N28.9 Disorder of kidney and ureter, unspecified; K82.8 Other specified diseases of gallbladder; R91.8 Other nonspecific abnormal finding of lung field; K85.90 Acute pancreatitis without necrosis or infection, unspecified; K81.9 Cholecystitis, unspecified
CPT/HCPCS: 74177; 76700; Q9966; Q9967

== ENCOUNTER 2021-02-11 13:11 | Emergency (ER) | payer MEDICARE, OTHER ==
[~2021-02-11] VITALS: Ht 177.8 cm; Wt 67.3 kg
[~2021-02-11 13:11] MED LIST changes: -ASPI-612 PO; +ASPI-886 PO; +CLON-77 PO; -CLON0.5T11 PO; -CONTRAST GIVEN. MC PRN; -IOHEXOL 240 MG/ML 50ML VIAL. PO ONE; -IOHEXOL 300 MG/ML 100ML VIAL. IV ONE; -OMEP40CA5 PO; +OMEP40CA7 PO
[2021-02-11] MEDS ORDERED: DEXAMETHASONE SOD PHOS 20 MG/5 ML VIAL. IV ONE (15:00)
[2021-02-11] MEDS ORDERED: FAMOTIDINE 20 MG/2 ML VIAL IVP ONE (15:00)
[2021-02-11] MEDS ORDERED: diphenhydrAMINE 50 MG/ML VIAL IVP ONE (15:00)
--- NOTE | 2021-02-11 15:31 | PHYS DOC ---
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 States he is allergic to wasp and Bee venom. He stated he used his EpiPen. He was stung once on the right forearm, right ear, left forearm, 2 on the back of the head, 1 on the left elbow, 1 on the back right flank, 1 at the waistline at the belt on the right side. This happened at 12:17 PM. Patient's right ear is reddened and very swollen. He states this only thing is bothering him. Patient denies wheezing, throat tightness, throat itching or mouth itching, facial swelling, chest pain, shortness of breath, dizziness, headache, vision change, abdominal pain, nausea, vomiting. 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 [] Eyes: Denies change in visual acuity. [] HENT: Denies nasal congestion or sore throat. [] Respiratory: Denies cough or shortness of breath. [] Cardiovascular: Denies chest pain or edema. [] GI: Denies abdominal pain, nausea, vomiting, bloody stools or diarrhea. [] : Denies dysuria. [] Musculoskeletal: Denies back pain or joint pain. [] Integument: Denies rash. + Several bee stings [] Neurologic: Denies headache, focal weakness or sensory changes. [] Endocrine: Denies polyuria or polydipsia. [] Lymphatic: Denies swollen glands. [] Psychiatric: Denies depression or anxiety. [] (ASIYA FOX APRN) Heart Score: C/O Chest Pain: No Risk Factors: Risk Factors: DM, Current or recent (<one month) smoker, HTN, HLP, family history of CAD, obesity. Risk Scores: Score 0 - 3: 2.5% MACE over next 6 weeks - Discharge Home Score 4 - 6: 20.3% MACE over next 6 weeks - Admit for Clinical Observation Score 7 - 10: 72.7% MACE over next 6 weeks - Early Invasive Strategies (ASIYA FOX APRN) Current Medications: Current Medications Medications (Trade) Dose Ordered Sig/Morro Start Time Stop Time Status Last Admin Dose Admin Dexamethasone Sodium Phosphate (Decadron) 10 mg 1X ONCE 02/11/21 15:00 02/11/21 15:01 DC 02/11/21 14:48 10 MG Diphenhydramine HCl (Benadryl) 25 mg 1X ONCE 02/11/21 15:00 02/11/21 15:01 DC 02/11/21 14:48 25 MG Famotidine (Pepcid Vial) 20 mg 1X ONCE 02/11/21 15:00 02/11/21 15:01 DC 02/11/21 14:48 20 MG (ASIYA FOX APRN) Allergies: Allergies: Allergies Coded Allergies Type Severity Reaction Last Updated Verified bee venom protein (honey bee) Allergy Intermediate ITCHING, BLOTCHY 10/14/18 Yes venom-wasp Allergy Intermediate 10/14/18 Yes (ASIYA FOX APRN) Physical Exam: PE: Constitutional: Well developed, well nourished, no acute distress, non-toxic appearance. [] HENT: Normocephalic, atraumatic, bilateral external ears normal, oropharynx moist, no oral exudates, nose normal. [] Eyes: PERRLA, EOMI, conjunctiva normal, no discharge. [] Neck: Normal range of motion, no tenderness, supple, no stridor. [] Cardiovascular:Heart rate regular rhythm, no murmur [] Lungs & Thorax: Bilateral breath sounds clear to auscultation [] Abdomen: Bowel sounds normal, soft, no tenderness, no masses, no pulsatile masses. [] Skin: Warm, dry, no erythema, no rash. Several hornet sting wounds. See HPI. Redness and swelling to the right top of the ear with tenderness. [] Back: No tenderness, no CVA tenderness. [] Extremities: No tenderness, no cyanosis, no clubbing, ROM intact, no edema. [] Neurologic: Alert and oriented X 3, normal motor function, normal sensory function, no focal deficits noted. [] Psychologic: Affect normal, judgement normal, mood normal. [] (ASIYA FOX APRN) Current Patient Data: Vital Signs: Vital Signs Date Time Temp Pulse Resp B/P (MAP) Pulse Ox O2 Delivery O2 Flow Rate FiO2 02/11/21 13:30 98.0 75 18 113/59 (90) 93 Room Air 98.0 (ASIYA FOX APRN) EKG: EKG: [] (ASIYA FOX APRN) Radiology/Procedures: Radiology/Procedures: [] Impression: [facility] [address] [place], [place] [id number] IMAGING REPORT Signed PATIENT: MAGI VIERA ACCOUNT: [id number] : 1945 LOCATION: ER AGE: 75 SEX: M EXAM STATUS: REG ER ORD. PHYSICIAN: ASIYA FOX APRN REASON: low 02 PROCEDURE: PORTABLE CHEST 1V Chest single view portable at 1532: Reason for examination: Low O2 saturation. Comparison is made to previous study dated 10/10/2018. The heart size is normal. Mediastinum is unremarkable. Lung jaime continue show calcified nodules just below the minor fissure in the right lung field which are unchanged. No acute infiltrates or pleural effusions are seen.. No acute bony abnormalities are seen. Impression: No acute cardiopulmonary disease. Electronically signed by: Julia Turner MD (02/11/2021 3:56 PM) [facility] DICTATED and SIGNED BY: JULIA TURNER MD DATE: 02/11/21 [id number] (ASIYA FOX APRN) Course & Med Decision Making: Course & Med Decision Making Pertinent Labs and Imaging studies reviewed. (See chart for details) See HPI. Alert and oriented x4. Ambulatory steady gait. Speaks in full clear sentences. Lungs are clear to auscultation all lobes. Vital signs are within normal limits. Patient states he does have COPD and he only gets short of breath when he is outside and working because of allergies. He is 90% on room air and was placed on 2 L of oxygen. Patient states that his is normal and he does not feel short of breath and he does not have any current chest pain. Patient is given IV dexamethasone, Pepcid, Benadryl. Patient remains stable and in no distress. [] (ASIYA FOX APRN) Course & Med Decision Making Vital Signs Date Time Temp Pulse Resp B/P (MAP) Pulse Ox O2 Delivery O2 Flow Rate FiO2 02/11/21 17:25 61 106/58 (74) 95 Room Air 02/11/21 16:58 63 100/53 (69) 96 Room Air 02/11/21 16:28 63 109/56 (73) 97 Nasal Cannula 1.0 02/11/21 15:58 66 97 Nasal Cannula 1.0 02/11/21 15:28 61 100/54 (69) 97 Nasal Cannula 1.0 02/11/21 15:08 69 92/53 (66) 97 Nasal Cannula 1.0 02/11/21 14:48 70 100/58 (72) 95 Nasal Cannula 1.0 02/11/21 14:28 71 99/56 (70) 93 Nasal Cannula 1.0 02/11/21 13:48 77 103/59 (74) 95 Nasal Cannula 1.0 02/11/21 13:30 98.0 75 18 113/59 (90) 93 Room Air 98.0 I have participated in the care of this patient and I have reviewed and agree with all pertinent clinical information above including history, exam, and recommendations. Patient was observed after his self-administered epinephrine, stable vitals as above, no signs of anaphylaxis upon discharge. Jaguar Brandon DO (JAGUAR BRANDON DO) Jaki Disclaimer: Jaki Disclaimer: This electronic medical record was generated, in whole or in part, using a voice recognition dictation system. (ASIYA FOX APRN) Departure Departure Impression: Primary Impression: Hornet sting Qualified Codes: T63.451A - Toxic effect of venom of hornets, accidental (unintentional), initial encounter Disposition: HOME / SELF CARE / HOMELESS Condition: STABLE Referrals: ELEUTERIO JAQUEZ (PCP) Patient Instructions: Anaphylactic Reaction, Bee, Wasp, or Hornet Sting Additional Instructions: Follow up with primary care provider. Take medication as prescribed and with food. If you begin having shortness of breath or facial swelling you need to call 911. Scripts Diphenhydramine Hcl (BENADRYL ALLERGY) 25 Mg Tablet 1 TAB PO BID for 3 Days, #6 TAB 0 Refills Prov: ASIYA FOX APRN 02/11/21 Famotidine (PEPCID) 20 Mg Tablet 20 MG PO BID, #6 TAB Prov: ASIYA FOX APRN 02/11/21 Methylprednisolone (MEDROL) 4 Mg Tab.ds.pk 1 PKG PO UD, #1 PKG START TOMORROW 02/12 Prov: ASIYA FOX APRN 02/11/21 ASIYA FOX APRN Feb 11, 2021 15:31 JAGUAR BRANDON DO Feb 12, 2021 06:34
--- NOTE | 2021-02-11 15:59 | RAD ---
Chest single view portable at 1532: Reason for examination: Low O2 saturation. Comparison is made to previous study dated 10/10/2018. The heart size is normal. Mediastinum is unremarkable. Lung jaime continue show calcified nodules ju st below the minor fissure in the right lung field which are unchanged. No acute infiltrates or pleur al effusions are seen.. No acute bony abnormalities are seen. Impression: No acute cardiopulmonary disease. Electronically signed by: Nesha Fan MD (02/11/2021 3:56 PM) [facility]
[2021-02-11] MEDS ORDERED: DIPH25TA64 PO (16:54)
[2021-02-11] MEDS ORDERED: FAMO-63 PO (16:54)
[2021-02-11] MEDS ORDERED: METH4TAB2 PO (16:54)
[2021-02-11 17:25] VITALS: BP 106/58
== END 2021-02-11 17:25 | disposition home or self-care (01) ==
LOC: ER 13:11
DX: T63.451A Toxic effect of venom of hornets, accidental (unintentional), initial encounter (principal); K21.9 Gastro-esophageal reflux disease without esophagitis; E78.00 Pure hypercholesterolemia, unspecified; J45.909 Unspecified asthma, uncomplicated; Z91.030 Bee allergy status; Y92.89 Other specified places as the place of occurrence of the external cause
CPT/HCPCS: 71045; 96374; 96375; 99285; J1100; J1200; J3490

== ENCOUNTER 2021-11-26 17:39 | Inpatient (IN) | payer MEDICARE, OTHER ==
[~2021-11-26] VITALS: Ht 177.8 cm; Wt 73.8 kg
[~2021-11-26 17:39] MED LIST changes: +DIPH25TA64 PO; +FAMO-63 PO; +METH4TAB2 PO
[2021-11-26] MEDS ORDERED: fentaNYL PF VIAL 100 MCG/2 ML VIAL IVP ONE (18:30)
[2021-11-26] MEDS ORDERED: IV NORMAL SALINE 500ML BAG 500 ML IV ONE (18:30)
[2021-11-26] MEDS ORDERED: ONDANSETRON PF 4 MG/2 ML VIAL. IVP ONE (18:30)
--- NOTE | 2021-11-26 18:32 | PHYS DOC ---
Past Medical History Past Medical History: Anxiety, Asthma, Depression, GERD, High Cholesterol, Other Additional Past Medical Histor: CHRONIC FOOT PAIN, [place], cataracts, BPH Past Surgical History: Tonsillectomy, Other Additional Past Surgical Histo: BILAT CATARACT REMOVAL, CHOCLEAR EAR Smoking Status: Never Smoker Alcohol Use: None Drug Use: None General Adult EDM: Chief Complaint: ABDOMINAL PAIN HPI: HPI: Patient is a 76 year old male who presents with abdominal pain that is constant and gets worse after eating with constant nausea, lack of appetite for the last 4 days. He denies fever, chest pain, shortness of breath, vomiting, diarrhea, h eadache, dizziness, numbness or tingling, vision change, rash, cough. Rates his pain at a 9 out of 10. He states today he took Pepcid, Tylenol and Pepto- Bismol. He states that it does not help. History of high cholesterol, GERD, depression, anxiety, asthma, chronic foot pain, hard of hearing, cochlear implant, cataracts and BPH. Review of Systems: Review of Systems: Constitutional: Denies fever or chills. [] Eyes: Denies change in visual acuity. [] HENT: Denies nasal congestion or sore throat. [] Respiratory: Denies cough or shortness of breath. [] Cardiovascular: Denies chest pain or edema. [] GI: + abdominal pain, +nausea, denies vomiting, bloody stools or diarrhea. [] : Denies dysuria. [] Musculoskeletal: Denies back pain or joint pain. [] Integument: Denies rash. [] Neurologic: Denies headache, focal weakness or sensory changes. [] Endocrine: Denies polyuria or polydipsia. [] Lymphatic: Denies swollen glands. [] Psychiatric: Denies depression or anxiety. [] Heart Score: C/O Chest Pain: No HEART Score for Chest Pain: HEART Score for Chest Pain Response (Comments) Value History Slighlty/Non-Suspicious 0 ECG Normal 0 Age > 65 2 Risk Factors 1 or 2 Risk Factors 1 Troponin < Normal Limit 0 Total 3 Allergies: Allergies: Allergies Coded Allergies Type Severity Reaction Last Updated Verified bee venom protein (honey bee) Allergy Intermediate ITCHING, BLOTCHY 10/14/18 Yes venom-wasp Allergy Intermediate 10/14/18 Yes Physical Exam: PE: Constitutional: Well developed, well nourished, no acute distress, non-toxic appearance. [] HENT: Normocephalic, atraumatic, bilateral external ears normal, oropharynx moist, no oral exudates, nose normal. [] Eyes: PERRLA, EOMI, conjunctiva normal, no discharge. [] Neck: Normal range of motion, no tenderness, supple, no stridor. [] Cardiovascular:Heart rate regular rhythm, no murmur [] Lungs & Thorax: Bilateral breath sounds clear to auscultation [] Abdomen: Bowel sounds normal, soft, generalized tenderness, no masses, no pulsatile masses. [] Skin: Warm, dry, no erythema, no rash. [] Back: No tenderness, no CVA tenderness. [] Extremities: No tenderness, no cyanosis, no clubbing, ROM intact, no edema. [] Neurologic: Alert and oriented X 3, normal motor function, normal sensory function, no focal deficits noted. [] Psychologic: Affect normal, judgement normal, mood normal. [] Current Patient Data: Vital Signs: Vital Signs Date Time Temp Pulse Resp B/P (MAP) Pulse Ox O2 Delivery O2 Flow Rate FiO2 11/26/21 18:16 99.1 80 18 119/49 (72 96 Room Air 99.1 EKG: EK and read by Dr Zamora as Sinus Rhythm and no STEMI Radiology/Procedures: Radiology/Procedures: [] Impression: [facility] [address] [place] [address] IMAGING REPORT Signed PATIENT: MAGI VIERA ACCOUNT: [id number] : 1945 LOCATION: ER AGE: 76 SEX: M EXAM STATUS: REG ER ORD. PHYSICIAN: ASIYA FOX APRN REASON: ABD TENDERNESS, PAIN, NAUSEA PROCEDURE: CT ABD PELV W/ IV CONTRST ONLY Examination: CT of the abdomen pelvis with IV contrast HISTORY: History of abdominal tenderness, nausea COMPARISON: 11/04/2018 TECHNIQUE: Axial CT images of the abdomen pelvis were performed with IV contrast. Coronal and sagittal reformats are performed Exposure: One or more of the following individualized dose reduction techniques were utilized for this examination: 1. Automated exposure control 2. Adjustment of the mA and/or kV according to patient size 3. Use of iterative reconstruction technique FINDINGS: Minimal bibasilar lung atelectasis. 4.5 mm nodule identified in the right middle lobe lung abutting the pleura. Mild decreased attenuation noted in the liver likely hepatic steatosis. Few calcified granulomas identified in the spleen. The gallbladder is mildly distended. Large gallstone identified in the proximal gallbladder. The stomach is mildly distended. The small bowel is mildly distended with fluid The appendix is dilated fluid measuring 7.5 mm in transverse dimension with moderate inflammatory fat stranding about the appendix. The distal aspect of the appendix contains some air, could be just distal to the appendix or within the appendix. Focal perforation is not completely excluded.. Feces and gas noted in the colon The bilateral kidneys enhance symmetrically. Cystic structures identified in the bilateral kidneys likely cysts with the largest measuring 1.2 cm in the right kidney. Moderate aortic atherosclerosis The urinary bladder is mildly distended. Moderate degenerative changes lumbar spine. IMPRESSION: 1. Findings consistent with acute appendicitis. The distal aspect of the appendix contains some air, could be just distal to the appendix or within the appendix. Focal perforation is not completely excluded. 2. Cholelithiasis. 3. 4.5 mm nodule identified in the right middle lobe lung abutting the pleura. Per Fleischner Society guidelines for incidentally found solid nodules measuring less than 6 mm, no follow-up is necessary if patient is considered at low risk for lung cancer. If patient is considered to be at high risk, such as with history of smoking, then CT follow-up in about 12 months can be considered. Critical results called to ordering physician at time of dictation. Electronically signed by: Derrek Holland MD (11/26/2021 8:54 PM) [id number] DICTATED and SIGNED BY: DERREK HOLLAND MD DATE: 11/26/212043 Course & Med Decision Making: Course & Med Decision Making Pertinent Labs and Imaging studies reviewed. (See chart for details) See HPI. Alert and oriented x4. Ambulatory steady gait. Skin pink warm and dry. Abdomen is generalized tenderness and tight. Bowel sounds present. Speaks in full clear sentences. Slightly febrile at 99.1. States he is unable to eat due to pain and nausea. Lungs are clear to auscultation all lobes. 2049: White blood count is slightly elevated. Patient's temp is now 99.8. I have ordered some Tylenol. I will order rapid COVID. CT is showing acute appendicitis. Spoke to Dr. Seaman he states weariness to treat with IV antibiotics and he states Zosyn is fine. He states the patient needs to be admitted to the hospital. [] Dragon Disclaimer: Dragon Disclaimer: This electronic medical record was generated, in whole or in part, using a voice recognition dictation system. Departure Departure Impression: Primary Impression: Acute appendicitis Qualified Codes: K35.80 - Unspecified acute appendicitis Disposition: ADMITTED INPATIENT Admitting Physician: TWIN Condition: STABLE Referrals: ELEUTERIO JAQUEZ (PCP) ASIYA FOX ALTITUDE CHAMBER TECHNICIAN November 26, 2021 18:31
[2021-11-26 19:36] LABS: BASO # 0.1 x10^3/uL (0.0-0.2); BASO % 1 % (0-3); EOS # 0.1 x10^3/uL (0.0-0.7); EOS % 1 % (0-3); HEMATOCRIT 41.6 % (39.0-53.0); LYMPH # 1.1 x10^3/uL (1.0-4.8); LYMPH % 9 % (24-48); MEAN CORPUSCULAR HEMOGLOBIN 32 pg (25-35); MEAN CORPUSCULAR HGB CONC 34 g/dL (31-37); MEAN CORPUSCULAR VOLUME 95 fL (79-100); MONO # 1.6 x10^3/uL (0.0-1.1); MONO % 13 % (0-9); NEUT # 9.4 x10^3/uL (1.8-7.7); NEUT % 77 % (31-73); PLATELET COUNT 196 x10^3/uL (140-400); WHITE BLOOD COUNT 12.3 x10^3/uL (4.0-11.0)
[2021-11-26 19:56] LABS: RBC,URINE 0 /HPF (0-2)
[2021-11-26 19:57] LABS: BACTERIA,URINE 0 /HPF (0-FEW)
--- NOTE | 2021-11-26 19:57 | EKG ---
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
[2021-11-26 20:03] LABS: CALCIUM 8.9 mg/dL (8.5-10.1); CREATININE 1.2 mg/dL (0.7-1.3); GFR 58.6; POTASSIUM 4.5 mmol/L (3.5-5.1)
[2021-11-26 20:08] LABS: ALBUMIN 3.3 g/dL (3.4-5.0); ALBUMIN/GLOBULIN RATIO 1.1 (1.0-1.7); TOTAL BILIRUBIN 1.5 mg/dL (0.2-1.0); TOTAL PROTEIN 6.4 g/dL (6.4-8.2)
[2021-11-26] MEDS ORDERED: IOHEXOL 300 MG/ML 100ML VIAL. IV ONE (20:15)
[2021-11-26] MEDS ORDERED: CONTRAST GIVEN. MC PRN (20:30)
--- NOTE | 2021-11-26 20:56 | RAD ---
Examination: CT of the abdomen pelvis with IV contrast HISTORY: History of abdominal tenderness, nausea COMPARISON: 11/04/2018 TECHNIQUE: Axial CT images of the abdomen pelvis were performed with IV contrast. Coronal and sagitta l reformats are performed Exposure: One or more of the following individualized dose reduction techniques were utilized for thi s examination: 1. Automated exposure control 2. Adjustment of the mA and/or kV according to patient size 3. Use of iterative reconstruction technique FINDINGS: Minimal bibasilar lung atelectasis. 4.5 mm nodule identified in the right middle lobe lung abutting t he pleura. Mild decreased attenuation noted in the liver likely hepatic steatosis. Few calcified granulomas iden tified in the spleen. The gallbladder is mildly distended. Large gallstone identified in the proximal gallbladder. The stomach is mildly distended. The small bowel is mildly distended with fluid The appendix is dilated fluid measuring 7.5 mm in transverse dimension with moderate inflammatory fat stranding about the appendix. The distal aspect of the appendix contains some air, could be just dis tashi to the appendix or within the appendix. Focal perforation is not completely excluded.. Feces and gas noted in the colon The bilateral kidneys enhance symmetrically. Cystic structures identified in the bilateral kidneys li nicola cysts with the largest measuring 1.2 cm in the right kidney. Moderate aortic atherosclerosis The urinary bladder is mildly distended. Moderate degenerative changes lumbar spine. IMPRESSION: 1. Findings consistent with acute appendicitis. The distal aspect of the appendix contains some air, could be just distal to the appendix or within the appendix. Focal perforation is not completely exc luded. 2. Cholelithiasis. 3. 4.5 mm nodule identified in the right middle lobe lung abutting the pleura. Per Fleischner Societ y guidelines for incidentally found solid nodules measuring less than 6 mm, no follow-up is necessary if patient is considered at low risk for lung cancer. If patient is considered to be at high risk, s uch as with history of smoking, then CT follow-up in about 12 months can be considered. Critical results called to ordering physician at time of dictation. Electronically signed by: Derrek Holland MD (11/26/2021 8:54 PM) [id number]
[2021-11-26] MEDS ORDERED: fentaNYL PF VIAL 100 MCG/2 ML VIAL IVP PRN (21:00)
[2021-11-26] MEDS ORDERED: ONDANSETRON PF 4 MG/2 ML VIAL. IVP PRN (21:00)
[2021-11-26] MEDS ORDERED: IV NORMAL SALINE 1000ML BAG 1,000 ML IV ONE (21:30)
[2021-11-26] MEDS ORDERED: ACETAMINOPHEN 500 MG TABLET PO ONE (21:30)
[2021-11-26] MEDS ORDERED: PIPERACILLIN/TAZOBACTAM 3.375 GM in IV NORMAL SALINE 50ML 50 ML IV ONE (21:30)
[2021-11-26] MEDS ORDERED: PIP/TAZO PER PHARMACY MC PRN (21:30)
[2021-11-26 22:00] VITALS: BP 127/51
[2021-11-27] MEDS ORDERED: PIPERACILLIN/TAZOBACTAM 3.375 GM in IV NORMAL SALINE 50ML 50 ML IV SCH (06:00)
== END 2021-11-27 | disposition home or self-care (01) | DRG 373 ==
LOC: ER 17:39 → 6 SOUTH 20:56
PROVIDERS: ADMIT Internal Medicine; ATTEND Internal Medicine
DX: K35.32 Acute appendicitis with perforation, localized peritonitis, and gangrene, without abscess (principal); Z20.822 Contact with and (suspected) exposure to COVID-19; J45.909 Unspecified asthma, uncomplicated; F32.A Depression, unspecified; G89.29 Other chronic pain; K21.9 Gastro-esophageal reflux disease without esophagitis; K80.20 Calculus of gallbladder without cholecystitis without obstruction; F41.9 Anxiety disorder, unspecified; E78.00 Pure hypercholesterolemia, unspecified; N40.0 Benign prostatic hyperplasia without lower urinary tract symptoms; Z90.89 Acquired absence of other organs; Z98.41 Cataract extraction status, right eye; Z98.42 Cataract extraction status, left eye; Z79.899 Other long term (current) drug therapy; Z82.5 Family history of asthma and other chronic lower respiratory diseases; Z91.030 Bee allergy status
CPT/HCPCS: 36415; 74177; 80053; 81001; 83605; 83690; 84484; 85025; 87426; 93005; 96361; 96374; 96375; J2405; J2543; J3010; J7030; J7040; Q9967; 99285-25; G0378